=== PATIENT | female | born 1945 | race Caucasian/White ===

== ENCOUNTER 2022-01-21 09:31 | Outpatient (CLI) | payer MEDICARE, SELFPAY ==
--- NOTE | 2022-01-21 10:57 | ECHO_ITS ---
Patient Info Name: Ivet Vergara Age: 76 years : 1945 Gender: Female Ht: 67 in Wt: 167 lbs BSA: 1.91 m2 HR: 72 bpm BP: 120 / 67 mmHg Technical Quality: Good Exam Date: 01/21/2022 11:20 AM Exam Location: [facility] Patient Status: Outpatient Admit Date: 01/21/2022 Staff Ordering Physician: Raudel De La Torre DO Survey Rodman: Jason Sanders RDCS, RT Attending Provider: Raudel De La Torre DO Referring Physician: Wil BENNETT; Exam Type: CA echo doppler color flow Study Info Indications I34.0 - Nonrheumatic mitral (valve) insufficiency Complete two-dimensional, color flow and Doppler transthoracic echocardiogram is performed. Strain analysis performed. Summary 1. Complete two-dimensional, color flow and Doppler transthoracic echocardiogram is performed. 2. Left ventricular chamber dimension is normal. 3. Left ventricular systolic function is normal, estimated at 60-65%. 4. The left ventricular diastolic function is normal. 5. E/e' 9 is minimally elevated. 6. Global longitudinal strain is normal at -19.5%. 7. Left atrial chamber dimension is mildly enlarged. 8. Right atrial chamber dimension is mildly enlarged. 9. There is mild aortic valve sclerosis. 10. There is mild aortic valve regurgitation. 11. There is mild to moderate mitral valve regurgitation. 12. There is moderate tricuspid valve regurgitation. 13. Mild pulmonary hypertension, estimated pulmonary arterial systolic pressure is 42 mmHg. 14. There is mild pulmonic regurgitation. Left Ventricle E/e' 9 is minimally elevated. Global longitudinal strain is normal at -19.5%. Left ventricular chamber dimension is normal. Left ventricular systolic function is normal, estimated at 60-65%. The left ventricular diastolic function is normal. Right Ventricle Right ventricular systolic function is normal and with normal TAPSE 2.9 cm. Right ventricular chamber dimension is normal. Left Atria Left atrial chamber dimension is mildly enlarged. Right Atria Right atrial chamber dimension is mildly enlarged. Aortic Valve The aortic valve is trileaflet. There is mild aortic valve sclerosis. There is no aortic valve stenosis. There is mild aortic valve regurgitation. Pulmonic Valve There is mild pulmonic regurgitation. Mitral Valve There is no mitral valve stenosis. There is mild to moderate mitral valve regurgitation. Tricuspid Valve There is moderate tricuspid valve regurgitation. Mild pulmonary hypertension, estimated pulmonary arterial systolic pressure is 42 mmHg. Pericardium/Pleural There is no pericardial effusion. Inferior Vena Cava Normal inferior vena cava with >50% collapse upon inspiration consistent with normal right atrial pressure, 5 mmHg. Aorta The aortic root size at the sinus of Valsalva is normal. Left Ventricular Outflow Tract Name Value Normal LVOT 2D LVOT Diameter 2.1 cm LVOT Doppler LVOT Peak Gradient 4 mmHg LVOT Mean Gradient 2 mmHg LVOT VTI 23 cm LVOT VTI/AV VTI Ratio 0.6
== END 2022-01-21 09:32 | disposition home or self-care (01) ==
LOC: ANHCARD 09:32
PROVIDERS: PCP Internal Medicine; Visit Provider Internal Medicine Cardiovascular Disease
DX: I34.0 Nonrheumatic mitral (valve) insufficiency (principal); I35.1 Nonrheumatic aortic (valve) insufficiency; I36.1 Nonrheumatic tricuspid (valve) insufficiency; I27.20 Pulmonary hypertension, unspecified; I37.1 Nonrheumatic pulmonary valve insufficiency
CPT/HCPCS: 93306

== ENCOUNTER 2022-11-16 10:23 | Outpatient (CLI) | payer MEDICARE, SELFPAY ==
--- NOTE | ~2022-11-16 | US_ITS ---
EXAMINATION: US carotid duplex BI DATE: 11/16/2022 12:09 INDICATION: Dizziness. Giddiness. TECHNIQUE: Grayscale, color Doppler, and pulsed Doppler images of the cervical carotid arteries were obtained. The degree of vessel stenosis is placed in one of the following categories: normal, <50%, 5 0-69%, >=70% but less than near-occlusion, near-occlusion, or total occlusion. Note that percent sten osis relative to normal distal artery lumen diameter is indirectly measured from velocity measurement s as described by Alessandro, et al. Radiology 2003; 229:340-346. Notes: Normal: Peak systolic velocity <125 centimeters/sec and no plaque <50%. Peak systolic velocity <125 ( EDV <40; ICA/CCA PSV ratio <2.0; used these factors only a tandem lesions or low cardiac output or co ntralateral disease) 50-69 %: PSV 125-230 (EDV 40-100; ratio 2-4) >= 70% but less than near occlusion: PSV greater than 230 (EDV > 100; ratio> 4.0) Near Occlusion: PSV that is variable; markedly narrowed lumen Occlusion: Absent flow on color/spectral Doppler and no lumen on miles scale. COMPARISON: None. FINDINGS: RIGHT: The right common carotid artery (CCA) peak systolic velocity (PSV) is 73 cm/s. The right internal car otid artery (ICA) PSV is 72 cm/s. The right ICA end-diastolic velocity (EDV) is 17 cm/s. The right IC A/CCA PSV ratio is 1.0. The external carotid artery (ECA) PSV is 99 cm/s. There is antegrade flow in the right vertebral artery. LEFT: The left CCA PSV is 81 cm/s. The left ICA PSV is 110 cm/s. The left ICA EDV is 36 cm/s. The left ICA/ CCA PSV ratio is 1.4. The ECA PSV is 79 cm/s. There is antegrade flow in the left vertebral artery. IMPRESSION: 1. Less than 50% stenosis in the right internal carotid artery by sonographic criteria. 2. Less than 50% stenosis in the left internal carotid artery by sonographic criteria. Reviewed, dictated and finalized at location A. E PAINTER IMPRESSION: 1. Less than 50% stenosis in the right internal carotid artery by sonographic chirag bae. 2. Less than 50% stenosis in the left internal carotid artery by sonographic jovan gupta.
== END 2022-11-16 10:24 | disposition home or self-care (01) ==
PROVIDERS: PCP Physician Assistant Medical; Visit Provider Nurse Practitioner Family
DX: R42 Dizziness and giddiness (principal); I65.23 Occlusion and stenosis of bilateral carotid arteries
CPT/HCPCS: 93880

== ENCOUNTER 2022-12-02 08:13 | Outpatient (CLI) | payer MEDICARE, SELFPAY ==
--- NOTE | ~2022-12-02 | NM_ITS ---
EXAMINATION: NM roxi stress w perfusion DATE: 12/02/2022 12:09 INDICATION: Chest pain TECHNIQUE: Rest images were obtained following intravenous administration of 11.8 mCi Tc99m tetrofosm in (Myoview). The patient was infused intravenously with Lexiscan (Regadenoson). Then, 33 mCi Tc99m t etrofosmin (Myoview) was administered intravenously, and stress images were obtained. Data was recons tructed into short axis and horizontal and vertical long axis SPECT images. Gated SPECT images were a lso obtained. COMPARISON: None. FINDINGS: There is no definite reversible or fixed perfusion abnormality to suggest ischemia or infar ction. There is normal left ventricular chamber size, wall motion and ejection fraction. Left ventr icular ejection fraction measures >70%. IMPRESSION: 1. Normal myocardial perfusion at rest and during stress. 2. Left ventricular ejection fraction measuring >70%. Reviewed, dictated and finalized at location A. GATHERING TECHNICIAN
--- NOTE | 2022-12-02 11:07 | ECHO_ITS ---
Patient Info Name: Ivet Walton Age: 77 years : 1945 Gender: Female Ht: 67 in Wt: 165 lbs BSA: 1.89 m2 HR: 71 bpm BP: 132 / 73 mmHg Technical Quality: Good Exam Date: 12/02/2022 8:56 AM Exam Location: [facility] Patient Status: Outpatient Admit Date: 12/02/2022 Staff Ordering Physician: Raudel De La Torre DO Workers Compensation Claims Assistant: Victoria Marin RDCS Attending Provider: Raudel De La Torre DO Exam Type: CA echo doppler color flow Study Info Complete two-dimensional, color flow and Doppler transthoracic echocardiogram is performed. Summary 1. Complete two-dimensional, color flow and Doppler transthoracic echocardiogram is performed. 2. Left ventricular chamber dimension is normal. 3. Left ventricular systolic function is normal, estimated at 60-65%. 4. The left ventricular diastolic function is grade II diastolic dysfunction. 5. E/e' 8 is minimally elevated. 6. Left atrial chamber dimension is moderately enlarged. 7. There is mild aortic valve sclerosis. 8. There is mild aortic valve regurgitation. 9. There is moderate mitral valve regurgitation. 10. There is moderate tricuspid valve regurgitation. 11. No pulmonary hypertension, estimated pulmonary arterial systolic pressure is 39 mmHg. 12. There is mild pulmonic regurgitation. Left Ventricle E/e' 8 is minimally elevated. Left ventricular chamber dimension is normal. Left ventricular systolic function is normal, estimated at 60-65%. The left ventricular diastolic function is grade II diastolic dysfunction. Right Ventricle Right ventricular systolic function is normal and with normal TAPSE 2.6 cm. Right ventricular chamber dimension is normal. Left Atria Left atrial chamber dimension is moderately enlarged. Right Atria Right atrial chamber dimension is normal. Aortic Valve The aortic valve is trileaflet. There is mild aortic valve sclerosis. There is no aortic valve stenosis. There is mild aortic valve regurgitation. Pulmonic Valve There is mild pulmonic regurgitation. Mitral Valve There is no mitral valve stenosis. There is moderate mitral valve regurgitation. Tricuspid Valve There is moderate tricuspid valve regurgitation. No pulmonary hypertension, estimated pulmonary arterial systolic pressure is 39 mmHg. Pericardium/Pleural There is no pericardial effusion. Inferior Vena Cava Normal inferior vena cava with >50% collapse upon inspiration consistent with normal right atrial pressure, 5 mmHg. Aorta The aortic root size at the sinus of Valsalva is normal. Left Ventricular Outflow Tract Name Value Normal LVOT 2D LVOT Diameter 2.0 cm LVOT Doppler LVOT Peak Gradient 5 mmHg LVOT Mean Gradient 3 mmHg LVOT VTI 24 cm LVOT VTI/AV VTI Ratio 0.7 LVOT Stroke Volume 76 ml LVOT CO 14.8 l/min LVOT CI 7.8 l/min/m2 Pulmonic Valve Name
--- NOTE | 2022-12-02 11:15 | EST_ITS ---
Patient Info Name: Ivet Walton Age: 77 years : 1945 Gender: Female Ht: 67 in Wt: 165 lbs BSA: 1.89 m2 HR: 77 bpm BP: 156 / 82 mmHg Heart Rhythm: Sinus Rhythm Exam Date: 12/02/2022 11:14 AM Exam Location: [facility] Stress Patient Status: Outpatient Admit Date: 12/02/2022 Staff Ordering Physician: Raudel De La Torre DO Attending Provider: Raudel De La Torre DO Exercise Technologist: Neva Hargrove CT Exercise Physician: Raudel De La Torre DO Exam Type: CA stress roxi w NM Study Info Indications I35.9 - UNSPECIFIED VALVE DISORDERS A regadenoson stress test was performed. Summary 1. 1. Negative lexiscan stress test for ischemic ST changes by ECG criteria. 2. 2. Baseline hypertension. 3. 3. Nuclear scan to follow and will be reported separately. Please correlate with it. 4. 4. Patient informed of the above results. Protocol: Lexiscan Rest HR: 77 bpm Peak HR: 108 bpm Rest Sys BP: 156 mmHg Peak Sys BP: 177 mmHg Max Pred HR: 144 bpm % Max Pred HR: 75 % Target HR: 122 bpm Max RPP: 19,116 bpm*mmHg Termination Reason: Completed protocol Cardiac Symptoms: Shortness of breath Rest Horn BP: 82 mmHg Peak Horn BP: 85 mmHg Total Dose: 0.4 mg Resting ECG Sinus rhythm, frequent PVC's. Normal sinus rhythm - normal ECG. Stress ECG No ST changes. Arrhythmias None. Report Signatures
== END 2022-12-02 08:14 | disposition home or self-care (01) ==
PROVIDERS: PCP Physician Assistant Medical; Visit Provider Internal Medicine Cardiovascular Disease
DX: I34.0 Nonrheumatic mitral (valve) insufficiency (principal); R07.9 Chest pain, unspecified; I35.1 Nonrheumatic aortic (valve) insufficiency; I36.1 Nonrheumatic tricuspid (valve) insufficiency
CPT/HCPCS: 78452; 93017; 93306; A9502; J2785

== ENCOUNTER → 2023-09-27 09:41 | Outpatient (CLI) | payer MEDICARE, SELFPAY ==
--- NOTE | ~2023-09-27 | MR_ITS ---
EXAMINATION: MR brain/brain stem wo/w con DATE: 09/27/2023 10:26 INDICATION: Headache, unspecified. TECHNIQUE: Magnetic resonance imaging (MRI) of the brain and brainstem was performed without and with 13 mL MultiHance intravenous contrast. COMPARISON: None. FINDINGS: There are scattered areas of nonspecific increased T2-weighted signal intensity in the cere bral white matter and andry. There is no intracranial hemorrhage, acute infarction, or abnormal intrac ranial mass lesion. The ventricles are normal in size. There are likely changes of right ocular lens replacement surgery. There is mild mucosal thickening in the paranasal sinuses. There is a trace righ t mastoid effusion. IMPRESSION: 1. Moderate nonspecific cerebral white matter disease and pontine disease, which likely represents ch ronic small vessel ischemic disease. Reviewed, dictated and finalized at location A. 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 Moderate nonspecific cerebral white matter disease and pontine disease, whic h likely represents chronic small vessel ischemic disease.
== END ==
PROVIDERS: PCP Family Medicine; Visit Provider Family Medicine
DX: G43.909 Migraine, unspecified, not intractable, without status migrainosus (principal); R90.82 White matter disease, unspecified
CPT/HCPCS: 70553; A9577

== ENCOUNTER 2023-11-05 12:30 | Outpatient (RCR) | payer MEDICARE, SELFPAY ==
--- NOTE | 2023-09-02 16:31 | PTOPEVAL1 ---
Assessment and note entered by Milana Fofana, PT Evaluation Information Assessment Status Evaluation Diagnosis Migraine unspec, headaches unspec, cervical Spondylosis w/out radiculopathy or myelopathy Therapy conditions Cervicalgia, abnormal posture Onset weeks ago Subjective Information Pt reports has had headaches and migraines. Reports she went to Dr. Esquivel for her headaches and was referred to therapy. Was also provided new medication. Hasn't noticed a big difference with this The day after she was getting her hair done and just as she was standing up she felt like she was passing out. Caught herself and did not hit the ground. Went to the ER who found inflammation in the gut, slightly decreased magnesium, dehydration , IV fluids. Royal better after the fluids. Blood work and urine came back normal. Headache is all the time, but is positional. Looking up is the worst. History of multilevel anterior cervical fusion. Pt reports doesn't think this is migraines. States ankylosing spondylitis and it flares up in different areas of the body. Uses a type of prednisone when has flare ups. Pt repots prior level was functioning with one-two tylenol, and would lay down at times for her neck . This is what has been her norm for the last few months. Also has history of upper, middle, low back pain. Has been really bad the last 4 years. At the time was lifting her for mobilities and ADLs Reported Pain Level Pain Score 2: Self Report Assessment PT Clinical Summary Pt presents with complaints of headaches, migraines, and neck pain. Reports she doesn't think her headaches are migraines but that something is wrong with her neck. She has a history of multilevel anterior cervical fusion multiple years old. Reports her usual is one tylenol a day but her pain has increased recently in the last month after picking up pecans. Evaluation demos multiple areas of increased muscle tonicity, abnormal postures, decreased
--- NOTE | 2023-09-02 16:32 | OPREHPOC ---
Outpatient Therapy Plan of Care This is a Multidisciplinary Plan of Care that may contain components documented by all disciplines (PT, OT, and ST.) PT Problem 1 PT Problem #1 Knowledge Deficit PT Goal 1 Goal Pt will be independent in HEP Pt will verbalize understanding of diagnosis and prognosis Target Visit 8 PT Problem 2 PT Problem #2 Pain PT Goal 1 Goal Pt will report greatest pain level at 5/10 or less to improve ADLs Target Visit 8 PT Goal 2 Goal Pt will report greatest pain level at 2/10 or less to improve ADLs Target Visit 16 PT Problem 3 PT Problem #3 Impaired Flexibility PT Goal 1 Goal Pt will demo improved pectoralis major and minor flexibility to improve roundd postures Target Visit 16 PT Problem 4 PT Problem #4 Impaired Coordination PT Goal 1 Goal Pt will demo improved postures of forward head and rounded shoulders by 50% Target Visit 16
--- NOTE | 2023-09-22 14:43 | PCPTNOTE ---
Patient called & cancelled scheduled appointment this date due to waking up feeling dizzy not feeling safe to get out of the house today.
--- NOTE | 2023-10-04 14:07 | PTOPPROG ---
Assessment and note entered by Milana Fofana, PT Assessment Status Progress Report Diagnosis Migraine unspec, headaches unspec, cervical Spondylosis w/out radiculopathy Therapy conditions Cervicalgia, abnormal posture Subjective Information Pt reports still is rough at night. Took a Tylenol before therapy today. Reports is bummed about having ischemia all over. States looked at google and looked up information related to her ischemia. Pt reports still has headaches most of the time but the pain is less intense. Sometimes feels burning in forehead and face but sometimes is in the background. Occipital area is always in pain, sometimes in temples. Thinks had RSV and thinks when this is gone will be helpful. Reports had her CT of head, but believes they on purpose did not do her neck ecaue they may have heard she is being sent to a neurologist and that they may want to do it himself. Pt reports thinks some improvement overall. States only 10%, at times thinks is a little bit better. Assessment PT Clinical Summary Pt has attended 6 visits in 4 weeks, reports 10% improvement overall. Does show improvement in passive range of cervical spine, improved postures , improved tonicity, improved flexibility overall. Pt has partially met multiple goals and has fully met short term goal for posture and pectoral flexibility. Pt does appear to be diagnosis focused at times, will continue to benefit from physical therapy to address deficits, pain, and improve function. Plan of Care Interventions Electrical Stimulation,Hot Pack/Cold Pack,Manual Therapy,Neuro Re-education,Patient/Caregiver Educati,Therapeutic Activities,Therapeutic Exercise Other Interventions Taping, dry needling PT Services Indicated Yes Treatment Frequency and Cont POC 1-2 x weekly x 4 weeks Duration These treatments will address the objective and functional deficits as defined above. The patient will be advanced safely and appropriately in order for the patient to progress towards his/her prior level of function. Additional exercises will be introduced and as well as a comprehensive home exercise program upon discharge, if needed, ?to ensure carryover of functional gains achieved in the clinic. This treatment plan has been reviewed and agreement upon by the patient.
--- NOTE | 2023-10-18 16:02 | PCPTNOTE ---
Patient called & cancelled scheduled appointment this date due to having a doctor's appointment at same time of her treatment
--- NOTE | 2023-11-05 13:18 | PTOPDC ---
Assessment and note entered by Milana Fofana, PT Assessment Status Discharge Diagnosis Migraine unspec, headaches unspec, cervical Spondylosis w/out radiculopathy Onset weeks ago Subjective Information -Pt reports feeling close to back to her normal -Headaches are doing better. Pt states started to have a headache last night but used ice on her neck and this helped. -Takes 1 advil and 1 baby aspirin a day. Takes 1 Baclofen before going to bed. Was able to get a thicker pillow also and this has helped. -Pt reports reading a recipe is difficult due to eye sight and night time is the most difficult. Reported Pain Level Pain Score 1: Self Report Assessment PT Clinical Summary Pt has attended therapy consistently for her headaches and neck pain. Reports headaches are greatly improved. Cont to have neck pain that increases to 7/10 usually at night and with reading. Though her posture and alignment have improved, her rotation cervical ROM has improved, she cont to have restrictions WFL for post cervical fusion. Pt does at times repeat herself suggesting poor carry over of information at times thus may not be receiving full benefit of instruction for home and posture activities. However she appears to have met max benefit for therapy at this time.
== END 2023-11-05 13:29 | disposition home or self-care (01) ==
LOC: ANHHIPT 12:30
PROVIDERS: PCP Physician Assistant Medical; Visit Provider Family Medicine
DX: G43.909 Migraine, unspecified, not intractable, without status migrainosus (principal); M47.812 Spondylosis without myelopathy or radiculopathy, cervical region
CPT/HCPCS: 97014; 97110; 97112; 97140; 97162; 97750; G0283

== ENCOUNTER 2024-04-09 10:04 | Emergency (ER) | payer MEDICARE, SELFPAY ==
[2024-04-09] VITALS (7 sets, daily range): BP systolic 111–130; BP diastolic 45–56; PULSE 50–90; RESP 15–20; TEMP 36.6; O2SAT 98–100
--- NOTE | ~2024-04-09 | XR_ITS ---
XR chest 2V 04/09/2024 10:35 Indication: Shortness of breath. Chest pain. Procedure: PA and lateral views of the chest Comparison: 11/27/2022 Findings: There are diffuse bilateral interstitial infiltrates, likely edema. No significant effusion . No pneumothorax. Heart size normal. There are cholecystectomy clips. Impression: 1: Diffuse bilateral interstitial infiltrates, most likely edema. Reviewed, dictated and finalized at location B. Impression: 1: Diffuse bilateral interstitial infiltrates, most likely edema.
--- NOTE | 2024-04-09 10:14 | ECG_ITS ---
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 Measurements Intervals [place] Rate: 82 P: 192 NV: 145 QRS: 1 QRSD: 86 T: 42 QT: 355 QTc: 417 Interpretive Statements SINUS RHYTHM WITH PVCS OCCURRING IN A PATTERN OF BIGEMINY LOW QRS VOLTAGE ABNORMAL ECG No previous ECG available for comparison Electronically Signed On 04-10-2024 07:58:46 CDT by Nahum Lamar M.D.
[2024-04-09 10:30] LABS: Basophils Absolute Auto 0.1 K/mm3 (0.0-0.1); Basophils Percent Auto 1.2 % (0.2-1.2); Eosinophils Absolute Auto 0.2 K/mm3 (0-0.3); Eosinophils Percent Auto 2.8 % (0-4.4); Hematocrit 33.5 % (37.0-47.0); Hemoglobin 11.1 g/dL (12.0-15.0); Immature Granulocyte Absolute 0.01 K/mm3 (0.00-0.031); Immature Granulocyte Percent A 0.1 % (0-0.5); Lymphocytes Absolute Auto 2.35 K/mm3 (0.9-3.2); Lymphocytes Percent Auto 31.7 % (18.3-44.2); Mean Corpuscular HGB Conc 33.1 g/dl (32-36); Mean Corpuscular Hemoglobin 32.2 pg (26-34); Mean Corpuscular Volume 97.1 fl (80-100); Mean Platelet Volume 11.6 fl (7.4-10.4); Monocytes Absolute Auto 0.9 K/mm3 (0.1-0.6); Monocytes Percent Auto 12.3 % (2.6-8.5); Neutrophils Absolute Auto 3.9 K/mm3 (1.3-6.7); Neutrophils Percent Auto 51.9 % (45.5-73.1); Platelet Count Result 259 k/mm3 (150-375); Red Blood Count 3.45 M/mm3 (4.2-5.4); Red Cell Distribution Width 14.3 % (11.5-14.5); White Blood Count 7.4 K/mm3 (4.5-10.0)
[2024-04-09 10:39] LABS: Alanine Aminotransferase 21 U/L (6-35); Albumin Level 3.7 g/dL (3.5-5.1); Alkaline Phosphatase 108 U/L (38-126); Anion Gap 8 mmol/L (4-12); Aspartate Amino Transferase 37 U/L (14-36); Bilirubin,Total 0.5 mg/dL (0.2-1.3); Blood Urea Nitrogen 19 mg/dL (7-17); Calcium 8.4 mg/dL (8.4-10.2); Carbon Dioxide 23 mmol/L (22-30); Chloride 108 mmol/L (98-107); Estimated CRCL calculation 40 ml/min; Estimated Glomerular Filt Rate 54; Glucose 98 mg/dL (65-110); Sodium 139 mmol/L (137-145)
[2024-04-09] MEDS: LEVALBUTEROL NEB 1.25 MG/3 ML 2.5 MG INHALATION (11:04)
[2024-04-09 11:56] LABS: NT Pro B Type Natriuretic Pept 5730 pg/mL (19.9-100)
[2024-04-09] MEDS: FUROSEMIDE INJ 40 MG/4 ML VIAL IV PUSH (12:23)
--- NOTE | 2024-04-09 12:36 | ED.SOB ---
HPI - SOB/Dyspnea General Chief Complaint: Shortness of Breath/Dyspnea Stated Complaint: sob, cough Time Seen by Provider: 04/09/24 10:16 History of Present Illness HPI Narrative: Patient is a 79-year-old female who presents ER with cough mild shortness of breath. Worsening over last few days. Associated with a 7 lb weight gain. No lower extremity edema. Denies chest pain chest pressure. No runny nose or sore throat or productive cough. Does not necessarily endorse orthopnea. She sees Dr. De La Torre and has a monitor due to her bigeminy. Related Data Home Medications Medication Instructions Recorded Confirmed valacyclovir 500 mg tablet 500 mg .Route .COMPLEX 10/07/22 01/05/24 cholecalciferol (vitamin D3) 50 50 mcg PO DAILY 04/06/23 01/05/24 mcg (2,000 unit) capsule famotidine 20 mg tablet 20 mg PO DAILY 04/06/23 01/05/24 multivitamin 1 tablet PO DAILY 04/06/23 01/05/24 Allergies Allergy/AdvReac Type Severity Reaction Status Date / Time Opioids - Morphine Analogues Allergy Intermediate Swelling Verified 04/09/24 10:28 tramadol [From Ultracet] AdvReac Severe Itching Verified 04/09/24 10:28 ubrogepant [From Ubrelvy] AdvReac Severe Headache Verified 04/09/24 10:28 Qulipta AdvReac Severe Headache Uncoded 04/09/24 10:28 Review of Systems Review of Systems: All systems reviewed & are unremarkable except as noted in HPI and below Constitutional: Constitutional: Reports no additional constitutional complaints ENT: Reports system reviewed and no additional complaints, except as documented Cardiovascular: Cardiovascular: Reports no additional cardiovascular complaints Respiratory: Respiratory: Reports cough, Denies dyspnea and Denies wheezing Gastrointestinal: Gastrointestinal: Reports no additional gastrointestinal complaints Musculoskeletal: Musculoskeletal: Reports no additional musculoskeletal complaints [facility] Past Medical History Medical History Ankylosing spondylitis Arthritis CAD (coronary artery disease) Cervical osteoarthritis Congestive heart failure with left ventricular diastolic dysfunction Degenerative arthritis of knee, bilateral Fibromyalgia Headache Headache History of heart attack History of hiatal hernia IBS (irritable bowel syndrome) Left shoulder pain Migraine Preoperative clearance Surgical History Surgical History H/O colonoscopy with polypectomy 01/21/23 Dr. Mark History of axillary surgery History of cataract surgery History of foot surgery History of hand surgery History of neck surgery History of rotator cuff surgery History of tonsillectomy and adenoidectomy Family History Family History Mother Kidney malignancy Social History Social History Smoking status: Never smoker Alcohol intake: never Substance use: never Substance use type: does not use Lack of Transportation: No Lack of Food: Never True Current Housing: I Have Housing Concerned About Future Housing: No Difficulty Paying Gas/Electric Bills: No Difficulty Paying for Meds: No Currently Unemployed: No Education: High School Diploma/GED Difficulty w/ Childcare or Family Care: No Living arrangements: with family Occupation/Education: retired Gender identity (if verbalized by the patient): Female Sexual Orientation (if Verbalized by the Patient): Straight or Heterosexual Exam Narrative: GENERAL: Well-appearing, well-nourished, and in no acute distress. HEAD: Normocephalic, atraumatic. ENT: Mucous membranes moist. CHEST: Faint basilar crackles. No respiratory distress. HEART: Regular rate and rhythm. Normal peripheral pulses. ABDOMEN: Soft, nontender, nondistended. EXTREMITIES: Normal range of motion. No edema. SKIN: Warm, dry, no rash. NEUR
== END 2024-04-09 13:40 | disposition home or self-care (01) ==
PROVIDERS: Emergency Provider Emergency Medicine; PCP Family Medicine
DX: I50.9 Heart failure, unspecified (principal); M19.90 Unspecified osteoarthritis, unspecified site; I25.10 Atherosclerotic heart disease of native coronary artery without angina pectoris; M79.7 Fibromyalgia; I25.2 Old myocardial infarction
CPT/HCPCS: 36415; 71046; 80053; 83880; 85025; 93005; 94640; 96374; 99284; J1940

== ENCOUNTER 2024-05-25 08:14 | Outpatient (CLI) | payer MEDICARE, SELFPAY ==
--- NOTE | ~2024-05-25 | NM_ITS ---
EXAMINATION: NM roxi stress w perfusion DATE: 05/25/2024 11:53 INDICATION: Ventricular tachycardia TECHNIQUE: Rest images were obtained following intravenous administration of 9.9 mCi Tc99m tetrofosmi n (Myoview). The patient was infused intravenously with Lexiscan (Regadenoson). Then, 31.2 mCi Tc99m tetrofosmin (Myoview) was administered intravenously, and stress images were obtained. Data was recon structed into short axis and horizontal and vertical long axis SPECT images. Gated SPECT images were also obtained. COMPARISON: None. FINDINGS: There is no definite reversible or fixed perfusion abnormality to suggest ischemia or infar ction. There is normal left ventricular chamber size, wall motion and ejection fraction. Left ventr icular ejection fraction measures 64%. IMPRESSION: 1. Normal myocardial perfusion at rest and during stress. 2. Left ventricular ejection fraction measuring 64%. Reviewed, dictated and finalized at location A.
--- NOTE | 2024-05-25 08:42 | ECHO_ITS ---
Patient Info Name: Ivet Walton Age: 79 years : 1945 Gender: Female Ht: 67 in Wt: 150 lbs BSA: 1.80 m2 HR: 78 bpm BP: 131 / 78 mmHg Heart Rhythm: Sinus Arrhythmia Technical Quality: Good Exam Date: 05/25/2024 9:12 AM Exam Location: Echo Lab Patient Status: Outpatient Admit Date: 05/25/2024 Staff Ordering Physician: Raudel De La Torre DO Oyster Culturist: Priyanka Rodas RDCS Attending Provider: Raudel De La Torre DO Referring Physician: Wil BENNETT; Exam Type: CA echo doppler color flow Study Info Indications - other ventricular tacchycardia Complete two-dimensional, color flow and Doppler transthoracic echocardiogram is performed. Summary 1. Complete two-dimensional, color flow and Doppler transthoracic echocardiogram is performed. 2. Left ventricular chamber dimension is normal. 3. Left ventricular systolic function is normal, estimated at 65-70%. 4. The left ventricular diastolic function is abnormal. 5. E/e' 10 is mildly elevated. 6. Left atrial chamber dimension is moderately enlarged. 7. Right atrial chamber dimension is moderately enlarged. 8. There is mild aortic valve sclerosis. 9. There is mild aortic valve regurgitation. 10. There is moderate mitral valve regurgitation. 11. There is moderate to severe tricuspid valve regurgitation. 12. Moderate pulmonary hypertension, estimated pulmonary arterial systolic pressure is 51 mmHg. 13. There is trace pulmonic regurgitation. Left Ventricle E/e' 10 is mildly elevated. Left ventricular chamber dimension is normal. Left ventricular systolic function is normal, estimated at 65-70%. The left ventricular diastolic function is abnormal. Right Ventricle Right ventricular systolic function is normal and with normal TAPSE 2.7 cm. Right ventricular chamber dimension is normal. Left Atria Left atrial chamber dimension is moderately enlarged. Right Atria Right atrial chamber dimension is moderately enlarged. Aortic Valve The aortic valve is trileaflet. There is mild aortic valve sclerosis. There is no aortic valve stenosis. There is mild aortic valve regurgitation. Pulmonic Valve There is trace pulmonic regurgitation. Mitral Valve There is no mitral valve stenosis. There is moderate mitral valve regurgitation. Tricuspid Valve There is moderate to severe tricuspid valve regurgitation. Moderate pulmonary hypertension, estimated pulmonary arterial systolic pressure is 51 mmHg. Pericardium/Pleural There is no pericardial effusion. Inferior Vena Cava Normal inferior vena cava with >50% collapse upon inspiration consistent with normal right atrial pressure, 5 mmHg. Aorta The aortic root size at the sinus of Valsalva is normal. Left Ventricular Outflow Tract Name Value Normal LVOT 2D LVOT Diameter 2.0 cm LVOT Doppler LVOT Peak Gradient 2 mmHg LVOT Mean Gradient 1 mmHg LVOT VTI 20 cm LVOT VTI/AV VTI Ratio 0.6 LVOT Stroke Volume 61 ml LVOT CO 3.4 l/min LVOT CI 1.9 l/min/m2 Mitral Valve
--- NOTE | 2024-05-25 10:02 | EST_ITS ---
Patient Info Name: Ivet Walton Age: 79 years : 1945 Gender: Female Ht: 67 in Wt: 150 lbs BSA: 1.80 m2 HR: 59 bpm BP: 141 / 80 mmHg Heart Rhythm: Sinus Rhythm Exam Date: 05/25/2024 10:54 AM Exam Location: Echo Lab Patient Status: Outpatient Admit Date: 05/25/2024 Staff Ordering Physician: Raudel De La Torre DO Attending Provider: Raudel De La Torre DO Exercise Technologist: Neva Hargrove CT Exercise Physician: Raudel De La Torre DO Exam Type: CA stress roxi w NM Study Info Indications I47.2 - Ventricular tachycardia A regadenoson stress test was performed. Summary 1. 1. Negative lexiscan stress test for ischemic ST changes by ECG criteria. 2. 2. Stable hemodynamics throughout the test. 3. 3. Nuclear scan to follow and will be reported separately. Please correlate with it. 4. 4. Patient informed of the above results. Protocol: Lexiscan Rest HR: 59 bpm Peak HR: 76 bpm Rest Sys BP: 141 mmHg Peak Sys BP: 138 mmHg Max Pred HR: 142 bpm % Max Pred HR: 54 % Target HR: 121 bpm Max RPP: 10,488 bpm*mmHg Termination Reason: Completed protocol Cardiac Symptoms: Shortness of breath Total Time: 1 min : 0 sec Rest Horn BP: 80 mmHg Peak Horn BP: 60 mmHg Total Dose: 0.4 mg Resting ECG Sinus rhythm. Stress ECG No ST changes. Arrhythmias None. Report Signatures
== END 2024-05-25 08:15 | disposition home or self-care (01) ==
LOC: ANHCARD 08:15
PROVIDERS: PCP Family Medicine; Visit Provider Internal Medicine Cardiovascular Disease
DX: I47.29 Other ventricular tachycardia (principal)
CPT/HCPCS: 78452; 93017; 93306; A9502; J2785

== ENCOUNTER 2024-06-05 11:39 | Observation (INO) | payer MEDICARE, SELFPAY ==
[2024-06-05] VITALS (43 sets, daily range): BP systolic 100–137; BP diastolic 40–60; PULSE 49–90; RESP 11–29; TEMP 36.6–36.7; O2SAT 96–100; BMI 23.3
--- NOTE | ~2024-06-05 | CT_ITS ---
EXAMINATION: CTA chest PE protocol DATE: 06/05/2024 18:13 INDICATION: chest pain TECHNIQUE: Computed tomography angiography (CTA) of the chest was performed with 100 mL Omnipaque-350 intravenous contrast timed to evaluate the pulmonary arteries. Coronal maximum intensity projection 3D-reconstructions were created by the technologist. The dose-length product (DLP) was 206.66 mGy-cm. Automated exposure control and iterative reconstruction technique were employed. COMPARISON: X-ray chest, same date. FINDINGS: Lung parenchyma and airways: Mild septal thickening and scattered groundglass opacities.. Pleura: Unremarkable. Thoracic inlet, axillae and chest wall: Unremarkable. Thoracic aorta: No significant dilation. No dissection. Mediastinum: Small hiatal hernia. Dilated central pulmonary arteries as can be seen with pulmonary ar terial hypertension. Heart and pericardium: Cardiomegaly. Mitral calcification. Coronary artery calcifications: Mild. Upper abdomen: No significant finding. Status post cholecystomy. Bones: No acute osseous finding. Partially visualized ACDF hardware. Pulmonary arteries: Study quality: Adequate. No pulmonary emboli detected. IMPRESSION: No CT evidence of acute pulmonary embolus. Mild interstitial pulmonary edema. Reviewed, dictated and finalized at location K.
--- NOTE | ~2024-06-05 | XR_ITS ---
EXAMINATION: XR chest 2V DATE: 06/05/2024 12:37 INDICATION: Bradycardia. Dizziness. TECHNIQUE: Frontal and lateral views of the chest were obtained. COMPARISON: Chest 2 views 05/22/2024 FINDINGS: There is a diffuse interstitial pattern in the lungs. No pleural effusion or pneumothorax. The heart size is normal. There are changes of anterior fusion procedure in cervical spine. Surgical clips in the right upper quadrant are likely from cholecystectomy. There is mild chronic anterior wed ging of multiple vertebral bodies. IMPRESSION: 1. Diffuse interstitial pattern in the lungs, consistent with mild pulmonary edema versus chronic akshat g disease. Reviewed, dictated and finalized at location A. IMPRESSION: 1. Diffuse interstitial pattern in the lungs, consistent with mild pulmonary ed nat[place] versus chronic lung disease.
--- NOTE | 2024-06-05 11:40 | ECG_ITS ---
Test Date: 2024-06-05 11:43:03 Measurements Intervals [place] Rate: 64 P: 74 [place]: 205 QRS: -1 QRSD: 93 T: 51 QT: 389 QTc: 404 Interpretive Statements SINUS RHYTHM WITH FREQUENT VENTRICULAR PREMATURE COMPLEXES IN A BIGEMINAL PATTERN CONSIDER PREVIOUSSEPTAL MYOCARDIAL INFARCTION , ABNORMAL ECG Compared to ECG 04/09/2024 10:18:40 NO SIGNIFICANT CHANGE Electronically Signed On 06-05-2024 17:13:40 CDT by Nahum Lamar M.D.
[2024-06-05 13:05] LABS: Basophils Absolute Auto 0.1 K/mm3 (0.0-0.1); Basophils Percent Auto 0.9 % (0.2-1.2); Eosinophils Absolute Auto 0.2 K/mm3 (0-0.3); Eosinophils Percent Auto 2.6 % (0-4.4); Hematocrit 31.3 % (37.0-47.0); Hemoglobin 10.3 g/dL (12.0-15.0); Immature Granulocyte Absolute 0.01 K/mm3 (0.00-0.031); Immature Granulocyte Percent A 0.2 % (0-0.5); Lymphocytes Absolute Auto 1.89 K/mm3 (0.9-3.2); Lymphocytes Percent Auto 32.4 % (18.3-44.2); Mean Corpuscular HGB Conc 32.9 g/dl (32-36); Mean Corpuscular Hemoglobin 31.8 pg (26-34); Mean Corpuscular Volume 96.6 fl (80-100); Mean Platelet Volume 10.9 fl (7.4-10.4); Monocytes Absolute Auto 0.7 K/mm3 (0.1-0.6); Monocytes Percent Auto 11.3 % (2.6-8.5); Neutrophils Absolute Auto 3.1 K/mm3 (1.3-6.7); Neutrophils Percent Auto 52.6 % (45.5-73.1); Platelet Count Result 266 k/mm3 (150-375); Red Blood Count 3.24 M/mm3 (4.2-5.4); Red Cell Distribution Width 14.5 % (11.5-14.5); White Blood Count 5.8 K/mm3 (4.5-10.0)
[2024-06-05 13:15] LABS: Alanine Aminotransferase 26 U/L (6-35); Alkaline Phosphatase 89 U/L (38-126); Anion Gap 7 mmol/L (4-12); Aspartate Amino Transferase 41 U/L (14-36); Bilirubin,Total 0.2 mg/dL (0.2-1.3); Blood Urea Nitrogen 22 mg/dL (7-17); Calcium 8.6 mg/dL (8.4-10.2); Carbon Dioxide 26 mmol/L (22-30); Chloride 103 mmol/L (98-107); Estimated CRCL calculation 45 ml/min; Estimated Glomerular Filt Rate > 60; Glucose 87 mg/dL (65-110); Lipase 58 U/L (23-300); Potassium 4.2 mmol/L (3.4-5.0); Sodium 136 mmol/L (137-145)
[2024-06-05] MEDS: ASPIRIN 81 MG CHEWABLE TABLET 324 MG PO (13:20)
[2024-06-05 13:24] LABS: INR 1.3; Prothrombin Time 16.8 Seconds (11.1-14.7)
[2024-06-05 13:25] LABS: Partial Thromboplastin Time 38.4 Seconds (22.3-36.8)
[2024-06-05 13:29] LABS: Troponin I < 0.012 ng/mL (0.000-0.034)
[2024-06-05] MEDS: SODIUM CHLORIDE 0.9% IV 500 ML 999 ML IV CONT (13:42)
--- NOTE | 2024-06-05 15:02 | ED.DIZZY ---
HPI - Dizziness General Chief Complaint: Dizziness Stated Complaint: chest pain Time Seen by Provider: 06/05/24 12:47 History of Present Illness HPI Narrative: This is a 79-year-old female, with history of coronary artery disease diastolic blood pressure, who presents emergency department complaining of lightheadedness and chest pain beginning at approximately 03:00 o'clock this morning. The patient states he was at rest when she felt palpitations and sharp chest pain. This worsens with standing and was associated with lightheadedness. She denies loss of consciousness, focal weakness or numbness. She has no other complaints at this time. Related Data Home Medications Medication Instructions Recorded Confirmed valacyclovir 500 mg tablet 500 mg .Route .COMPLEX 10/07/22 05/29/24 cholecalciferol (vitamin D3) 50 50 mcg PO DAILY 04/06/23 05/29/24 mcg (2,000 unit) capsule famotidine 20 mg tablet 20 mg PO DAILY 04/06/23 05/29/24 multivitamin 1 tablet PO DAILY 04/06/23 05/29/24 amitriptyline 25 mg tablet 25 mg PO DAILY 04/10/24 05/29/24 baclofen 10 mg tablet 10 mg PO DAILY 04/10/24 05/29/24 Allergies Allergy/AdvReac Type Severity Reaction Status Date / Time Opioids - Morphine Analogues Allergy Intermediate Swelling Verified 06/05/24 13:22 tramadol [From Ultracet] AdvReac Severe Itching Verified 06/05/24 13:22 ubrogepant [From Ubrelvy] AdvReac Severe Headache Verified 06/05/24 13:22 Qulipta AdvReac Severe Headache Uncoded 06/05/24 13:22 Review of Systems Review of Systems: All systems reviewed & are unremarkable except as noted in HPI and below PMFSH Past Medical History Medical History Ankylosing spondylitis Arthritis CAD (coronary artery disease) Cervical osteoarthritis Congestive heart failure with left ventricular diastolic dysfunction Degenerative arthritis of knee, bilateral Fibromyalgia Headache Headache History of heart attack History of hiatal hernia IBS (irritable bowel syndrome) Left shoulder pain Migraine Preoperative clearance Surgical History Surgical History H/O colonoscopy with polypectomy 01/21/23 Dr. Mark History of axillary surgery History of cataract surgery History of foot surgery History of hand surgery History of neck surgery History of rotator cuff surgery History of tonsillectomy and adenoidectomy Family History Family History Mother Kidney malignancy Social History Social History Smoking status: Never smoker Alcohol intake: never Substance use: never Substance use type: does not use Lack of Transportation: No Lack of Food: Never True Current Housing: I Have Housing Concerned About Future Housing: No Difficulty Paying Gas/Electric Bills: No Difficulty Paying for Meds: No Currently Unemployed: No Education: High School Diploma/GED Difficulty w/ Childcare or Family Care: No Living arrangements: with family Occupation/Education: retired Gender identity (if verbalized by the patient): Female Sexual Orientation (if Verbalized by the Patient): Straight or Heterosexual Exam Narrative: GENERAL: Well-developed, well-nourished, and in no acute distress. HEAD: Normocephalic, atraumatic. EYES: PERRLA and EOMI. CHEST: Faint rales in the bilateral upper lung lira with normal breath sounds in the bilateral lower lung lira. No respiratory distress. No rales or rhonchi HEART: Regular rate and rhythm. No murmur heard. Normal peripheral pulses. ABDOMEN: Soft, nontender, nondistended, normal active bowel sounds. EXTREMITIES: Normal range of motion. No edema. SKIN: Warm, dry, no rash. NEURO: Alert and oriented x3. No focal deficit. Moving all 4 limbs spontaneously PSYCH: Normal mood and affect. Course Course Emergency Course:
[2024-06-05 15:38] LABS: Troponin I < 0.012 ng/mL (0.000-0.034)
--- NOTE | 2024-06-05 16:05 | PM.IMHP ---
H&P: HPI History of Present Illness Date/Time: 06/05/24 16:05 Chief Complaint: Chest pain dizziness Narrative: This is a 79-year-old female, with history of coronary artery disease diastolic blood pressure, who presents emergency department complaining of lightheadedness and chest pain beginning at approximately 03:00 o'clock this morning. She states that she went to bed at 930 and finally fell asleep at 12. She was only about couple of hours sleep when she woke up with pain in left leg and some Voltaren gel. While she was doing that palpitations in the middle of the chest. She checked her pulse oxygen with our machine which was showing at 33/34 go to 40s. It lasted for about half an hour and after which she started hurting in her chest which was sharp in quality. This lasted for about half an hour and subsequently subsided. She felt better after that but still thought should come to get checked out. the patient does endorse some cough which has been ongoing since past few weeks now. no fever, chills. cough without expectoration. Review of Systems Review of Systems: - CONSTITUTIONAL: Denies weight loss, fever and chills. - HEENT: Denies changes in vision and hearing - RESPIRATORY: Denies SOB and reports cough. - CV: reports palpitations and CP. - GI: Denies abdominal pain, nausea, vomiting and diarrhea. - : Denies dysuria and urinary frequency. - MSK: Denies myalgia and joint pain. - SKIN: Denies rash and pruritus. - NEUROLOGICAL: Denies headache and syncope. reports dizziness - PSYCHIATRIC: Denies recent changes in mood. Denies anxiety and depression. [facility] Past Medical History Medical History Ankylosing spondylitis Arthritis CAD (coronary artery disease) Cervical osteoarthritis Congestive heart failure with left ventricular diastolic dysfunction Degenerative arthritis of knee, bilateral Fibromyalgia Headache Headache History of heart attack History of hiatal hernia IBS (irritable bowel syndrome) Left shoulder pain Migraine Preoperative clearance Surgical History Surgical History H/O colonoscopy with polypectomy 01/21/23 Dr. Mark History of axillary surgery History of cataract surgery History of foot surgery History of hand surgery History of neck surgery History of rotator cuff surgery History of tonsillectomy and adenoidectomy Family History Family History Mother Kidney malignancy Social History Social History Smoking status: Never smoker Alcohol intake: never Substance use: never Substance use type: does not use Lack of Transportation: No Lack of Food: Never True Current Housing: I Have Housing Concerned About Future Housing: No Difficulty Paying Gas/Electric Bills: No Difficulty Paying for Meds: No Currently Unemployed: No Education: High School Diploma/GED Difficulty w/ Childcare or Family Care: No Living arrangements: with family Occupation/Education: retired Gender identity (if verbalized by the patient): Female Sexual Orientation (if Verbalized by the Patient): Straight or Heterosexual Meds Home Medications and Allergies Home Medications Medication Instructions Recorded Confirmed Type valacyclovir 500 mg tablet 500 mg .Route .COMPLEX 10/07/22 05/29/24 History cholecalciferol (vitamin D3) 50 50 mcg PO DAILY 04/06/23 05/29/24 History mcg (2,000 unit) capsule famotidine 20 mg tablet 20 mg PO DAILY 04/06/23 05/29/24 History multivitamin 1 tablet PO DAILY 04/06/23 05/29/24 History apixaban 5 mg tablet (Eliquis) 5 mg PO BID #60 tabs 03/28/24 05/29/24 Rx furosemide 20 mg tablet (Lasix) 20 mg PO DAILY #7 tabs 04/09/24 05/29/24 Rx amitriptyline 25 mg tablet 25 mg PO DAILY 04/10/24 05/29/24 History baclofen 10 mg t
--- NOTE | 2024-06-05 17:04 | PC.NURSE ---
dinner tray ordered at this time
--- NOTE | 2024-06-05 18:39 | ECG_ITS ---
Test Date: 2024-06-05 18:47:52 Measurements Intervals [place] Rate: 56 P: 77 [place]: 223 QRS: 22 QRSD: 86 T: 40 QT: 425 QTc: 412 Interpretive Statements SINUS BRADYCARDIA WITH FIRST DEGREE AV BLOCK WITH OCCASIONAL SUPRAVENTRICULAR PREMATURE COMPLEXES Compared to ECG 06/05/2024 11:43:03 Ventricular premature complex(es) no longer present Electronically Signed On 06-06-2024 14:36:49 CDT by Emanuel Ortiz M.D.
[2024-06-05] MEDS: FUROSEMIDE INJ 40 MG/4 ML VIAL 20 MG IV PUSH (19:02)
[2024-06-05 19:12] LABS: NT Pro B Type Natriuretic Pept 2270 pg/mL (19.9-100)
[2024-06-05 19:15] LABS: Troponin I < 0.012 ng/mL (0.000-0.034)
--- NOTE | 2024-06-05 21:55 | PC.NURSE ---
This patient, Ivet Walton, was admitted to IMU Room 206-01. Patient/family oriented to hospital policies and general routines including ID bracelet, bed and alarms, visiting hours, pain management, procedures, bathroom and other care routines, personal items, smoking policy, room service/diet, and visiting hours. Information on how to activate the Rapid Response Team has been discussed. Patient/Family are encouraged to report perceived risks to care and to ask questions if they do not understand what they are told or what they should do.
[2024-06-06] VITALS (18 sets, daily range): BP systolic 99–119; BP diastolic 36–88; PULSE 59–100; RESP 12–20; TEMP 36.6–36.9; O2SAT 96–100
--- NOTE | 2024-06-06 03:00 | ECG_ITS ---
Test Date: 2024-06-06 03:08:15 Measurements Intervals [place] Rate: 60 P: 69 [place]: 218 QRS: 26 QRSD: 89 T: 35 QT: 444 QTc: 447 Interpretive Statements SINUS RHYTHM WITH FIRST DEGREE AV BLOCK WITH FREQUENT VENTRICULAR PREMATURE COMPLEXES Compared to ECG 06/05/2024 18:47:52 Ventricular premature complex(es) now present Electronically Signed On 06-06-2024 14:45:02 CDT by Emanuel Ortiz M.D.
--- NOTE | 2024-06-06 03:35 | PC.NURSE ---
0310 Patient c/o chest pain 01/08. Patient stated pain started at 2:40am and was 4-5/10. EKG and VS obtained. Dr. Baker called and made aware. Stated he would enter orders.
[2024-06-06] MEDS: SIMETHICONE 80 MG TAB.CHEW PO ×4 (04:02→20:40)
[2024-06-06 04:52] LABS: Basophils Absolute Auto 0.1 K/mm3 (0.0-0.1); Basophils Percent Auto 0.8 % (0.2-1.2); Eosinophils Absolute Auto 0.3 K/mm3 (0-0.3); Eosinophils Percent Auto 3.8 % (0-4.4); Immature Granulocyte Absolute 0.02 K/mm3 (0.00-0.031); Immature Granulocyte Percent A 0.3 % (0-0.5); Lymphocytes Absolute Auto 3.01 K/mm3 (0.9-3.2); Lymphocytes Percent Auto 38.1 % (18.3-44.2); Mean Corpuscular HGB Conc 32.4 g/dl (32-36); Mean Corpuscular Hemoglobin 31.2 pg (26-34); Mean Corpuscular Volume 96.3 fl (80-100); Mean Platelet Volume 11.5 fl (7.4-10.4); Monocytes Absolute Auto 0.8 K/mm3 (0.1-0.6); Monocytes Percent Auto 10.6 % (2.6-8.5); Neutrophils Absolute Auto 3.7 K/mm3 (1.3-6.7); Neutrophils Percent Auto 46.4 % (45.5-73.1); Platelet Count Result 292 k/mm3 (150-375); Red Blood Count 3.53 M/mm3 (4.2-5.4); Red Cell Distribution Width 14.4 % (11.5-14.5); White Blood Count 7.9 K/mm3 (4.5-10.0)
[2024-06-06 05:06] LABS: Anion Gap 10 mmol/L (4-12); Blood Urea Nitrogen 17 mg/dL (7-17); Calcium 8.5 mg/dL (8.4-10.2); Carbon Dioxide 28 mmol/L (22-30); Chloride 98 mmol/L (98-107); Estimated CRCL calculation 44 ml/min; Estimated Glomerular Filt Rate > 60; Glucose 86 mg/dL (65-110); Potassium 3.9 mmol/L (3.4-5.0); Sodium 136 mmol/L (137-145)
--- NOTE | 2024-06-06 07:44 | PM.CNCAR ---
Assessment and Plan Assessment and plan (1) Paroxysmal atrial flutter: Code(s): I48.92 - Unspecified atrial flutter Status: Acute Assessment and Plan: Stable. On Eliquis and Amiodarone. No bradycardia, only ventricular bigeminy intermittently. (2) PVT (paroxysmal ventricular tachycardia): Code(s): I47.29 - Other ventricular tachycardia Status: Acute Assessment and Plan: Stable. On Amiodarone. (3) Dyslipidemia: Code(s): E78.5 - Hyperlipidemia, unspecified Status: Acute Assessment and Plan: On Pravastatin. (4) Valvular regurgitation: Code(s): I38 - Endocarditis, valve unspecified Status: Acute Assessment and Plan: Stable. (5) Diastolic CHF: Code(s): I50.30 - Unspecified diastolic (congestive) heart failure Status: Acute Assessment and Plan: Acute on chronic. Start Lasix 20 mg IV BID. Monitor fluid status and electrolytes. Limit fluid intake to 1.5 l/day. History of Present Illness History of Present Illness Consult date/time: 06/06/24 07:44 Reason For Visit: Chest Pain Narrative: 79 yr old woman who is my regular cardiology patient presents to ER with sob. She has a history of valvular heart disease with mod AI/MR/TR, diastolic dysfunction, paroxysmal atrial flutter, PVT. Reports she woke up last night with leg pain and noted heart was pounding and had sob. Leg pain and heart pounding resolved. Has cough. Reports she can walk 1-2 blocks and limited more by arthritis in her legs. Admits to waking up and daytime sleepiness. Denies sob, orthopnea, PND, edema. Cardiovascular Procedures Echo/MUGA:: 05/25/24 Echo: EF 65-70%, diastolic dysfunction (E/e' 10), mod biatrial enlargement, mild AI, mod MR, mod-severe TR, trace PI, RVSP 51 mmHg. 12/02/22 Echo: EF 60-65%, grade II diastolic dysfunction (E/e' 8), mod LAE, mild AI/TR/PI, mod MR. 01/21/22 Echo: EF 60-65%, mild biatrial enlargement, mild AI/PI, mild-mod MR, mod TR, RVSP 42 mmHg. 07/21/12 Echo at [place], [place]: EF >55%, grade I diastolic dysfunction, ASA, mod MR/TR, mild-mod AI, RVSP 40-50 mmHg. Electrophysiology:: 05/29/24 EKG: Sinus bradycardia at 55 bpm, first degree AV block, QTc 430 ms. 03/24/24 28 days event monitor: Sinus rhythm, HR range 50-138 bpm; average 78; 17% PAC, 167 episodes of atrial flutter with burden 1% with HR range 54-110 bpm and longest 25 minutes; 15% PVC, 2 VT with fastest 138 bpm and longest 15 beats. 04/27/23 EKG: Sinus rhythm. 01/06/22 EKG: Sinus bradycardia at 59 bpm. Stress Tests:: 05/25/24 Lexiscan myoview: Negative. 12/02/22 Lexiscan myoview: Negative. 07/22/12 Lexiscan myoview in [place], [place]: Negative. 09/27/23 MRI brain: Mod chronic small vessel ischemic changes. Review of Systems Review of Systems: All systems reviewed & are unremarkable except as noted in HPI and below Constitutional: Constitutional: Reports as per HPI, Denies chills, Reports fatigue and Denies fever(s) Cardiovascular: Cardiovascular: Reports as per HPI, Reports chest pain and Reports palpitations Respiratory: Respiratory: Reports as per HPI, Reports cough and Reports dyspnea Gastrointestinal: Gastrointestinal: Reports as per HPI and Denies abdominal pain Genitourinary: Genitourinary: Reports as per HPI and Denies dysuria Musculoskeletal: Musculoskeletal: Reports as per HPI Neurologic: Reports as per HPI, Reports dizziness and Denies syncope [facility] Past Medical History Medical History Ankylosing spondylitis Arthritis CAD (coronary artery disease) Cervical osteoarthritis Congestive heart failure with left ventricular diastolic dysfunction Degenerative arthritis of knee, bilateral Fibromyalgia Headache Headache History of heart attack History of hiatal hernia IBS (irritable bowel syndrome) Left shoulder pain Migraine Preoperative clearance Surgical History Surgical History (Reviewed 06/05/24 @ 15:03 by
[2024-06-06] MEDS: PRAVASTATIN SODIUM 10 MG TABLET PO (08:35)
[2024-06-06] MEDS: FUROSEMIDE INJ 40 MG/4 ML VIAL 20 MG IV PUSH ×2 (08:35→17:12)
[2024-06-06] MEDS: METOPROLOL SUCCINATE EXT REL 12.5 MG TABCR PO (08:35)
[2024-06-06] MEDS: AMIODARONE HCL 200 MG TABLET PO (08:35)
--- NOTE | 2024-06-06 11:36 | PM.IMPN ---
Progress Note: A&P Assessment and Plan (1) Congestive heart failure with left ventricular diastolic dysfunction: Code(s): I50.30 - Unspecified diastolic (congestive) heart failure Status: Acute Assessment and Plan: 06/06/24: Chest x-ray showing diffuse interstitial pattern in the lungs consistent with pulmonary edema Chest CTA was negative for PE, showed mild interstitial pulmonary edema Cardiology consulted Patient started on metoprolol and Lasix by Cardiology ProBNP 2270 Troponin was negative (2) Chest pain: Qualifiers: Chest pain type: unspecified Qualified Code(s): R07.9 - Chest pain, unspecified Code(s): R07.9 - Chest pain, unspecified Status: Acute Assessment and Plan: 06/06/24: See above (3) PVT (paroxysmal ventricular tachycardia): Code(s): I47.29 - Other ventricular tachycardia Status: Acute Assessment and Plan: 06/06/24: Heart rate registering 35 on monitor, however rate is irregular and not counting heart rate correctly. Likely around 70. Cardiology following. Previous echo reviewed from 05/25/2024 LV systolic function normal with an estimated EF of 65-70%, diastolic dysfunction, mild aortic valve sclerosis, mild aortic valve regurgitation, moderate to severe tricuspid valve regurgitation, moderate pulmonary hypertension with an estimated pulmonary artery systolic pressure of 51 mmHg Patient started on Lasix and metoprolol (4) Lightheadedness: Code(s): R42 - Dizziness and giddiness Status: Acute Assessment and Plan: 06/06/24: Continue fall precautions (5) CAD (coronary artery disease): Code(s): I25.10 - Atherosclerotic heart disease of [place] coronary artery without angina pectoris Status: Chronic Assessment and Plan: 06/06/24: Continue aspirin and pravastatin (6) Dyslipidemia: Code(s): E78.5 - Hyperlipidemia, unspecified Status: Chronic Assessment and Plan: See above Time Spent With Patient Time with patient: Greater than 35 minutes Subjective Date/time seen: 06/06/24 11:36 Interval history: Interval history: This is a 79-year-old female who presented to the hospital on 06/05/2024 with complaints of chest pain and dizziness. Patient states that she woke up and had palpitations in the middle of her chest and so she put on her pulse ox and it was reading that her heart rate was 33-40. Considering her symptoms she decided to come in for further evaluation. Workup in the hospital included a chest x-ray which showed diffuse interstitial pattern in the lungs consistent with mild pulmonary edema. Chest CTA was negative for PE and showed mild interstitial pulmonary edema. Initial labs shown a normal white blood cell count of 5.8, hemoglobin 10.3, sodium 136, troponin negative x2, proBNP 2270 1, lipase 58. Echo reviewed and showed a normal LV systolic function with an estimated EF of 65-70%, diastolic dysfunction, moderate biatrial enlargement, mild aortic insufficiency, moderate mitral valve regurgitation, moderate to severe tricuspid regurgitation. 06/06/24: Patient denies any fever, chills, nausea, vomiting, diarrhea, abdominal pain, chest pain, shortness a breath. She states she did have a bout of loose stool yesterday however that it has subsided. Labs and imaging reviewed. Review of Systems Review of Systems: All systems reviewed & are unremarkable except as noted in HPI and below Constitutional: Constitutional: Reports as per HPI and Reports no additional constitutional complaints Eyes: Eyes: Reports as per HPI and Reports no additional eye complaints ENT: Reports system reviewed and no additional complaints, except as documented and Reports as per HPI Cardiovascular: Cardiovascular: Reports as per HPI and Reports no additional cardiovascular complaints Respiratory: Respiratory: Reports as per HPI and Reports no additional respiratory complaints Gastrointestinal: Gastroint
[2024-06-07] VITALS: BP 108/33; PULSE 66; RESP 12; RESP 14; TEMP 36.8; O2SAT 98
[2024-06-07 04:00] VITALS: BP 101/43; PULSE 56; PULSE 74; RESP 14; TEMP 36.6; O2SAT 98
[2024-06-07 05:26] LABS: Magnesium 1.8 mg/dL (1.6-2.3)
[2024-06-07 05:27] LABS: Anion Gap 10 mmol/L (4-12); Blood Urea Nitrogen 22 mg/dL (7-17); Calcium 8.5 mg/dL (8.4-10.2); Carbon Dioxide 27 mmol/L (22-30); Chloride 98 mmol/L (98-107); Estimated CRCL calculation 36 ml/min; Estimated Glomerular Filt Rate 48; Glucose 98 mg/dL (65-110); Potassium 3.5 mmol/L (3.4-5.0); Sodium 135 mmol/L (137-145)
[2024-06-07 06:00] VITALS: PULSE 75
--- NOTE | 2024-06-07 07:23 | PM.PNCARD ---
Progress Note: A&P Assessment and Plan (1) Paroxysmal atrial flutter: Code(s): I48.92 - Unspecified atrial flutter Status: Acute Assessment and Plan: In sinus rhythm. Stable. On Eliquis and Amiodarone. No bradycardia, only ventricular bigeminy intermittently. (2) PVT (paroxysmal ventricular tachycardia): Code(s): I47.29 - Other ventricular tachycardia Status: Acute Assessment and Plan: Stable. On Amiodarone. (3) Dyslipidemia: Code(s): E78.5 - Hyperlipidemia, unspecified Status: Chronic Assessment and Plan: On Pravastatin. (4) Valvular regurgitation: Code(s): I38 - Endocarditis, valve unspecified Status: Acute Assessment and Plan: Stable. (5) Diastolic CHF: Code(s): I50.30 - Unspecified diastolic (congestive) heart failure Status: Acute Assessment and Plan: Acute on chronic. Start Lasix 20 mg IV BID. Monitor fluid status and electrolytes. Limit fluid intake to 1.5 l/day. Stop IV Lasix. Start Lasix 20 mg PO daily and KCl 10 meq daily. Have patient ambulate and if OK without dizziness may d/c home from cardiology standpoint and f/u with me in 1-2 weeks. Subjective Date/time seen: 06/07/24 07:23 Interval history: Has some dizziness but no sob or chest pains. Exam Const: General: cooperative, healthy appearing and comfortable Orientation/consciousness: oriented to person, oriented to place and oriented to time Resp: Auscultation: clear to auscultation bilaterally, no crackles, no rales, no rhonchi and no wheezes Cardio: Rate: regular rate Rhythm: regular rhythm Heart sounds: Murmur heart sound present (II/ diastolic murmur RICS) diastolic Peripheral pulses: dorsalis pedis present Neuro: General: oriented to person, oriented to place and oriented to time Extrem: Right lower extremity: no edema Left lower extremity: no edema Objective Data Vital Signs Vital Signs: Vital Signs - 24 hr 06/06/24 08:00 06/06/24 08:35 06/06/24 08:35 Temperature 98.0 F Pulse Rate 71 71 71 Respiratory Rate 20 Blood Pressure 119/40 L Pulse Oximetry 99 Oxygen Delivery 06/06/24 09:40 06/06/24 08:00 06/06/24 08:00 Temperature Pulse Rate 75 71 Respiratory Rate 20 Blood Pressure Pulse Oximetry 99 99 Oxygen Delivery Room Air Room Air 06/06/24 11:48 06/06/24 12:00 06/06/24 12:00 Temperature 98.3 F Pulse Rate 63 71 63 Respiratory Rate 16 16 Blood Pressure 104/88 Pulse Oximetry 100 100 Oxygen Delivery Room Air 06/06/24 14:00 06/06/24 10:00 06/06/24 15:57 Temperature 98.0 F Pulse Rate 59 L 69 63 Respiratory Rate 16 Blood Pressure 110/41 L Pulse Oximetry 98 Oxygen Delivery 06/06/24 16:00 06/06/24 16:00 06/06/24 18:00 Temperature Pulse Rate 63 63 100 Respiratory Rate 16 Blood Pressure Pulse Oximetry 98 Oxygen Delivery Room Air 06/06/24 20:00 06/06/24 20:00 06/06/24 20:00 Temperature 98.4 F Pulse Rate 63 63 66 Respiratory Rate 16 12 Blood Pressure 108/49 L Pulse Oximetry 98 98 Oxygen Delivery Room Air 06/06/24 22:00 06/07/24 00:00 06/07/24 00:00 Temperature Pulse Rate 66 66 66 Respiratory Rate 12 Blood Pressure Pulse Oximetry 98 Oxygen Delivery Room Air 06/07/24 00:00 06/07/24 04:00 06/07/24 04:00 Temperature 98.2 F 97.8 F Pulse Rate 66 56 L 74 Respiratory Rate 14 14 Blood Pressure 108/33 L 101/43 L Pulse Oximetry 98 98 Oxygen Delivery 06/07/24 04:00 06/07/24 06:00 Temperature Pulse Rate 75 Respiratory Rate Blood Pressure Pulse Oximetry Oxygen Delivery Room Air Intake/Output Intake/Output: Intake & Output 06/04/24 06/05/24 06/06/24 06/07/24 23:59 23:59 23:59 23:59 Intake Total 500 1000 Output Total 200 Balance 500 800 Meds/Results Medications: Active Medications Generic Name Dose Route Start Last Admin Trade Name Freq PRN Reason Stop Dose Admin Ami
[2024-06-07 07:24] VITALS: BP 111/40; PULSE 70; RESP 16; O2SAT 99
[2024-06-07 07:47] LABS: Basophils Absolute Auto 0.1 K/mm3 (0.0-0.1); Eosinophils Absolute Auto 0.3 K/mm3 (0-0.3); Eosinophils Percent Auto 2.9 % (0-4.4); Hematocrit 34.5 % (37.0-47.0); Hemoglobin 11.2 g/dL (12.0-15.0); Immature Granulocyte Absolute 0.02 K/mm3 (0.00-0.031); Immature Granulocyte Percent A 0.2 % (0-0.5); Lymphocytes Absolute Auto 3.78 K/mm3 (0.9-3.2); Lymphocytes Percent Auto 42.3 % (18.3-44.2); Mean Corpuscular HGB Conc 32.5 g/dl (32-36); Mean Corpuscular Hemoglobin 31.2 pg (26-34); Mean Corpuscular Volume 96.1 fl (80-100); Mean Platelet Volume 11.8 fl (7.4-10.4); Monocytes Percent Auto 11.6 % (2.6-8.5); Neutrophils Absolute Auto 3.7 K/mm3 (1.3-6.7); Platelet Count Result 320 k/mm3 (150-375); Red Blood Count 3.59 M/mm3 (4.2-5.4); Red Cell Distribution Width 14.4 % (11.5-14.5); White Blood Count 8.9 K/mm3 (4.5-10.0)
[2024-06-07 09:17] VITALS: PULSE 74
[2024-06-07] MEDS: AMIODARONE HCL 200 MG TABLET PO (09:17)
[2024-06-07] MEDS: SUCRALFATE 1 GM TABLET BY MOUTH (09:17)
[2024-06-07] MEDS: AMITRIPTYLINE HCL 25 MG TABLET PO (09:18)
[2024-06-07] MEDS: BACLOFEN 5 MG TABLET PO (09:19)
[2024-06-07] MEDS: CHOLECALCIFEROL 1,000 UNITS TABLET 2000 UNITS PO (09:19)
[2024-06-07] MEDS: APIXABAN 5 MG TABLET PO (09:19)
[2024-06-07 09:20] VITALS: PULSE 72
[2024-06-07] MEDS: MULTIVITAMINS THERAPEUTIC TAB (*BKC) 1 TABLET PO (09:20)
[2024-06-07] MEDS: PRAVASTATIN SODIUM 10 MG TABLET PO (09:20)
[2024-06-07] MEDS: FUROSEMIDE 20 MG TABLET PO (09:20)
[2024-06-07] MEDS: FAMOTIDINE 20 MG TABLET PO (09:20)
[2024-06-07] MEDS: METOPROLOL SUCCINATE EXT REL 25 MG TABCR PO (09:20)
[2024-06-07] MEDS: estradioL 1 MG TABLET PO (09:21)
[2024-06-07] MEDS: POTASSIUM CHLORIDE 10 MEQ ER TABLET PO (09:21)
[2024-06-07] MEDS: valACYclovir HCL 500 MG TABLET PO (09:21)
[2024-06-07] MEDS: SIMETHICONE 80 MG TAB.CHEW PO (09:21)
--- NOTE | 2024-06-07 11:43 | PM.DS ---
DS: Admitting Diagnosis Discharge Date 06/07/24 Admitting Diagnosis Chest pain Lightheadedness DVT Diastolic dysfunction Paroxysmal atrial flutter Congestive heart failure with left ventricular diastolic dysfunction Coronary artery disease Dyslipidemia DS: Discharge Diagnosis Discharge Diagnosis (1) Congestive heart failure with left ventricular diastolic dysfunction: Code(s): I50.30 - Unspecified diastolic (congestive) heart failure Status: Acute (2) Chest pain: Qualifiers: Chest pain type: unspecified Qualified Code(s): R07.9 - Chest pain, unspecified Code(s): R07.9 - Chest pain, unspecified Status: Acute (3) PVT (paroxysmal ventricular tachycardia): Code(s): I47.29 - Other ventricular tachycardia Status: Acute (4) Lightheadedness: Code(s): R42 - Dizziness and giddiness Status: Acute (5) CAD (coronary artery disease): Code(s): I25.10 - Atherosclerotic heart disease of [place] coronary artery without angina pectoris Status: Chronic (6) Dyslipidemia: Code(s): E78.5 - Hyperlipidemia, unspecified Status: Chronic DS: Summary Hospital Course Reason for hospitalization: Chest pain Lightheadedness DVT Diastolic dysfunction Paroxysmal atrial flutter Congestive heart failure with left ventricular diastolic dysfunction Coronary artery disease Dyslipidemia Hospital Course: This is a 79-year-old female who presented to the hospital on 06/05/2024 with complaints of chest pain and dizziness. Patient states that she woke up and had palpitations in the middle of her chest and so she put on her pulse ox and it was reading that her heart rate was 33-40. Considering her symptoms she decided to come in for further evaluation. Workup in the hospital included a chest x-ray which showed diffuse interstitial pattern in the lungs consistent with mild pulmonary edema. Chest CTA was negative for PE and showed mild interstitial pulmonary edema. Initial labs shown a normal white blood cell count of 5.8, hemoglobin 10.3, sodium 136, troponin negative x2, proBNP 2270 1, lipase 58. Echo reviewed and showed a normal LV systolic function with an estimated EF of 65-70%, diastolic dysfunction, moderate biatrial enlargement, mild aortic insufficiency, moderate mitral valve regurgitation, moderate to severe tricuspid regurgitation. Patient reported some dizziness this morning however she stopped taking her amitriptyline abruptly and her dizziness is likely due to this. Patient is stable for discharge at this time. She will need to follow up with Cardiology in 2-3 weeks. She will continue with Lasix 20 mg daily. Final diagnosis: Congestive heart failure with left ventricular diastolic dysfunction Status at Discharge Cognitive/behavioral status at discharge: Alert and oriented x3 Functional status at discharge: independent ambulation Overall status at discharge: patient is progressing back to baseline Time Spent with Patient Time attestation: Total time spent providing and/or coordinating discharge services: Time spent: Greater than 30 minutes Exam Narrative: General: In no acute distress, well nourished Cardiac: Normal S1 and S2. No murmur, gallops or friction rubs, peripheral pulses intact. Respiratory: Lungs clear to auscultation, no adventitious lung sounds, currently on room air Gastrointestinal: soft, non-distended, non-tender, normoactive bowel sounds. : voiding without difficulty. Neuro: Alert and oriented x4 DS: Data Data Completed and Pending Completed studies during hospitalization: Chest x-ray Chest CTA Pending studies at discharge: None Labs on day of discharge: Labs from last 24 hours 06/07/24 04:49 WBC 8.9 RBC 3.59 L Hgb 11.2 L Hct 34.5 L MCV 96.1 MCH 31.2 MCHC 32.5 RDW 14.4 Plt Count 320 MPV 11.8 H Immature Gran % (Auto) 0.2 Neut % (Auto) 42.0 L Lymph % (Auto) 42.3 [place] % (Auto) 11.6 H Eos % (Auto)
== END 2024-06-07 12:10 | disposition home or self-care (01) ==
LOC: ANHED 15:09 → ANHIMU 21:46
PROVIDERS: Emergency Medicine; Internal Medicine; Internal Medicine Cardiovascular Disease; Admitting Provider Internal Medicine; Emergency Provider Preventive Medicine Aerospace Medicine; PCP Family Medicine; Visit Provider Nurse Practitioner Acute Care
DX: I50.30 Unspecified diastolic (congestive) heart failure (principal); I48.92 Unspecified atrial flutter; I47.29 Other ventricular tachycardia; I38 Endocarditis, valve unspecified; I27.20 Pulmonary hypertension, unspecified; I25.10 Atherosclerotic heart disease of native coronary artery without angina pectoris; E78.5 Hyperlipidemia, unspecified; I25.2 Old myocardial infarction; M79.7 Fibromyalgia; Z79.01 Long term (current) use of anticoagulants
CPT/HCPCS: 36415; 71046; 71275; 80048; 80053; 83690; 83735; 83880; 84484; 85025; 85610; 85730; 93005; 96361; 96374; 96376; 99285; A9270; G0378; J1940; J7040; Q9967

== ENCOUNTER 2024-06-21 12:30 | Outpatient (RCR) | payer MEDICARE, SELFPAY ==
--- NOTE | 2024-03-24 15:16 | PTOPEVAL1 ---
Assessment and note entered by Raymond Meredith SPT Evaluation Information Assessment Status Evaluation Diagnosis Cervicalgia (Neck Pain) Therapy Conditions abnormal posture weakness cervical radiculopathy stiffness of the cervical spine Onset 2009 Subjective Information Pt states she has had a neck pain for several years and was previously in physical therapy for neck pain with headaches. The physical therapy helped and the headaches resolved but now the headaches have started to come back but less intense and less frequent. The neck pain has gotten worse and the pt states MD said she has Ankylosing spondylitis. The neck pain has continued and numbness and tingling has developed down the arm and into the pinky, ring and middle fingers. Pt states neck pain effects her dressing and is limited by what she can do around the house do to neck pain. Reported Pain Level Pain Score 2: Self Report Assessment PT Clinical Summary Pt reports to physical therapy with a history of chronic cervical pain and headaches. The pt was seen in physical therapy previously with success in diminishing headaches and lessening neck pain. The pt reports a primary concern is reoccurrence of headaches but they are at a less intensity as previously, but pt fears they will get worse. Pt notes neck pain and radiating pain / tingling in L UE in ulnar distribution pattern. Upon examination deficits were found in cervical ROM in all planes, with rotation and side bending causing pain NOMAN. Pt displayed hand intrinsic weakness and notes having difficulties performing ADLs involving peer educator strength. Upon palpation pt presents with muscle guarding and trigger points throughout suboccipital, cervical and scapular muscles. Pt has cervical joint mobility deficits with pain provocation with AROM. Pt will benefit from skilled physical therapy to address ROM deficts in cervical spine, manage pain and improve posture and alignment. Supervised by Milana Fofana PT DPT Plan of Care Interventions Electrical Stimulation,Hot Pack/Cold Pack,Manual Therapy,Neuro Re-education,Patient/Caregiver Educati,Therapeutic Activities,Therapeutic Exercise,Self-Care/Home Management,Ultrasound, Other PT Services Indicated Yes Treatment Freq
--- NOTE | 2024-03-24 15:29 | OPREHPOC ---
Outpatient Therapy Plan of Care This is a Multidisciplinary Plan of Care that may contain components documented by all disciplines (PT, OT, and ST.) PT Problem 1 PT Problem #1 Knowledge Deficit PT Goal 1 Goal Pt will display independence with HEP Target Visit 2 PT Problem 2 PT Problem #2 Impaired Flexibility PT Goal 1 Goal pt will display visual changes in sitting and standing posture displaying decreased muscle shortening of anterior chest / shoulders and scapular strengthening Target Visit 5 PT Problem 3 PT Problem #3 Pain PT Goal 1 Goal self reported pain scale will be 5 or less at all times Target Visit 6 PT Goal 2 Goal pt self reported pain level of 2 or less in cervical spine at all times Target Visit 12 PT Problem 4 PT Problem #4 Impaired Range of Motion PT Goal 1 Goal Cervical ROM will improve by 25% in all planes Target Visit 6 PT Goal 2 Goal cervical ROM improved by 50% in all planes Target Visit 12
--- NOTE | 2024-03-28 17:09 | PCPTNOTE ---
Patient called & cancelled scheduled appointment this date due.
--- NOTE | 2024-04-11 08:25 | PCPTNOTE ---
Patient did not show up for scheduled appointment 04/10/2024.
--- NOTE | 2024-05-10 10:07 | PTOPPROG ---
Assessment and note entered by Milana Fofana, PT Evaluation Information Assessment Status Progress Diagnosis Cervicalgia (Neck Pain) ICD-10 Condition Codes (PT) M54.13 Other ICD-10 Condition Codes ( Abnormal posture R29.3 PT) Onset 2009 Subjective Information Pt states has some numbness and tingling in the left arm and a little in the neck depending on what I'm doing . States tingling is mainly in the hands and now than will go from shoulder to hands but rarely. In the hands it is mostly in the pinky , but ring and middle also has tingling. Feels like the tingling is a little less often than it used to be but if aggravates it and does a lot this increases. 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 Had a nerve study performed. Reports MD states is a lot from the neck, questionable from carpal tunnel at this time but definitely some from the neck. Pt states knowing what to do when has flare ups helps. Works on keeping her back straight. Her current recliner seems like it pushes her head forward. Pt states her head aches were completely gone for a while, now gets them every now and then and only in one place at a time, like a normal person . Self-percieived improvement: 15% Assessment PT Clinical Summary Pt has attended therapy consistently for her neck pain and headaches. She reports she does not perform her exercises as she should however notes she is more conscious of her postures and tries to maintain upright postures. She does show improved ROM of the cervical spine, and worst pain rating has dropped from a 9/10 to 6/10. She cont to have N/T into LUE but as her prior medical history regarding her neck surgery is unknown, she is not a candidate for mechanical traction until imaging can show presence of lack there of cervical fusion . Will cont therapy with mild mobilizations, manual cervical distraction, along with postural bolivar and exercises to continue improvement and meet max benefit of therapy to improve function with less d
--- NOTE | 2024-06-05 13:10 | PCPTNOTE ---
Pt called 30 minutes before appointment to state she was in the hospital and couldn't make it to therapy. Will cont POC as able pending hospitalization
--- NOTE | 2024-06-15 15:07 | PTOPPROG ---
Assessment and note entered by Milana Fofana, PT Evaluation Information Assessment Status Progress Diagnosis Cervicalgia (Neck Pain) ICD-10 Condition Codes (PT) M54.13 Other ICD-10 Condition Codes ( Abnormal posture R29.3 PT) Onset 2009 Subjective Information Pt states she went to the hospital last week due to waking up with dizziness and chest pain. Went to hospital, notes there were no heart issues . Went through a lot of tests and found out one of her medications had been out for multiple days. When she restarted this medication dizziness really improved. Reports was in ER for 11 hours in the horrible beds . Pt states this was bothersome to her neck and back. Neurology referral shows history of Anterior discectomy and fusion c4-c7 Has baclofen and something derived from elevil Assessment PT Clinical Summary Pt has attended therapy consistently for her neck pain and headaches. Reassessment performed today due to change in status after hospitalization last week. Cont to demo abnormal postures, decreased thoracic and cervical ROM, abnormal resting muscle tone. Demo's overall improvement and notes from neurology clarified prior surgical history of cervical spine as anterior cervical discectomy and fusion. Pt will benefit from continued therapy to improve deficits and continue improving neck pain and headaches as she has been progressing well with these. Plan of Care Interventions Electrical Stimulation,Hot Pack/Cold Pack,Manual Therapy,Neuro Re-education,Patient/Caregiver Educati,Therapeutic Activities,Therapeutic Exercise,Self-Care/Home Management,Ultrasound, Other PT Services Indicated Yes Treatment Frequency and 2x weekly x 10 visits Duration These treatments will address the objective and functional deficits as defined above. The patient will be advanced safely and appropriately in order for the patient to progress towards his/her prior level of function. Additional exercises will be introduced and as well as a comprehensive home exercise program upon discharge, if needed, ?to ensure carryover of functional gains achieved in the c
--- NOTE | 2024-06-26 16:09 | PCPTNOTE ---
This treatment is being continued on visit number [id number] Please see documentation on both accounts to view progress. Completed interventions, outcomes, and problems have been marked as Inactive to facilitate the copying of the Care plan routine for recurring accounts.
== END 2024-06-22 23:59 | disposition home or self-care (01) ==
LOC: ANHHIPT 12:30
PROVIDERS: PCP Family Medicine
DX: M54.2 Cervicalgia (principal)
CPT/HCPCS: 97014; 97110; 97112; 97140; 97162; 97530; 97750; G0283

== ENCOUNTER 2024-08-17 15:00 | Outpatient (RCR) | payer MEDICARE, SELFPAY ==
--- NOTE | 2024-06-26 16:11 | PCPTNOTE ---
The treatment documented on this account is a continuation of the treatment documented on visit number [id number]. Please see documentation on both accounts to view progress. The Plan of Care has been transitioned and updated within the new V#. I have addressed and agree with the discipline specific Problems, Interventions, and Goals for the current certification period. Completed interventions, outcomes, and problems have been marked as Inactive to facilitate the copying of the Care plan routine for recurring accounts.
--- NOTE | 2024-07-24 12:40 | PCPTNOTE ---
Patient called & cancelled scheduled appointment this date due to illness
--- NOTE | 2024-08-17 16:32 | PTOPDC ---
Assessment and note entered by Milana Fofana, PT Evaluation Information Assessment Status Discharge Diagnosis Cervicalgia (Neck Pain) ICD-10 Condition Codes (PT) M54.13 Other ICD-10 Condition Codes ( Abnormal posture R29.3 PT) Onset 2009 Subjective Information Pt reports cont to have tingling in the pinky, ring, and middle finger. Reports has been some increase in headaches and a little neck pain at night but is able to work it out with her shoulder squeezes and chin tucks. Reports has been working on keeping her posture correct. Reports back will hurt and gets tight with mopping , ad with too much bending one way or another. Pt reports is able to do things at home then lay down and rest and this allows her to continue her work. States she gets about 20 minutes doing her work and 15 of rest Self-perceived improvement: 65-70% improved. Reported Pain Level Pain Score 3: Self Report Assessment PT Clinical Summary Pt has been without therapy for multiple weeks due to family functions and being out of town. Upon returning she reports what appears to be only mild increases in discomfort which she reports she is able to manage wiht ice and her exercises. Her ROM cervical spine remains unchanged, her thoracic ROM is greatly increased, and she demo's improved postures upon sitting. She appears to have met max benefit of therapy at this time. Thus patient is being discharged from therapy for completion of program. Plan of Care PT Services Indicated No
== END 2024-08-23 11:13 | disposition home or self-care (01) ==
LOC: ANHHIPT 15:00
PROVIDERS: PCP Family Medicine
DX: M54.2 Cervicalgia (principal); M54.12 Radiculopathy, cervical region
CPT/HCPCS: 97014; 97110; 97112; 97140; 97530; 97750; G0283

== ENCOUNTER 2024-10-10 14:19 | Outpatient (CLI) | payer MEDICARE, SELFPAY ==
--- NOTE | ~2024-10-10 | CT_ITS ---
CT Scan of the Neck and Chest without Contrast: Clinical Indication: Cough Technique: Contiguous sections were acquired throughout the neck and chest without intravenous contra st. Dose reduction technique was used on this scan by utilizing automated exposure control and iterat jose e reconstruction technique. The dose-length product (DLP) was 505.88 mGy-cm. COMPARISON: 06/05/2024 Findings: No lymphadenopathy identified in the neck. No other mass lesion or fluid collection evident in the neck. Parapharyngeal fat preserved. Parotid and submandibular glands are unremarkable. Visualized aerodigestive tract unremarkable. Thyroid gland unremarkable. Paranasal sinuses are clear. Visualized orbits grossly unremarkable. There is no evidence of any significant mediastinal, hilar or axillary lymphadenopathy. Probable card iomegaly. No aortic aneurysm. There is no evidence of pleural or pericardial effusion. There is extensive subpleural reticulation with mild, predominantly peripheral, interstitial thickeni ng in the lungs. There are minimal groundglass opacities. Images through the upper abdomen reveal small hiatal hernia. Impression: Pulmonary findings compatible with mild chronic interstitial disease and/or possibly mild interstitia l edema. Correlate clinically. Reviewed, dictated and finalized at location . [facility] Impression: Pulmonary findings compatible with mild chronic interstitial disease and/or pos sibly mild interstitial edema. Correlate clinically.
== END 2024-10-10 14:20 | disposition home or self-care (01) ==
LOC: ANHIMG 14:22
PROVIDERS: PCP Nurse Practitioner Family; Visit Provider Physician Assistant
DX: R05.9 Cough, unspecified (principal); R13.10 Dysphagia, unspecified; R49.0 Dysphonia; J84.9 Interstitial pulmonary disease, unspecified
CPT/HCPCS: 70490; 71250

== ENCOUNTER 2024-10-18 01:41 | Day surgery (SDC) | payer MEDICARE, SELFPAY ==
[2024-10-12 14:58] VITALS: BMI 24.7
--- NOTE | 2024-10-12 15:33 | PC.NURSE ---
Spoke with _PATIENT_ regarding medication ELIQUIS. PATIENT verbalizes understanding that the last dose is to be taken on 10/14/2024 and the Endoscopist will instruct them when to restart after the procedure.
[2024-10-18 06:47] VITALS: BP 132/60; PULSE 66; RESP 16; TEMP 36.4; O2SAT 100
[2024-10-18 06:48] VITALS: BMI 25.2
--- NOTE | 2024-10-18 07:02 | P.PNAN_ITS ---
Anes - Initial Pre Proc Eval Procedure: Operation Date: 10/18/24 08:00 Proposed Procedures p Esophagogastroduodenoscopy & Colonoscopy - Rolf You MD Date/Time: 10/18/24 07:02 Surgeon: Rolf You MD Pre Op Diagnosis: Anemia/ Dysphagia Patient Data Age: 79 Gender: F Height: 1.7 m Weight: 73 kg Last Vital Signs Temp 36.4 C 10/18/24 06:47 Pulse 66 10/18/24 06:47 Resp 16 10/18/24 06:47 BP 132/60 10/18/24 06:47 Pulse Ox 100 10/18/24 06:47 O2 Del Method Room Air 10/18/24 06:47 Allergies Allergy/AdvReac Type Severity Reaction Status Date / Time Opioids - Morphine Analogues Allergy Severe Swelling Verified 10/18/24 06:44 tramadol (From Ultracet) AdvReac Severe Itching Verified 10/18/24 06:44 ubrogepant (From Ubrelvy) AdvReac Severe Headache Verified 10/18/24 06:44 atogepant (From Qulipta) AdvReac Intermediate Headache Verified 10/18/24 06:44 Home Medications ?Medication ?Instructions ?Recorded ?Confirmed ?Type valacyclovir 500 mg tablet 500 mg PO BID 10/07/22 10/18/24 History cholecalciferol (vitamin D3) 50 50 mcg PO DAILY 04/06/23 10/12/24 History mcg (2,000 unit) capsule multivitamin 1 tablet PO DAILY 04/06/23 10/18/24 History baclofen 10 mg tablet 5 mg PO DAILY PRN LEG CRAMPS 04/10/24 10/12/24 History pantoprazole 40 mg tablet,delayed See Rx Instructions .Route 05/22/24 10/18/24 Rx release .COMPLEX #180 tabs amiodarone 200 mg tablet 200 mg PO DAILY #90 tabs 07/10/24 10/18/24 Rx amitriptyline 10 mg tablet 10 mg PO QHS #90 tabs 07/10/24 10/18/24 Rx apixaban 5 mg tablet (Eliquis) 5 mg PO BID #180 tabs 07/10/24 10/18/24 Rx furosemide 20 mg tablet 20 mg PO DAILY #90 tabs 07/10/24 10/18/24 Rx metoprolol succinate 25 mg 25 mg PO DAILY #180 tabs 07/10/24 10/18/24 Rx tablet,extended release 24 hr estradiol 1 mg tablet 1 mg PO DAILY #30 tabs 08/03/24 10/18/24 Rx benzonatate 100 mg capsule 100 mg PO TID PRN cough #30 caps 09/14/24 10/12/24 Rx budesonide-formoterol HFA 160 2 puff inhalation Q12H #10.2 grams 09/26/24 Rx mcg-4.5 mcg/actuation aerosol inhaler (Symbicort) albuterol sulfate 90 mcg/actuation 2 inh inhalation Q4H PRN shortness 10/02/24 10/12/24 Rx aerosol inhaler of breath or wheezing #8.5 grams pravastatin 10 mg tablet 10 mg PO DAILY #90 tabs 10/02/24 10/18/24 Rx Patient hx anesthesia problems: none Family hx anesthesia problems: none Results Review: All pre-operative results and documents have been reviewed as part of the pre- operative evaluation. [facility] Past Medical History Medical History Preoperative clearance CAD (coronary artery disease) Fibromyalgia Ankylosing spondylitis Cervical osteoarthritis Headache Migraine Congestive heart failure with left ventricular diastolic dysfunction Left shoulder pain Degenerative arthritis of knee, bilateral History of hiatal hernia IBS (irritable bowel syndrome) History of heart attack Headache Arthritis Surgical History Surgical History H/O colonoscopy with polypectomy 01/21/23 Dr. Mark History of rotator cuff surgery History of cataract surgery History of neck surgery History of foot surgery History of hand surgery History of axillary surgery History of tonsillectomy and adenoidectomy Family History Family History Mother Kidney malignancy Father Prostate carcinoma Social History Social History Social History: 08/16/24 very confident with medical forms Years smoked: 20 Smoking status: Former smoker Alcohol intake: current Substance use: never Substance use type: does not use Do You Feel Safe in your Home?: Yes Lack of Transportation: No Lack of Food: Never True Current Housing: I Have Housing Concerned About Future Housing: No Difficulty Paying Gas/Electric Bills: No Difficulty Paying for Meds: No Currently Unemployed: No Education: High School Diploma/GED Difficulty w/ Childcare or Family Care: No Living arrangements: with family Occupation/Education: retired Gender identity (if verbalized by the patient): Female Sexual Orientation (if Verbalized by the Patient): Straight or Heterosexual Spiritual care concerns: No Anes - Eval Final PreProcedure Day of Procedure 10/18/24 07:02 Patient weight: overweight Heart: irregular rhythm (history of a-fib) Lungs: clear to auscultation Airway: Mallampati scale class II Neurological: alert and oriented Last oral intake: >/= 8 hours ASA classification: III Emergent: no Anesthetic plan: proceed Anesthesia type and monitoring: general GIVS and standard monitoring Results Review: All pre-operative results and documents have been reviewed as part of the pre- operative evaluation. Patient states she has been off of Eliquis for 4 days. Informed Consent: The patient's anesthetic plan and its attendant risks and benefits were discussed with the patient/family/POA. Questions were solicited and answers provided to the satisfaction of the patient/family/POA.
[2024-10-18] MEDS: LACTATED RINGERS 1,000 ML 150 ML IV CONT (07:03)
--- NOTE | 2024-10-18 07:52 | PM.IMHP ---
H&P: HPI History of Present Illness Date/Time: 10/18/24 07:52 Chief Complaint: Heartburn- history of colon polyps Narrative: the patient has a history of Zhao fundoplication in 2005. Shortly after she started experiencing heartburn episodes again, to the point that she currently requires daily Nexium and occasional sucralfate. She complained of cough and a discomfort in the back of her throat. She does complain of mild occasional dysphagia to solids and liquids. In addition, a colonoscopy was attempted last year by another provider and the colon was found to be tortuous and could not reach the cecum. She has a history of colon polyps. she denies rectal bleeding, change in bowel habits, or abdominal pain. Review of Systems Review of Systems: All systems reviewed & are unremarkable except as noted in HPI and below PMFSH Past Medical History Medical History Preoperative clearance CAD (coronary artery disease) Fibromyalgia Ankylosing spondylitis Cervical osteoarthritis Headache Migraine Congestive heart failure with left ventricular diastolic dysfunction Left shoulder pain Degenerative arthritis of knee, bilateral History of hiatal hernia IBS (irritable bowel syndrome) History of heart attack Headache Arthritis Surgical History Surgical History H/O colonoscopy with polypectomy 01/21/23 Dr. Mark History of rotator cuff surgery History of cataract surgery History of neck surgery History of foot surgery History of hand surgery History of axillary surgery History of tonsillectomy and adenoidectomy Family History Family History Mother Kidney malignancy Father Prostate carcinoma Social History Social History Social History: 08/16/24 very confident with medical forms Years smoked: 20 Smoking status: Former smoker Alcohol intake: current Substance use: never Substance use type: does not use Do You Feel Safe in your Home?: Yes Lack of Transportation: No Lack of Food: Never True Current Housing: I Have Housing Concerned About Future Housing: No Difficulty Paying Gas/Electric Bills: No Difficulty Paying for Meds: No Currently Unemployed: No Education: High School Diploma/GED Difficulty w/ Childcare or Family Care: No Living arrangements: with family Occupation/Education: retired Gender identity (if verbalized by the patient): Female Sexual Orientation (if Verbalized by the Patient): Straight or Heterosexual Spiritual care concerns: No Meds Home Medications and Allergies Home Medications ?Medication ?Instructions ?Recorded ?Confirmed ?Type valacyclovir 500 mg tablet 500 mg PO BID 10/07/22 10/18/24 History cholecalciferol (vitamin D3) 50 50 mcg PO DAILY 04/06/23 10/12/24 History mcg (2,000 unit) capsule multivitamin 1 tablet PO DAILY 04/06/23 10/18/24 History baclofen 10 mg tablet 5 mg PO DAILY PRN LEG CRAMPS 04/10/24 10/12/24 History pantoprazole 40 mg tablet,delayed See Rx Instructions .Route 05/22/24 10/18/24 Rx release .COMPLEX #180 tabs amiodarone 200 mg tablet 200 mg PO DAILY #90 tabs 07/10/24 10/18/24 Rx amitriptyline 10 mg tablet 10 mg PO QHS #90 tabs 07/10/24 10/18/24 Rx apixaban 5 mg tablet (Eliquis) 5 mg PO BID #180 tabs 07/10/24 10/18/24 Rx furosemide 20 mg tablet 20 mg PO DAILY #90 tabs 07/10/24 10/18/24 Rx metoprolol succinate 25 mg 25 mg PO DAILY #180 tabs 07/10/24 10/18/24 Rx tablet,extended release 24 hr estradiol 1 mg tablet 1 mg PO DAILY #30 tabs 08/03/24 10/18/24 Rx benzonatate 100 mg capsule 100 mg PO TID PRN cough #30 caps 09/14/24 10/12/24 Rx budesonide-formoterol HFA 160 2 puff inhalation Q12H #10.2 grams 09/26/24 10/18/24 Rx mcg-4.5 mcg/actuation aerosol inhaler (Symbicort) albuterol sulfate 90 mcg/actuation 2 inh inhalation Q4H PRN shortness 10/02/24 10/12/24 Rx aerosol inhaler of breath or wheezing #8.5 grams pravastatin 10 mg tablet 10 mg PO DAILY #90 tabs 10/02/24 10/18/24 Rx Allergies Allergy/AdvReac Type Severity Reaction Status Date / Time Opioids - Morphine Analogues Allergy Severe Swelling Verified 10/18/24 06:44 tramadol (From Ultracet) AdvReac Severe Itching Verified 10/18/24 06:44 ubrogepant (From Ubrelvy) AdvReac Severe Headache Verified 10/18/24 06:44 atogepant (From Qulipta) AdvReac Intermediate Headache Verified 10/18/24 06:44 Vital Signs Vital Signs - 24 hr 10/18/24 06:47 Temperature 97.6 F Pulse Rate 66 Respiratory Rate 16 Blood Pressure 132/60 Pulse Oximetry 100 Oxygen Delivery Room Air Exam Const: General: cooperative and healthy appearing Resp: Effort & Inspection: normal respiratory effort and able to speak in complete sentences Auscultation: clear to auscultation bilaterally Cardio: Rate: regular rate Rhythm: regular rhythm GI: Inspection: normal to inspection GI Palp: No No hepatosplenomegaly present Auscultation: normal bowel sounds Rectal Exam: deferred Skin: General skin exam: normal color Psych: Appearance: grossly normal Mental Status: mental status grossly normal Assessment and Plan Assessment and plan (1) GERD (gastroesophageal reflux disease): Qualifiers: Esophagitis presence: without esophagitis Qualified Code(s): K21.9 - Gastro-esophageal reflux disease without esophagitis Code(s): K21.9 - Gastro-esophageal reflux disease without esophagitis Status: Acute Assessment and Plan: Differential diagnosis of recurrence of heartburn in a patient with a history of Zhao fundoplication includes surgery failure versus motility disturbances secondary to vagotomy during fundoplication. Achalasia type motility patterns can occur after fundoplication. If endoscopy does not reveal clearly obstructive lesions or esophagitis, and esophageal manometry might be indicated. The patient is deemed a good candidate for the procedures. Consent signed. Will proceed. (2) Constipation: Qualifiers: Constipation type: other constipation type Qualified Code(s): K59.09 - Other constipation Code(s): K59.00 - Constipation, unspecified Status: Acute
--- NOTE | 2024-10-18 08:20 | SUR.OPER ---
EGD [id number]. Colonoscopy start time 08.
[2024-10-18 09:03] VITALS: BP 109/53; PULSE 61; RESP 18; O2SAT 100
[2024-10-18 09:13] VITALS: BP 116/45; PULSE 62; RESP 22; O2SAT 100
[2024-10-18 09:23] VITALS: BP 108/62; PULSE 60; RESP 23; O2SAT 100
== END 2024-10-18 09:42 | disposition home or self-care (01) ==
PROVIDERS: PCP Nurse Practitioner Family; Referring Provider Nurse Practitioner Family; Visit Provider Internal Medicine Gastroenterology
PROC: 0DJ08ZZ Inspection of Upper Intestinal Tract, Via Natural or Artificial Opening Endoscopic (ICD-10-PCS; CPT 43235; principal; 2024-10-18 08:00)
DX: K59.00 Constipation, unspecified (principal); D12.3 Benign neoplasm of transverse colon; K64.8 Other hemorrhoids; K21.00 Gastro-esophageal reflux disease with esophagitis, without bleeding; K29.30 Chronic superficial gastritis without bleeding; K44.9 Diaphragmatic hernia without obstruction or gangrene; Z87.891 Personal history of nicotine dependence
CPT/HCPCS: 45381; 45380; 43239; 88305; A9270; J2371; J2704; J7120

== ENCOUNTER 2024-11-28 09:53 | Outpatient (CLI) | payer MEDICARE, SELFPAY ==
--- OUTSIDE RECORDS SUMMARY | 2024-11-28 10:48 | XMS_ITS | Clinical Summary ---
Author Organization [facility] Address [address] [place] [address] Care Team Providers Care School Age Program Teacher Name Role Phone Fei Esquivel MD Primary Care Provider [phone] Allergies Active Allergy Reactions Criticality Noted Date Comments Morphine Swelling,Hives,Itchi ng,Other (See comments) High 04/19/2021 Medications sucralfate (CARAFATE) 1 gram tablet Take 1 tablet (1 g total) by mouth 3 (three) times a day [address] (PROTONIX) 40 mg EC tablet Take 1 tablet (40 mg total) by mouth 2 (two) times a day 2 Active estradioL (ESTRACE) 1 mg tablet TAKE 1 & 1/2 TABLETS BY MOUTH EVERY DAY 2 Active ergocalciferol (VITAMIN D) 50,000 unit capsule 1 Active amoxicillin (AMOXIL) 875 mg tablet Take 1 tablet (875 mg total) by mouth every 12 (twelve) hours 3 Active amoxicillin-cla vulanate (AUGMENTIN) 875-125 mg per tablet Take 1 tablet by mouth 2 (two) times a day 3 Active guaiFENesin-cod eine (GUAITUSS AC) liquid 100-10 mg/5 mL TAKE 1-2 TEASPOONFUL BY MOUTH EVERY 6 HOURS NEEDED FOR COUGH 3 Active famotidine (PEPCID) 20 mg tablet Take 1 tablet (20 mg total) by mouth 2 (two) times a day 3 Active pravastatin (PRAVACHOL) 10 mg tablet Take 1 tablet (10 mg total) by mouth daily 3 Active predniSONE (DELTASONE) 20 mg tablet 3 Active valACYclovir (VALTREX) 1 gram tablet Take 1 tablet (1,000 mg total) by mouth 2 (two) times a day 180 tablet 1 4 Active aspirin 81 mg enteric coated tablet Take 1 tablet (81 mg total) by mouth as needed Active ciprofloxacin (CILOXAN) 0.3 % ophthalmic solution INSTILL 1 DROP 3 TIMES PER DAY STARTING 2 DAYS PRIOR TO SURGERY, CONTINUE FOR 1 WEEK AFTER SURGERY 4 Active doxycycline 100 mg tablet Take 1 tablet/capsule (100 mg total) by mouth 2 (two) times a day 4 Active traMADoL (ULTRAM) 50 mg tablet TAKE 1 OR 2 TABS BY MOUTH EVERY 6 HOURS NEEDED FOR PAIN 4 Active ketorolac (ACULAR) 0.5 % ophthalmic solution INSTILL 1 DROP 3 TIMES A DAY STARTING 2 DAYS BEFORE SURGERY, CONTINUING FOR 2 WEEKS AFTER SURGERY 4 Active ibuprofen 200 mg tab/cap Take 1 tablet/capsule (200 mg total) by mouth every 6 (six) hours as needed Active meloxicam (MOBIC) 15 mg tablet Active polyethylene glycol (MIRALAX) 17 gram/dose bulk powder Active prednisoLONE acetate (PRED FORTE) 1 % ophthalmic suspensionIndic ations: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 ADMINISTER 1 DROP INTO THE RIGHT EYE 4 (FOUR) TIMES A DAY 5 mL 11 4 Active amiodarone (PACERONE) 200 mg tablet Take 1 tablet (200 mg total) by mouth 2 (two) times a day 4 Active Eliquis 5 mg tablet Take 1 tablet (5 mg total) by mouth 2 (two) times a day 4 Active benzonatate (TESSALON) 100 mg capsule TAKE 1 CAPSULE BY MOUTH THREE TIMES A DAY NEEDED FOR COUGH 4 Active furosemide (LASIX) 20 mg tablet Take 1 tablet (20 mg total) by mouth daily 4 Active metoprolol XL (TOPROL-XL) 25 mg extended release tablet Take 1 tablet (25 mg total) by mouth daily 4 Active amitriptyline (ELAVIL) 10 mg tablet Take 1 tablet (10 mg total) by mouth nightly 30 tablet 4 06/13/20 25 Active baclofen (LIORESAL) 10 mg tablet Take 1 tablet (10 mg total) by mouth 3 (three) times a day as needed for muscle spasms 60 tablet 06/13/20 25 Active Active Problems Problem Noted Date Diagnosed Date Paresthesia 03/22/2024 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 Overview (10/12/2023): Added automatically from request for surgery [id number] Surgical History Surgery Date Site/Laterality Comments EYE SURGERY CATARACT EXTRACTION Medical History Medical History Date Comments Ankylosing spondylitis (HCC) Neuritis Neuropathy (CMS/HCC) Herpes zoster Social History Tobacco Use Types Packs/Day Years Used Date Smoking Tobacco: Never Smokeless Tobacco: Never Comments Unknown Sex and Gender Information Value Date Recorded Sex Assigned at Not on file Legal Sex 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 Gender Identity Not on file Sexual Orientation Not on file Obstetrics History Last Filed Vital Signs Vital Sign Reading Time Taken Comments Blood Pressure 122/64 06/13/2024 1:18 PM CDT Pulse 56 06/13/2024 1:18 PM CDT Temperature - - Respiratory Rate - - Oxygen Saturation 99% 10/12/2023 1:02 PM GLASS TECHNOLOGIST Inhaled Oxygen Concentration - - Weight 68 kg (150 lb) 06/13/2024 1:18 PM CDT Height 170.2 cm (5' 7 ) 06/13/2024 1:18 PM CDT Body Mass Index 23.49 06/13/2024 1:18 PM CDT Plan of Treatment Health Maintenance Due Date Last Done Comments Depression Screening 1945 Fall Risk Assessment 1945 Hepatitis C Screening 1945 Osteoporosis Screening-Bone Density Scan 1946 DTaP/Tdap/Td Vaccine (1 - Tdap) 1957 Hepatitis B Screening 1964 Pneumococcal vaccine 65+ (1 of 1 - PCV) 2011 Well Visit 65+ 2011 Influenza Vaccine (#1) 2024 06/25/2022 Zoster Vaccine Completed 08/24/2022, 06/25/2022 Insurance MEDICARE SOLUTIONS MEDICARE ASOCS MEDICARE SOLUTIONS MEDICARE ASOCS MEDICARE ASOCS Care Teams School Age Program Teacher Relationship Specialty Start Date End Date Fei Esquivel MD [address] [place] [id number] PCP - General Family Medicine 09/28/22
--- OUTSIDE RECORDS SUMMARY | 2024-11-28 10:48 | XMS_ITS | Continuity of Care Document ---
Author Organization [facility] Address [address] [address] Phone Care Team Providers Care Vacuum Metalizer Operator Name Role Phone Chantal Marie MD Unavailable [...] Encounter OFFICE/OUTPAT IENT VISIT, [facility], [address] [place] [address], [id number], [place] tel:[phone] [place] [facility] No Information 0 Jorge Cornejo. [address] [place] [address], [id number], [place]. tel:[phone] OFFICE/OUTPAT IENT VISIT, [facility], [address] [place] [address], [id number], [place] tel:[phone] [place] No Information 0 [employer] Chantal. [address] [place] [address], [address], [place], [place], [id number], [place]. tel:[phone] Referring Provider: Quan Prabhakar, [address] [facility] [address], [place], [address]. tel:[phone] [facility], [address] [place] [address], [place], [place], [id number], [place] tel:[phone] [place] No Information 0-201 0 [address] [employer] Chantal. [address] [place] [address], [address], [place], [place], [id number], [place]. tel:[phone] Referring Provider: Quan Prabhakar, [address] [facility] [address], [place], [address]. tel:[phone] [facility], [address] [place] [address] 100, [place], [id number], [place] tel:[phone] [facility] No Information 0 Nathantei [employer] Chantal. [address] [place] [address], [address], [place], [place], [id number], [place]. tel:[phone] Referring Provider: Quan Prabhakar, [address] [facility] [address], [place], [address]. tel:[phone] [facility], [address] [place] [address] 100, [place], [id number], [place] tel:[phone] [facility] No Information 0 [facility]. [address] [place] [address], [address], [place], [place], [id number]. tel:[phone] Referring Provider: Chantal Syed, [address] [place] [address] [address], [place], [address]. tel:[phone] [facility], [address] [place] [address] 100, [place], [id number], [place] tel:[phone] [facility] No Information 0 [employer] [employer] Chantal. [address] [place] [address], [facility] [place] [address], [place], [place], [id number], [place]. tel:[phone] Referring Provider: Quan Prabhakar, [facility] [facility] [address], [place], [address]. tel:[phone] [facility], [address] [place] [address] 100, [place], [place], [id number], [place] tel:[phone] [facility] No Information 0 [facility]. [address] [place] [address], [address], [place], [place], [id number]. tel:[phone] Referring Provider: Chantal Syed, [address] [place] [address] 100, [place], [address]. tel:[phone] OFFICE CONSULTATION [facility], [address] [place] [address] 100, [place], [place], [id number], [place] tel:[phone] [facility] No Information 0 [employer] Chantal. [address] [place] [address], [facility] [place] [address], [place], [id number], [place]. tel:[phone] Referring Provider: Quan Prabhakar, [facility] [facility] [address] [facility], [place], [address]. tel:[phone] [facility], [address] [place] [address] [address], [id number], [place] tel:[phone] [facility] No Information 0 [place] Chantal. [address] [place] [address], [facility] [place], [id number], [place]. tel:[phone] Referring Provider: Quan Prabhakar, [address] [facility] [address], [place], [address]. tel:[phone] Family History Family Member Type Diagnosis Age At Onset No Information Payers Payer name Insurance type Covered democrat ID Authoryoandy morelos(s) [facility] [id number] Social History Type Description Quantity Date Captured [...]
--- OUTSIDE RECORDS SUMMARY | 2024-11-28 10:48 | XMS_ITS | Referral Summary ---
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 Gender Identity Not on file Sexual Orientation Not on file Last Filed Vital Signs Vital Sign Reading Time Taken Comments Blood Pressure 122/64 06/13/2024 1:18 PM CDT Pulse 56 06/13/2024 1:18 PM CDT Temperature - - Respiratory Rate - - Oxygen Saturation 99% 10/12/2023 1:02 PM BAND SAW OPERATOR CAKE CUTTING Inhaled Oxygen Concentration - - Weight 68 kg (150 lb) 06/13/2024 1:18 PM CDT Height 170.2 cm (5' 7 ) 06/13/2024 1:18 PM CDT Body Mass Index 23.49 06/13/2024 1:18 PM CDT Plan of Treatment Not on file Insurance MEDICARE SOLUTIONS MEDICARE SOLUTIONS MEDICARE SOLUTIONS Member Subscriber Plan / Payer (Ef fective 2023-Present) Name:Ivet Walton Relation to Subscriber:Self Name:Ivet Walton Payer ID:[id number] (NAIC) Type:[facility] MEDICARE Address: [place] [phone] MEDICARE SOLUTIONS MEDICARE SOLUTIONS Care Teams Forest Products Gatherer Relationship Specialty Start Date End Date Fei Esquivel MD [address] [place] [id number] PCP - General Family Medicine 09/28/22
--- OUTSIDE RECORDS SUMMARY | 2024-11-28 10:48 | XMS_ITS | Clinical Summary ---
Author Organization [facility] Address [facility] [facility] [place] [address] [place] [address] Care Team Providers Care Compressed Gas Tester Name Role Phone Maria Allen Primary Care Provider Allergies Active Allergy Reactions Criticality Noted Date Comments Morphine Swelling High 04/19/2021 Medications pantoprazole EC 40 MG tablet Take 1 tablet (40 mg total) by mouth daily. 05/25/2021 Active sucralfate 1 G tablet Take 1 tablet (1 g total) by mouth 3 (three) times daily before meals. 02/08/2021 Active PREMARIN 0.625 MG/GM vaginal cream 05/13/2021 Active prednisoLONE acetate 1 % ophthalmic suspension Place 1 drop into the left eye 3 (three) times daily. 07/25/2021 Active valACYclovir (VALTREX) 500 MG tablet TAKE 2 TABLETS (1,000 MG TOTAL) BY MOUTH 3 TIMES A DAY 01/04/2023 Active baclofen (LIORESAL) 10 MG tablet Take 1 tablet (10 mg total) by mouth. 11/08/2023 Active Ibuprofen (ADVIL) 200 MG capsule Take 200 mg by mouth every 6 (six) hours as needed. Active aspirin EC (ECOTRIN) 81 MG tablet Take 1 tablet (81 mg total) by mouth as needed for Pain. Active famotidine (PEPCID) 20 MG tabletIndication s:Gastric dysplasia,Gastro esophageal reflux disease with esophagitis without hemorrhage,Oroph aryngeal dysphagia TAKE 1 TABLET BY MOUTH 2 TIMES DAILY FOR 30 DAYS. 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 Overview (01/13/2023): Added automatically from request for surgery [id number] Family hx of colon cancer 01/13/2023 Overview (01/13/2023): Added automatically from request for surgery [id number] Screening for colon cancer 01/13/2023 Overview (01/13/2023): Added automatically from request for surgery [id number] Hx of adenomatous colonic polyps 01/13/2023 Overview (01/13/2023): Added automatically from request for surgery [id number] Family History Medical History Relation Comments Colon Cancer Cousin None Father Alzheimers Mother Kidney Disease Mother Colon Cancer Paternal Uncle Breast Cancer Neg Hx Relation Status Comments Cousin Alive Father Mother Paternal Uncle Social History Tobacco Use Types Packs/Day Years Used Date Smoking Tobacco: Former Cigarettes 1986 Smokeless Tobacco: Never Tobacco Cessation:Counseling Given: Not Answered Comments:not a smoker Alcohol Use Standard Drinks/Week Comments Never 0 (1 standard drink = 0.6 oz pur e alcohol) AUDIT-C Answer Date Recorded Q1: How often do you have a drink containing alc ohol? Never 04/19/2021 Average Number of Drinks Not on file 021 Frequency of Binge Drinking Not on file 04/01 PHQ-2 Answer Date Recorded Patient Health Questionnaire-2 Score 0 02/04/2023 Comments No Sex and Gender Information Value Date Recorded Sex Assigned at Not on file Legal Sex Female 11:37 AM CDT Gender Identity Not on file Sexual Orientation Straight 04/09/2023 12 :47 PM CDT Last Filed Vital Signs Vital Sign Reading Time Taken Comments Blood Pressure 123/69 12/20/2023 9:20 AM SPRAY CREW Pulse 89 12/20/2023 9:20 AM SPRAY CREW Temperature 36.7 ??C (98 ??F) 12/20/2023 7:50 AM SPRAY CREW Respiratory Rate 18 12/20/2023 9:20 AM SPRAY CREW Oxygen Saturation 97% 12/20/2023 9:20 AM SPRAY CREW Inhaled Oxygen Concentration - - Weight 68.5 kg (151 lb) 12/20/2023 7:51 AM SPRAY CREW Height 170.2 cm (5' 7 ) 12/20/2023 7:51 AM SPRAY CREW Body Mass Index 23.65 12/20/2023 7:51 AM SPRAY CREW Plan of Treatment Health Maintenance Due Date Last Done Comments Hepatitis C 1964 DTaP, Tdap and Td Vaccines ( 1 - Tdap) 1965 Annual Medicare Wellness Visit 2011 Dexa Scan (General) 2011 Pneumococcal Vaccine: 65+ Years (1 of 1 - PCV) 2011 RSV Immunization or 60+ Years (1 - 1-dose 75+ series) 2021 PHQ-2 (Physician [employer]) 02/05/2024 02/04/2023 COVID-19 Vaccine ( - 2023-2 5 season) 2024 Influenza Adult (#1) 2024 PHQ-2 (Physician [employer]) 11/01/2024 02/04/2023 Zoster Vaccines Completed 08/24/2022, 06/25/2022 Colorectal Cancer Screening Colonoscopy (10 Years) Discontinued 01/21/2023, 01/21/2023 Meningococcal B Vaccine Aged Out No l onger eligible based on patient's age to complete this topic Meningococcal Vaccine Aged Out No ana jo eligible based on patient's age to complete this topic RSV Immunizations Under 20 Months Aged Out No longer eligible based on patient's age to complete this topic Medical Devices Implanted Type Area Meat Sales And Storage Manager Device Identifier Shelf Expiration Date Model / Serial / Lot Ocular Lens Implanted:Qty: 1 on 12/20/2023 by Dharmesh Johns MD at [facility] KIRST[facility] Left: Eye [id number] 11/10/2025 [id number] / [id number] / Procedures Procedure Name Priority Date/Time Associated Diagnosis Comments COLONOSCOPY Routine 01/21/2023 6:58 AM CDT from Last 3 Months or Most Recently Relevant to Health Maintenance Insurance [facility] Care Teams Compressed Gas Tester Relationship Specialty Start Date End Date Maria Allen FNP [address] [place] [id number] PCP - General Nurse Practitioner Family 08/08/24
[2024-11-28 11:18] LABS: Hemoglobin 6.8 g/dL (12.0-15.0)
== END 2024-11-28 09:54 | disposition home or self-care (01) ==
LOC: ANHSURGERY 10:01
PROVIDERS: Anesthesiology; PCP Nurse Practitioner Family; Visit Provider Surgery
DX: D12.3 Benign neoplasm of transverse colon (principal)
CPT/HCPCS: 36415; 85014; 85018; 86850; 86900; 86901

== ENCOUNTER 2024-11-29 13:34 | Observation (INO) | payer MEDICARE, SELFPAY ==
--- NOTE | ~2024-11-29 | XR_ITS ---
EXAMINATION: XR chest 2V DATE: 11/29/2024 14:05 INDICATION: Chest pain and persistent cough TECHNIQUE: PA and lateral views of the chest were obtained. COMPARISON: Chest radiograph dated 06/05/[address] dated 10/10/2024 FINDINGS: Chronic findings reticular opacities at the periphery of the right mid to lower lung and in the left lower lung zone consistent with chronic interstitial lung disease. No new airspace opacities, or pleu ral effusion or pneumothorax. Mild cardiomegaly. Cholecystectomy clips in right upper quadrant. Thora cic kyphosis with mild anterior wedging of a few lower thoracic vertebral bodies. C4-C7 anterior spin al fusion with plate and screw fixation. Suture anchor at the right humeral head from prior rotator c uff repair. IMPRESSION: 1. Typical appearance of bilateral mild chronic interstitial lung disease with no acute cardiopulmona ry disease. 2. Cardiomegaly. Reviewed, dictated and finalized at location B. FEEDER IMPRESSION: 1. Typical appearance of bilateral mild chronic interstitial lung disease with no acute cardiopulmonary disease. 2. Cardiomegaly.
[2024-11-29 13:39] VITALS: BP 111/37; PULSE 72; RESP 16; TEMP 36.1; O2SAT 100
--- NOTE | 2024-11-29 13:43 | ED_ITS ---
HPI - Recheck/Abnormal Lab/Rx General Chief Complaint: Recheck/Abnormal Lab/Rx <Adri Brown PA-C - Last Filed: 11/29/24 13:48> Stated Complaint: low Hemoglobin <Adri Brown PA-C - Last Filed: 11/29/24 13:48> Time Seen by Provider: 11/29/24 20:49 <Adri Brown PA-C - Last Filed: 11/29/24 13:48> Focused HPI: 79 y/o F presents to the ED for low hgb. Pt states she had her labs drawn by Candelaria Randall, pulmonology [facility], yesterday and was contacted this morning and told her hemoglobin was 6.8 and she did go to the emergency department. She reports a history of anemia but states she has never had required a blood transfusion. She is reporting some shortness of breath and intermittent chest pain, lightheadedness and dizziness. No syncope. Denies melena or hematochezia. She is taking Eliquis which she is states is for her ?stiff heart and leaky valves . [employer] Administrator is Dr. De La Torre. GENERAL: Well-appearing, well-nourished, and in no acute distress. HEAD: Normocephalic, atraumatic. CHEST: Clear to auscultation. ?No respiratory distress. HEART: Regular rate and rhythm.? NEURO: ?Alert and oriented x3. Patient screened in triage and initial orders placed.? ?Additional care and disposition to be based upon?diagnostic testing and treatment. <Adri Brown PA-C - Last Filed: 11/29/24 13:48> Source: patient <MILO Suazo Last Filed: 11/30/24 02:28> Mode of arrival: ambulatory <Milan Oconnell PA-C - Last Filed: 11/30/24 02:28> Limitations: no limitations <MILO Suazo Last Filed: 11/30/24 02:28> History of Present Illness HPI narrative: agree with MSE no above. On my arrival patient confirms that she is not having any current pain. Denies any bleeding symptoms that she knows of. States that she is feeling very winded whenever she has to get up to walk, feeling very weak. <Milan Oconnell PA-C - Last Filed: 11/30/24 02:28> Related Data Home Medications: Home Medications ?Medication ?Instructions ?Recorded ?Confirmed ?Last Taken ?Type valacyclovir 500 mg tablet 500 mg PO BID 10/07/22 11/29/24 11/29/24 History multivitamin 1 tablet PO DAILY 04/06/23 11/29/24 11/29/24 History acetaminophen 325 mg capsule 325 mg PO ONCE PRN pain 11/28/24 11/29/24 Unknown History (Tylenol) baclofen 10 mg tablet 10 mg PO TID PRN muscle spasm 11/29/24 11/29/24 Unknown History benzonatate 100 mg capsule 100 mg PO TID PRN cough 11/29/24 11/29/24 Unknown History <Adri Brown PA-C - Last Filed: 11/29/24 13:48> Allergies/Adverse Reactions: Allergies Allergy/AdvReac Type Severity Reaction Status Date / Time Opioids - Morphine Analogues Allergy Severe Swelling Verified 11/29/24 23:40 tramadol (From Ultracet) AdvReac Severe Itching Verified 11/29/24 23:40 ubrogepant (From Ubrelvy) AdvReac Severe Headache Verified 11/29/24 23:40 atogepant (From Qulipta) AdvReac Intermediate Headache Verified 11/29/24 23:40 <Adri Brown PA-C - Last Filed: 11/29/24 13:48> Review of Systems 2 Review of Systems: All systems as dictated in HPI <Milan Oconnell PA-C - Last Filed: 11/30/24 02:28> [facility] Past Medical History Medical History: Medical History Pulmonary hypertension Preoperative clearance CAD (coronary artery disease) Fibromyalgia Ankylosing spondylitis Cervical osteoarthritis Headache Migraine Congestive heart failure with left ventricular diastolic dysfunction Left shoulder pain Degenerative arthritis of knee, bilateral History of hiatal hernia IBS (irritable bowel syndrome) History of heart attack Headache Arthritis <Adri Brown PA-C - Last Filed: 11/29/24 13:48> Surgical History Surgical History: Surgical History H/O colonoscopy with polypectomy 01/21/23 Dr. Mark History of rotator cuff surgery History of cataract surgery History of neck surgery History of foot surgery History of hand surgery History of axillary surgery History of tonsillectomy and adenoidectomy <Adri Brown PA-C - Last Filed: 11/29/24 13:48> Family History Family History: Family History Mother Kidney malignancy Father Prostate carcinoma <Adri Brown PA-C - Last Filed: 11/29/24 13:48> Social History Social History: Social History Social History: 08/16/24 very confident with medical forms Smoking packs per day: 0.25 Smoking cigarettes per day: 5.0 Years smoked: 25 Smoking pack-years: 6.25 Smoking status: Former smoker Tobacco type: cigarettes Smoking end date: 11/01/86 Alcohol intake: never Substance use: never Substance use type: does not use Do You Feel Safe in your Home?: Yes Lack of Transportation: No Lack of Food: Never True Current Housing: I Have Housing Concerned About Future Housing: No Difficulty Paying Gas/Electric Bills: No Difficulty Paying for Meds: No Currently Unemployed: No Education: Decline to Answer Difficulty w/ Childcare or Family Care: No Living arrangements: with family Additional living arrangements comments: Occupation/Education: retired Gender identity (if verbalized by the patient): Female Sexual Orientation (if Verbalized by the Patient): Straight or Heterosexual Spiritual care concerns: Yes (Yazdanism) <Adri Brown PA-C - Last Filed: 11/29/24 13:48> Exam 2 Narrative: GENERAL: Well-appearing, well-nourished, and in no acute distress. HEAD: Normocephalic, atraumatic. EYES: PERRLA and EOMI. ENT: Nares clear, no rhinorrhea or epistaxis. Mucous membranes moist. Oropharynx without tonsillar hypertrophy exudate or other lesions. NECK: Supple. No adenopathy or masses. CHEST: No respiratory distress. Clear to auscultation. No wheezes rales or rhonchi HEART: Regular rate and rhythm. No murmur heard. Normal peripheral pulses. ABDOMEN: Soft, nontender, nondistended, normal active bowel sounds. MSK: Normal range of motion. No edema. SKIN: Warm, dry, no rash. NEURO: Alert and oriented x4. No focal deficits. PSYCH: Normal mood and affect. Rectal exam done with female RN moid middle school teacher present; No hemorrhoids noted. No obdulio blood. Guaiac test is negative <Milan Oconnell PA-C - Last Filed: 11/30/24 02:28> Course CLIENT ACCOUNT ASSISTANT/PA Physician Supervision Patient's HPI, Exam, and MDM were reviewed and I agreed with the workup and disposition done in the emergency department by the MLP. I was available for consultation, but was not directly involved with patient's care nor did I evaluate the patient. <Lobito Berrios MD - Last Filed: 11/30/24 04:09> Vital Signs Vital signs: Vital Signs Temperature 36.1 C L 11/29/24 13:39 Pulse Rate 72 11/29/24 13:39 Respiratory Rate 16 11/29/24 13:39 Blood Pressure 111/37 L 11/29/24 13:39 Pulse Oximetry 100 11/29/24 13:39 Oxygen Delivery Room Air 11/29/24 13:39 Temperature 36.7 C 11/30/24 04:03 Pulse Rate 60 11/30/24 04:03 Respiratory Rate 16 11/30/24 04:03 Blood Pressure 120/66 11/30/24 04:03 Pulse Oximetry 97 11/30/24 04:03 Oxygen Delivery Room Air 11/30/24 00:00 <Adri Brown PA-C - Last Filed: 11/29/24 13:48> Vital Signs Temperature 36.1 C L 11/29/24 13:39 Pulse Rate 72 11/29/24 13:39 Respiratory Rate 16 11/29/24 13:39 Blood Pressure 111/37 L 11/29/24 13:39 Pulse Oximetry 100 11/29/24 13:39 Oxygen Delivery Room Air 11/29/24 13:39 Temperature 36.7 C 11/30/24 04:03 Pulse Rate 60 11/30/24 04:03 Respiratory Rate 16 11/30/24 04:03 Blood Pressure 120/66 11/30/24 04:03 Pulse Oximetry 97 11/30/24 04:03 Oxygen Delivery Room Air 11/30/24 00:00 <Milan Oconnell PA-C - Last Filed: 11/30/24 02:28> Vital Signs Temperature 36.1 C L 11/29/24 13:39 Pulse Rate 72 11/29/24 13:39 Respiratory Rate 16 11/29/24 13:39 Blood Pressure 111/37 L 11/29/24 13:39 Pulse Oximetry 100 11/29/24 13:39 Oxygen Delivery Room Air 11/29/24 13:39 Temperature 36.7 C 11/30/24 04:03 Pulse Rate 60 11/30/24 04:03 Respiratory Rate 16 11/30/24 04:03 Blood Pressure 120/66 11/30/24 04:03 Pulse Oximetry 97 11/30/24 04:03 Oxygen Delivery Room Air 11/30/24 00:00 <Lobito Berrios MD - Last Filed: 11/30/24 04:09> MDM - Recheck/Abnormal Lab/Rx MDM Narrative Medical decision making narrative: This is a 79-year-old female who presents to the ED for abnormal outpatient lab draw with a hemoglobin of 6.8 yesterday. She is feeling very generally weak, but having no specific bleeding symptoms. Vitals show mildly low blood pressure but otherwise normal. Exam remarkable for the above. Lab work today shows hemoglobin back up to 7.3. Chest x-ray: IMPRESSION: 1. Typical appearance of bilateral mild chronic interstitial lung disease with no acute cardiopulmonary disease. 2. Cardiomegaly. Bedside guaiac test today negative. Still suspect that this low hemoglobin is likely result of a GI source given that she has recent diagnosis of internal hemorrhoids and sessile polyp to the transverse colon, for which she is still being worked up and treated. Will plan to hold on blood transfusion at this time and continue with serial H&Hs and close monitoring. Discussed the case with GI, Dr. Islas who will consult on the patient. Discussed the case with hospitalist, Dr. Nicolas, who agrees to admit the patient to IMU. <Milan Oconnell PA-C - Last Filed: 11/30/24 02:28> Lab Data Result diagrams: 11/29/24 22:46 11/29/24 13:45 <Adri Brown PA-C - Last Filed: 11/29/24 13:48> Labs: Lab Results 11/29/24 11/29/24 11/29/24 Range/Units 13:45 20:54 21:27 WBC 6.0 (4.5-10.0) K/mm3 RBC 2.99 L (4.2-5.4) M/mm3 Hgb 7.3 L (12.0-15.0) g/dL Hct 24.9 L (37.0-47.0) % MCV 83.3 (80-100) fl MCH 24.4 L (26-34) pg MCHC 29.3 L (32-36) g/dl RDW 16.5 H (11.5-14.5) % Plt Count 312 (150-375) k/mm3 MPV 10.5 H (7.4-10.4) fl Immature Gran % (Auto) 0.2 (0-0.5) % Neut % (Auto) 43.5 L (45.5-73.1) % Lymph % (Auto) 39.6 (18.3-44.2) % Whitley % (Auto) 12.2 H (2.6-8.5) % Eos % (Auto) 3.0 (0-4.4) % Baso % (Auto) 1.5 H (0.2-1.2) % Lymph # (Auto) 2.37 (0.9-3.2) K/mm3 Whitley # (Auto) 0.7 H (0.1-0.6) K/mm3 Eos # (Auto) 0.2 (0-0.3) K/mm3 Baso # (Auto) 0.1 (0.0-0.1) K/mm3 Abs Immat Gran (auto) 0.01 (0.00-0.031) K/mm3 Absolute Neuts (auto) 2.6 (1.3-6.7) K/mm3 Absolute Nucleated RBC 0.000 (0.0-0.012) K/mm3 Nucleated RBC % 0.0 (0.0-0.2) % Platelet Estimate Adequate (Adequate) Polychromasia 1+ Hypochromasia 2+ Anisocytosis 1+ Ovalocytes 1+ Schistocytes None seen PT 17.8 H (11.1-14.7) Seconds INR 1.4 APTT 37.3 H (22.3-36.8) Seconds Sodium 137 (137-145) mmol/L Potassium 4.5 (3.4-5.0) mmol/L Chloride 103 (98-107) mmol/L Carbon Dioxide 24 (22-30) mmol/L Anion Gap 10 (4-12) mmol/L BUN 22 H (7-17) mg/dL Creatinine 0.99 (0.7-1.0) mg/dL Estim Creat Clear Calc 40 ml/min Estimated GFR 54 L (59 - ) Glucose 85 (65-110) mg/dL Calcium 8.5 (8.4-10.2) mg/dL Iron 31 L (37-170) ug/dL TIBC 502 H (261-462) ug/dL % Saturation 6 L (20-50) % Transferrin 370 (206-381) mg/dL Ferritin 7.67 L (11.1-264) ng/mL Total Bilirubin 0.4 (0.2-1.3) mg/dL AST 42 H (14-36) U/L ALT 29 (6-35) U/L Alkaline Phosphatase 117 (38-126) U/L Lactate Dehydrogenase 228 (120-246) U/L Troponin I < 0.012 < 0.012 (0.000-0.034) ng/mL NT-Pro-B Natriuret Pep 2670 H (19.9-100) pg/mL Total Protein 7.0 (6.3-8.2) g/dL Albumin 4.0 (3.5-5.1) g/dL Lipase 61 (23-300) U/L Vitamin B12 478.0 (239-931) pg/mL Folate > 20.0 H (2.76->20) ng/mL TSH (Reflex) 4.940 H (0.465-4.68) uIU/mL Free T4 Pending Urine Color Yellow (Yellow) Urine Appearance Clear (Clear) Urine pH 6.5 (5.0-9.0) Ur Specific [place] 1.014 (1.001-1.035) Urine Protein Negative (Negative) mg/dL Urine Glucose (UA) Negative (Negative) mg/dL Urine Ketones Negative (Negative) mg/dL Ur Blood (Man) Negative (Negative) Urine Nitrate Negative (Negative) Urine Bilirubin Negative (Negative) Urine Urobilinogen 0.2 (<2.0) mg/dL Leukocyte Esterase Rfl 2+ H (Negative) BRIAN/UL Urine RBC 0-2 (0-2) /hpf Urine WBC 11-20 H (0-3) /hpf Ur Squamous Epith Cells None seen (Few) /hpf Urine Bacteria None seen /hpf Urine Casts 0-2 Blood Type A Positive Antibody Screen Negative Crossmatch See Detail <Adri Brown PA-C - Last Filed: 11/29/24 13:48> Lab Results 11/29/24 11/29/24 11/29/24 Range/Units 13:45 20:54 21:27 WBC 6.0 (4.5-10.0) K/mm3 RBC 2.99 L (4.2-5.4) M/mm3 Hgb 7.3 L (12.0-15.0) g/dL Hct 24.9 L (37.0-47.0) % MCV 83.3 (80-100) fl MCH 24.4 L (26-34) pg MCHC 29.3 L (32-36) g/dl RDW 16.5 H (11.5-14.5) % Plt Count 312 (150-375) k/mm3 MPV 10.5 H (7.4-10.4) fl Immature Gran % (Auto) 0.2 (0-0.5) % Neut % (Auto) 43.5 L (45.5-73.1) % Lymph % (Auto) 39.6 (18.3-44.2) % Whitley % (Auto) 12.2 H (2.6-8.5) % Eos % (Auto) 3.0 (0-4.4) % Baso % (Auto) 1.5 H (0.2-1.2) % Lymph # (Auto) 2.37 (0.9-3.2) K/mm3 Whitley # (Auto) 0.7 H (0.1-0.6) K/mm3 Eos # (Auto) 0.2 (0-0.3) K/mm3 Baso # (Auto) 0.1 (0.0-0.1) K/mm3 Abs Immat Gran (auto) 0.01 (0.00-0.031) K/mm3 Absolute Neuts (auto) 2.6 (1.3-6.7) K/mm3 Absolute Nucleated RBC 0.000 (0.0-0.012) K/mm3 Nucleated RBC % 0.0 (0.0-0.2) % Platelet Estimate Adequate (Adequate) Polychromasia 1+ Hypochromasia 2+ Anisocytosis 1+ Ovalocytes 1+ Schistocytes None seen PT 17.8 H (11.1-14.7) Seconds INR 1.4 APTT 37.3 H (22.3-36.8) Seconds Sodium 137 (137-145) mmol/L Potassium 4.5 (3.4-5.0) mmol/L Chloride 103 (98-107) mmol/L Carbon Dioxide 24 (22-30) mmol/L Anion Gap 10 (4-12) mmol/L BUN 22 H (7-17) mg/dL Creatinine 0.99 (0.7-1.0) mg/dL Estim Creat Clear Calc 40 ml/min Estimated GFR 54 L (59 - ) Glucose 85 (65-110) mg/dL Calcium 8.5 (8.4-10.2) mg/dL Iron 31 L (37-170) ug/dL TIBC 502 H (261-462) ug/dL % Saturation 6 L (20-50) % Transferrin 370 (206-381) mg/dL Ferritin 7.67 L (11.1-264) ng/mL Total Bilirubin 0.4 (0.2-1.3) mg/dL AST 42 H (14-36) U/L ALT 29 (6-35) U/L Alkaline Phosphatase 117 (38-126) U/L Lactate Dehydrogenase 228 (120-246) U/L Troponin I < 0.012 < 0.012 (0.000-0.034) ng/mL NT-Pro-B Natriuret Pep 2670 H (19.9-100) pg/mL Total Protein 7.0 (6.3-8.2) g/dL Albumin 4.0 (3.5-5.1) g/dL Lipase 61 (23-300) U/L Vitamin B12 478.0 (239-931) pg/mL Folate > 20.0 H (2.76->20) ng/mL TSH (Reflex) 4.940 H (0.465-4.68) uIU/mL Free T4 Pending Urine Color Yellow (Yellow) Urine Appearance Clear (Clear) Urine pH 6.5 (5.0-9.0) Ur Specific [place] 1.014 (1.001-1.035) Urine Protein Negative (Negative) mg/dL Urine Glucose (UA) Negative (Negative) mg/dL Urine Ketones Negative (Negative) mg/dL Ur Blood (Man) Negative (Negative) Urine Nitrate Negative (Negative) Urine Bilirubin Negative (Negative) Urine Urobilinogen 0.2 (<2.0) mg/dL Leukocyte Esterase Rfl 2+ H (Negative) BRIAN/UL Urine RBC 0-2 (0-2) /hpf Urine WBC 11-20 H (0-3) /hpf Ur Squamous Epith Cells None seen (Few) /hpf Urine Bacteria None seen /hpf Urine Casts 0-2 Blood Type A Positive Antibody Screen Negative Crossmatch See Detail <Milan Oconnell PA-C - Last Filed: 11/30/24 02:28> Lab Results 11/29/24 11/29/24 11/29/24 Range/Units 13:45 20:54 21:27 WBC 6.0 (4.5-10.0) K/mm3 RBC 2.99 L (4.2-5.4) M/mm3 Hgb 7.3 L (12.0-15.0) g/dL Hct 24.9 L (37.0-47.0) % MCV 83.3 (80-100) fl MCH 24.4 L (26-34) pg MCHC 29.3 L (32-36) g/dl RDW 16.5 H (11.5-14.5) % Plt Count 312 (150-375) k/mm3 MPV 10.5 H (7.4-10.4) fl Immature Gran % (Auto) 0.2 (0-0.5) % Neut % (Auto) 43.5 L (45.5-73.1) % Lymph % (Auto) 39.6 (18.3-44.2) % Whitley % (Auto) 12.2 H (2.6-8.5) % Eos % (Auto) 3.0 (0-4.4) % Baso % (Auto) 1.5 H (0.2-1.2) % Lymph # (Auto) 2.37 (0.9-3.2) K/mm3 Whitley # (Auto) 0.7 H (0.1-0.6) K/mm3 Eos # (Auto) 0.2 (0-0.3) K/mm3 Baso # (Auto) 0.1 (0.0-0.1) K/mm3 Abs Immat Gran (auto) 0.01 (0.00-0.031) K/mm3 Absolute Neuts (auto) 2.6 (1.3-6.7) K/mm3 Absolute Nucleated RBC 0.000 (0.0-0.012) K/mm3 Nucleated RBC % 0.0 (0.0-0.2) % Platelet Estimate Adequate (Adequate) Polychromasia 1+ Hypochromasia 2+ Anisocytosis 1+ Ovalocytes 1+ Schistocytes None seen PT 17.8 H (11.1-14.7) Seconds INR 1.4 APTT 37.3 H (22.3-36.8) Seconds Sodium 137 (137-145) mmol/L Potassium 4.5 (3.4-5.0) mmol/L Chloride 103 (98-107) mmol/L Carbon Dioxide 24 (22-30) mmol/L Anion Gap 10 (4-12) mmol/L BUN 22 H (7-17) mg/dL Creatinine 0.99 (0.7-1.0) mg/dL Estim Creat Clear Calc 40 ml/min Estimated GFR 54 L (59 - ) Glucose 85 (65-110) mg/dL Calcium 8.5 (8.4-10.2) mg/dL Iron 31 L (37-170) ug/dL TIBC 502 H (261-462) ug/dL % Saturation 6 L (20-50) % Transferrin 370 (206-381) mg/dL Ferritin 7.67 L (11.1-264) ng/mL Total Bilirubin 0.4 (0.2-1.3) mg/dL AST 42 H (14-36) U/L ALT 29 (6-35) U/L Alkaline Phosphatase 117 (38-126) U/L Lactate Dehydrogenase 228 (120-246) U/L Troponin I < 0.012 < 0.012 (0.000-0.034) ng/mL NT-Pro-B Natriuret Pep 2670 H (19.9-100) pg/mL Total Protein 7.0 (6.3-8.2) g/dL Albumin 4.0 (3.5-5.1) g/dL Lipase 61 (23-300) U/L Vitamin B12 478.0 (239-931) pg/mL Folate > 20.0 H (2.76->20) ng/mL TSH (Reflex) 4.940 H (0.465-4.68) uIU/mL Free T4 Pending Urine Color Yellow (Yellow) Urine Appearance Clear (Clear) Urine pH 6.5 (5.0-9.0) Ur Specific [place] 1.014 (1.001-1.035) Urine Protein Negative (Negative) mg/dL Urine Glucose (UA) Negative (Negative) mg/dL Urine Ketones Negative (Negative) mg/dL Ur Blood (Man) Negative (Negative) Urine Nitrate Negative (Negative) Urine Bilirubin Negative (Negative) Urine Urobilinogen 0.2 (<2.0) mg/dL Leukocyte Esterase Rfl 2+ H (Negative) BRIAN/UL Urine RBC 0-2 (0-2) /hpf Urine WBC 11-20 H (0-3) /hpf Ur Squamous Epith Cells None seen (Few) /hpf Urine Bacteria None seen /hpf Urine Casts 0-2 Blood Type A Positive Antibody Screen Negative Crossmatch See Detail <Lobito Berrios MD - Last Filed: 11/30/24 04:09> Discharge Plan Discharge Clinical Impression: Anemia <Adri Brown PA-C - Last Filed: 11/29/24 13:48> Patient Disposition: Still a Patient <Adri Brown PA-C - Last Filed: 11/29/24 13:48> Condition: Stable <Adri Brown PA-C - Last Filed: 11/29/24 13:48>
--- NOTE | 2024-11-29 13:45 | ECG_ITS ---
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
[2024-11-29 13:57] LABS: Basophils Absolute Auto 0.1 K/mm3 (0.0-0.1); Basophils Percent Auto 1.5 % (0.2-1.2); Eosinophils Absolute Auto 0.2 K/mm3 (0-0.3); Hematocrit 24.9 % (37.0-47.0); Hemoglobin 7.3 g/dL (12.0-15.0); Immature Granulocyte Absolute 0.01 K/mm3 (0.00-0.031); Immature Granulocyte Percent A 0.2 % (0-0.5); Lymphocytes Absolute Auto 2.37 K/mm3 (0.9-3.2); Lymphocytes Percent Auto 39.6 % (18.3-44.2); Mean Corpuscular HGB Conc 29.3 g/dl (32-36); Mean Corpuscular Hemoglobin 24.4 pg (26-34); Mean Corpuscular Volume 83.3 fl (80-100); Mean Platelet Volume 10.5 fl (7.4-10.4); Monocytes Absolute Auto 0.7 K/mm3 (0.1-0.6); Monocytes Percent Auto 12.2 % (2.6-8.5); Neutrophils Absolute Auto 2.6 K/mm3 (1.3-6.7); Neutrophils Percent Auto 43.5 % (45.5-73.1); Platelet Count Result 312 k/mm3 (150-375); Red Blood Count 2.99 M/mm3 (4.2-5.4); Red Cell Distribution Width 16.5 % (11.5-14.5)
[2024-11-29 14:03] LABS: Alanine Aminotransferase 29 U/L (6-35); Alkaline Phosphatase 117 U/L (38-126); Anion Gap 10 mmol/L (4-12); Aspartate Amino Transferase 42 U/L (14-36); Bilirubin,Total 0.4 mg/dL (0.2-1.3); Blood Urea Nitrogen 22 mg/dL (7-17); Calcium 8.5 mg/dL (8.4-10.2); Carbon Dioxide 24 mmol/L (22-30); Chloride 103 mmol/L (98-107); Estimated CRCL calculation 40 ml/min; Estimated Glomerular Filt Rate 54; Glucose 85 mg/dL (65-110); Potassium 4.5 mmol/L (3.4-5.0); Sodium 137 mmol/L (137-145)
[2024-11-29 14:05] LABS: INR 1.4; Prothrombin Time 17.8 Seconds (11.1-14.7)
[2024-11-29 14:06] LABS: Partial Thromboplastin Time 37.3 Seconds (22.3-36.8)
[2024-11-29 14:16] LABS: Lipase 61 U/L (23-300)
[2024-11-29 14:20] LABS: Anisocytosis 1+; Hypochromasia 2+; Platelet Estimate Adequate (Adequate); Polychromasia 1+
[2024-11-29 14:21] LABS: Ovalocytes 1+; Schistocytes None Seen
--- OUTSIDE RECORDS SUMMARY | 2024-11-29 14:27 | XMS_ITS | Continuity of Care Document ---
Author Organization [facility] Address [address] [address] Phone Care Team Providers Care Outsole Cementer Name Role Phone Chantal Marie MD Unavailable [...] OFFICE/OUTPAT IENT VISIT, EST [facility], [address] [place] [address], [id number], [place] tel:[phone] [facility] No Information 0 Jorge Cornejo. [address] [place] [address], [id number], [place]. tel:[phone] OFFICE/OUTPAT IENT VISIT, EST [facility], [address] [place] [address], [id number], [place] tel:[phone] [facility] No Information 0 [employer] Chantal. [address] [place] [address], [address], [place], [place], [id number], [place]. tel:[phone] Referring Provider: Quan Prabhakar, [address] [facility] [address], [place], [address]. tel:[phone] [facility], [address] [place], [place] [address], [place], [place], [id number], [place] tel:[phone] [facility] No Information 0-201 0 [address] Chantal. [address] [place] [address], [address], [place], [place], [id number], [place]. tel:[phone] Referring Provider: Quan Prabhakar, [address] [facility] [address], [place], [address]. tel:[phone] [facility], [address] [place] [address] 100, [place], [place], [id number], [place] tel:[phone] [facility] No Information 0 [place] [employer] Chantal. [address] [place] [address], [address], [place], [place], [id number], [place]. tel:[phone] Referring Provider: Quan Prabhakar, [address] [facility] [address], [place], [address]. tel:[phone] [facility], [address] [place] [address] 100, [place], [place], [id number], [place] tel:[phone] [facility] No Information 0 [facility]. [address] [place] [address], [address], [place], [place], [id number]. tel:[phone] Referring Provider: Chantal Syed, [address] [place] [address] [address], [place], [address]. tel:[phone] [facility], [address] [place] [address] 100, [place], [place], [id number], [place] tel:[phone] [facility] No Information 0 [employer] [employer] [place]antal. [address] [place] [address], [facility] 100, [place], [place], [id number], [place]. tel:[phone] Referring Provider: Quan Prabhakar, [facility] [address], [place], [address]. tel:[phone] [facility], [address] [place] [address] 100, [place], [place], [id number], [place] tel:[phone] [facility] No Information 0 [facility]. [address] [place] [address], [address], [place], [place], [id number]. tel:[phone] Referring Provider: Chantal Syed, [address] [place] [address] 100, [place], [address]. tel:[phone] OFFICE CONSULTATION [facility], [address] [place] [address] 100, [place], [place], [id number], [place] tel:[phone] [facility] No Information 0 [employer] Chantal. [address] [place] [address], [facility] 100, [place], [id number], [place]. tel:[phone] Referring Provider: Quan Prabhakar, [facility] Suite [facility] [place], [place], [address]. tel:[phone] [facility], [address] [place] [address], [place], [id number], [place] tel:[phone] [facility] No Information 0 [employer] [employer] Chantal. [address] [place] [address], [facility] [address], [id number], [place]. tel:[phone] Referring Provider: Quan Prabhakar, [address] [facility] [address], [place], [address]. tel:[phone] Family History Family Member Type Diagnosis Age At Onset No Information Payers Payer name Insurance type Covered libertarian ID Authoryoandy morelos(s) [facility] [id number] Social History Type Description Quantity Date Captured [...]
--- OUTSIDE RECORDS SUMMARY | 2024-11-29 14:27 | XMS_ITS | Referral Summary ---
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 Gender Identity Not on file Sexual Orientation Not on file Last Filed Vital Signs Vital Sign Reading Time Taken Comments Blood Pressure 122/64 06/13/2024 1:18 PM CDT Pulse 56 06/13/2024 1:18 PM CDT Temperature - - Respiratory Rate - - Oxygen Saturation 99% 10/12/2023 1:02 PM 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 Inhaled Oxygen Concentration - - Weight 68 kg (150 lb) 06/13/2024 1:18 PM CDT Height 170.2 cm (5' 7 ) 06/13/2024 1:18 PM CDT Body Mass Index 23.49 06/13/2024 1:18 PM CDT Plan of Treatment Not on file Insurance MEDICARE SOLUTIONS MEDICARE SOLUTIONS MEDICARE SOLUTIONS Member Subscriber Plan / Payer (Ef fective 2023-Present) Name:Ivet Walton Relation to Subscriber:Self Name:Ivet Walton Payer ID:[id number] (NAIC) Type:[facility] MEDICARE Address: [place] [id number] MEDICARE SOLUTIONS MEDICARE SOLUTIONS Care Teams Ethologist Relationship Specialty Start Date End Date Fei Esquivel MD [address] [place] [id number] PCP - General Family Medicine 09/28/22
--- OUTSIDE RECORDS SUMMARY | 2024-11-29 14:27 | XMS_ITS | Clinical Summary ---
Author Organization [facility] Address [facility] [place] [address] [place] [address] Care Team Providers Care Controller Coal Or Ore Name Role Phone Maria Allen Primary Care [...] (01/13/2023): Added automatically from request for surgery [id number] Family hx of colon cancer 01/13/2023 Overview (01/13/2023): Added automatically from request for surgery [id number] Screening for colon cancer 01/13/2023 Overview (01/13/2023): Added automatically from request for surgery [id number] Hx of adenomatous colonic polyps 01/13/2023 Overview (01/13/2023): Added automatically from request for surgery [id number] Family History Medical History Relation Comments Colon [...] Comments Blood Pressure 123/69 12/20/2023 9:20 AM CODE NUMBER STAMPER Pulse 89 12/20/2023 9:20 AM CODE NUMBER STAMPER Temperature 36.7 ??C (98 ??F) 12/20/2023 7:50 AM CODE NUMBER STAMPER Respiratory Rate 18 12/20/2023 9:20 AM CODE NUMBER STAMPER Oxygen Saturation 97% 12/20/2023 9:20 AM CODE NUMBER STAMPER Inhaled Oxygen Concentration - - Weight 68.5 kg (151 lb) 12/20/2023 7:51 AM CODE NUMBER STAMPER Height 170.2 cm (5' 7 ) 12/20/2023 7:51 AM CODE NUMBER STAMPER Body Mass Index 23.65 12/20/2023 7:51 AM CODE NUMBER STAMPER Plan of Treatment Health Maintenance Due Date Last Done Comments Hepatitis C 1963 DTaP, Tdap and Td Vaccines ( 1 - Tdap) 1965 Annual Medicare Wellness Visit 2011 Dexa Scan (General) 2011 Pneumococcal Vaccine: 65+ Years (1 of 1 - PCV) 2011 RSV Immunization or 60+ Years (1 - 1-dose 75+ series) 2021 PHQ-2 (Physician [facility]) 02/05/2024 02/04/2023 COVID-19 Vaccine ( - 2023-2 5 season) 2024 Influenza Adult (#1) 2024 PHQ-2 (Physician [facility]) 11/01/2024 02/04/2023 Zoster Vaccines Completed 08/24/2022, 06/25/2022 [...] this topic Medical Devices Implanted Type Area Funeral Arrangement Director Device Identifier Shelf Expiration Date Model / Serial / Lot Ocular Lens Implanted:Qty: 1 on 12/20/2023 by Dharmesh Johns MD at [facility] KIRSTY Left: Eye [id number] 11/10/2025 [id number] / [id number] / Procedures Procedure Name Priority Date/Time Associated Diagnosis Comments COLONOSCOPY Routine 01/21/2023 6:58 AM CDT from Last 3 Months or Most Recently Relevant to Health Maintenance Insurance [facility] Care Teams Controller [place] Relationship Specialty Start Date End Date Maria Allen FNP [address] [place] [id number] PCP - General Nurse Practitioner Family 08/08/24
--- OUTSIDE RECORDS SUMMARY | 2024-11-29 14:27 | XMS_ITS | Clinical Summary ---
Author Organization [facility] Address [address] [place] [address] Care Team Providers Care Photo Lab Manager Name Role Phone Fei Esquivel MD Primary Care Provider [phone] Allergies Active Allergy Reactions Criticality Noted Date [...] (10/12/2023): Added automatically from request for surgery [id number] Surgical History Surgery Date Site/Laterality Comments EYE SURGERY CATARACT EXTRACTION Medical History Medical History Date Comments Ankylosing spondylitis (HCC) Neuritis Neuropathy (CMS/HCC) Herpes zoster Social History Tobacco Use Types Packs/Day Years Used Date Smoking Tobacco: Never Smokeless Tobacco: Never Comments Unknown Sex and Gender Information Value Date Recorded Sex Assigned at Not on file Legal Sex Female 10:36 AM CAPACITY MANAGER Gender Identity Not on file Sexual Orientation Not on file Obstetrics History Last Filed Vital Signs Vital Sign Reading Time Taken Comments Blood Pressure 122/64 06/13/2024 1:18 PM CDT Pulse 56 06/13/2024 1:18 PM CDT Temperature - - Respiratory Rate - - Oxygen Saturation 99% 10/12/2023 1:02 PM CAPACITY MANAGER Inhaled Oxygen Concentration - - Weight 68 [...] Completed 08/24/2022, 06/25/2022 Insurance MEDICARE [employer] MEDICARE [facility] MEDICARE [employer]UTIONS MEDICARE [facility] MEDICARE [facility] Care Teams Photo Lab Manager Relationship Specialty Start Date End Date Fei Esquivel MD [address] [place] [id number] PCP - General Family Medicine 09/28/22
[2024-11-29 14:28] LABS: NT Pro B Type Natriuretic Pept 2670 pg/mL (19.9-100); Troponin I < 0.012 ng/mL (0.000-0.034)
--- OUTSIDE RECORDS SUMMARY | 2024-11-29 16:05 | XMS_ITS | Clinical Summary ---
Author Organization [facility] Address [facility] [place] [address] [place] [address] Care Team Providers Care Rag Washer Name Role Phone Maria Allen Primary Care [...] (01/13/2023): Added automatically from request for surgery [id number] Family hx of colon cancer 01/13/2023 Overview (01/13/2023): Added automatically from request for surgery [id number] Screening for colon cancer 01/13/2023 Overview (01/13/2023): Added automatically from request for surgery [id number] Hx of adenomatous colonic polyps 01/13/2023 Overview (01/13/2023): Added automatically from request for surgery [id number] Family History Medical History Relation Comments Colon [...] Comments Blood Pressure 123/69 12/20/2023 9:20 AM CORE MAKER HELPER Pulse 89 12/20/2023 9:20 AM CORE MAKER HELPER Temperature 36.7 ??C (98 ??F) 12/20/2023 7:50 AM CORE MAKER HELPER Respiratory Rate 18 12/20/2023 9:20 AM CORE MAKER HELPER Oxygen Saturation 97% 12/20/2023 9:20 AM CORE MAKER HELPER Inhaled Oxygen Concentration - - Weight 68.5 kg (151 lb) 12/20/2023 7:51 AM CORE MAKER HELPER Height 170.2 cm (5' 7 ) 12/20/2023 7:51 AM CORE MAKER HELPER Body Mass Index 23.65 12/20/2023 7:51 AM CORE MAKER HELPER Plan of Treatment Health Maintenance Due Date Last Done Comments Hepatitis C 1963 DTaP, Tdap and Td Vaccines ( 1 - Tdap) 1965 Annual Medicare Wellness Visit 2011 Dexa Scan (General) 2011 Pneumococcal Vaccine: 65+ Years (1 of 1 - PCV) 2011 RSV Immunization or 60+ Years (1 - 1-dose 75+ series) 2021 PHQ-2 (Physician [facility]) 02/05/2024 02/04/2023 COVID-19 Vaccine ( - 2023-2 5 season) 2024 Influenza Adult (#1) 2024 PHQ-2 (Physician [facility]) 11/01/2024 02/04/2023 Zoster Vaccines Completed 08/24/2022, 06/25/2022 [...] this topic Medical Devices Implanted Type Area Regional Forester Device Identifier Shelf Expiration Date Model / Serial / Lot Ocular Lens Implanted:Qty: 1 on 12/20/2023 by Dharmesh Johns MD at [facility] KIRSTY Left: Eye [id number] 11/10/2025 [id number] / [id number] / Procedures Procedure Name Priority Date/Time Associated Diagnosis Comments COLONOSCOPY Routine 01/21/2023 6:58 AM CDT from Last 3 Months or Most Recently Relevant to Health Maintenance Insurance [facility] Care Teams Rag Washer Relationship Specialty Start Date End Date Maria Allen FNP [address] [place] [id number] PCP - General Nurse Practitioner Family 08/08/24
--- OUTSIDE RECORDS SUMMARY | 2024-11-29 16:05 | XMS_ITS | Clinical Summary ---
Author Organization [facility] Address [address] [place] [address] Care Team Providers Care Swing Ride Operator Name Role Phone Fei Esquivel MD Primary Care Provider [phone] Allergies Active Allergy Reactions Criticality Noted Date [...] (10/12/2023): Added automatically from request for surgery [id number] Surgical History Surgery Date Site/Laterality Comments EYE SURGERY CATARACT EXTRACTION Medical History Medical History Date Comments Ankylosing spondylitis (HCC) Neuritis Neuropathy (CMS/HCC) Herpes zoster Social History Tobacco Use Types Packs/Day Years Used Date Smoking Tobacco: Never Smokeless Tobacco: Never Comments Unknown Sex and Gender Information Value Date Recorded Sex Assigned at Not on file Legal Sex Female 10:36 AM GASTROENTEROLOGY PROFESSOR Gender Identity Not on file Sexual Orientation Not on file Obstetrics History Last Filed Vital Signs Vital Sign Reading Time Taken Comments Blood Pressure 122/64 06/13/2024 1:18 PM CDT Pulse 56 06/13/2024 1:18 PM CDT Temperature - - Respiratory Rate - - Oxygen Saturation 99% 10/12/2023 1:02 PM GASTROENTEROLOGY PROFESSOR Inhaled Oxygen Concentration - - Weight 68 [...] Vaccine Completed 08/24/2022, 06/25/2022 Insurance [facility] Address: [place] [address] MEDICARE [facility] Address: [place] [address] MEDICARE [employer] MEDICARE [employer] MEDICARE [facility] Care Teams Swing Ride Operator Relationship Specialty Start Date End Date Fei Esquivel MD [address] [place] [id number] PCP - General Family Medicine 09/28/22
--- OUTSIDE RECORDS SUMMARY | 2024-11-29 16:05 | XMS_ITS | Referral Summary ---
Author Organization [facility] Address [address] [place] [address] Care Team Providers Care Metal Alloy Scientist Name Role Phone Fei Esquivel MD Primary Care Provider [phone] Allergies Active Allergy Reactions Criticality Noted Date [...] (10/12/2023): Added automatically from request for surgery [id number] Social History Tobacco Use Types Packs/Day Years Used Date Smoking Tobacco: Never Smokeless Tobacco: Never Comments Unknown Sex and Gender Information Value Date Recorded Sex Assigned at Not on file Legal Sex Female 10:36 AM QUALITY CONTROL CHECKER Gender Identity Not on file Sexual Orientation Not on file Last Filed Vital Signs Vital Sign Reading Time Taken Comments Blood Pressure 122/64 06/13/2024 1:18 PM CDT Pulse 56 06/13/2024 1:18 PM CDT Temperature - - Respiratory Rate - - Oxygen Saturation 99% 10/12/2023 1:02 PM QUALITY CONTROL CHECKER Inhaled Oxygen Concentration - - Weight 68 kg (150 lb) 06/13/2024 1:18 PM CDT Height 170.2 cm (5' 7 ) 06/13/2024 1:18 PM CDT Body Mass Index 23.49 06/13/2024 1:18 PM CDT Plan of Treatment Not on file Insurance [employer] MEDICARE SOL[employer]IONS MEDICARE SOLUTIONS Member Subscriber Plan / Payer (Ef fective 2023-Present) Name:Ivet Walton Relation to Subscriber:Self Name:Ivet Walton Payer ID:[id number] (NAIC) Type:[facility] MED[facility] Address: [place] [phone] MEDICARE SOLUTIONS MEDICARE SOLUTIONS Care Teams Metal Alloy Scientist Relationship Specialty Start Date End Date Fei Esquivel MD [address] [place] [id number] PCP - General Family Medicine 09/28/22
--- OUTSIDE RECORDS SUMMARY | 2024-11-29 16:05 | XMS_ITS | Continuity of Care Document ---
Author Organization [facility] Address [address] [address] Phone Care Team Providers Care Guest Room Inspector Name Role Phone Chantal Marie MD Unavailable [...] Encounter OFFICE/OUTPAT IENT VISIT, [facility], [address] [place] [address], [id number], [place] tel:[phone] [place] [facility] No Information 0 Jorge Cornejo. [address] [place] [address], [id number], [place]. tel:[phone] OFFICE/OUTPAT IENT VISIT, [facility], [address] [place] [address], [id number], [place] tel:[phone] [place] [facility] No Information 0 Klippenstei n Chantal. [address] [place] [address], [address], [place], [place], [id number], [place]. tel:[phone] Referring Provider: Quan Prabhakar, [address] [facility] [address], [place], [address]. tel:[phone] [facility], [address] [place], [place] [address], [place], [place], [id number], [place] tel:[phone] [place] [facility] No Information 0-201 0 Klippenstei [employer] Chantal. [address] [place] [address], [address], [place], [place], [id number], [place]. tel:[phone] Referring Provider: Quan Prabhakar, [address] [facility] [address], [place], [address]. tel:[phone] [facility], [address] [place] [address] 100, [place], [place], [id number], [place] tel:[phone] [facility] No Information 0 Nathantei n Chantal. [address] [place] [address], [address], [place], [place], [id number], [place]. tel:[phone] Referring Provider: Quan Prabhakar, [address] [facility] [address], [place], [address]. tel:[phone] [facility], [address] [place] [address] 100, [place], [id number], [place] tel:[phone] [facility] No Information 0 [facility]. [address] [place] [address], [address], [place], [place], [id number]. tel:[phone] Referring Provider: Chantal Syed, [address] [place] [address] [address], [place], [address]. tel:[phone] [facility], [address] [place] [address] 100, [place], [id number], [place] tel:[phone] [facility] No Information 0 Klippenstei [employer] Chantal. [address] [place] [address], [facility] 100, [place], [place], [id number], [place]. tel:[phone] Referring Provider: Quan Prabhakar, [facility] [address], [place], [address]. tel:[phone] [facility], [address] [place] [address] 100, [place], [id number], [place] tel:[phone] [facility] No Information 0 [facility]. [address] [place] [address], [address], [place], [place], [id number]. tel:[phone] Referring Provider: Chantal Syed, [address] [place] [address] 100, [place], [address]. tel:[phone] OFFICE CONSULTATION [facility], [address] [place] [address] 100, [place], [place], [id number], [place] tel:[phone] [facility] No Information 0 Klippenstei n Chantal. [address] [place] [address], [facility] 100, [place], [place], [id number], [place]. tel:[phone] Referring Provider: Quan Prabhakar, [facility] [address] [facility], [place], [address]. tel:[phone] [facility], [address] [place] [address], [place], [id number], [place] tel:[phone] [facility] No Information 0 Louisippenstei n Chantal. [address] [place] [address], [facility] [address], [place], [id number], [place]. tel:[phone] Referring Provider: Quan Prabhakar, [address] [facility] [address], [place], [address]. tel:[phone] Family History Family Member Type Diagnosis Age At Onset No Information Payers Payer name Insurance type Covered constitution party ID Authoryoandy morelos(s) [facility] [id number] Social History Type Description Quantity Date Captured [...]
[2024-11-29 20:51] VITALS: BP 140/57; PULSE 60; RESP 17; O2SAT 100
[2024-11-29 21:21] LABS: Troponin I < 0.012 ng/mL (0.000-0.034)
[2024-11-29 21:31] VITALS: RESP 18; O2SAT 100
[2024-11-29 21:44] LABS: Add Urine Microscopic? YES; Appearance Urine Clear (Clear); Bacteria Urine None Seen /hpf; Bilirubin Urine Negative (Negative); Blood Urine Negative (Negative); Color Urine Yellow (Yellow); Glucose Urine UA Negative (Negative); Ketones Urine Negative (Negative); Leukocyte Esterase Ur 2+ LEU/UL (Negative); Nitrate Urine Negative (Negative); Non Pathogenic Casts 0-2; Protein Urine Negative (Negative); RBC Urine 0-2 /hpf (0-2); Specific Grav Ur 1.014 (1.001-1.035); Squamous Epithelial Cell Urine None Seen /hpf (Few); Urobilinogen Urine 0.2 mg/dL (<2.0); pH Urine 6.5 (5.0-9.0)
[2024-11-29 21:57] VITALS: BP 136/63; PULSE 60; RESP 21; O2SAT 99
[2024-11-29 22:24] LABS: Iron 31 ug/dL (37-170)
[2024-11-29 22:25] LABS: Lactate Dehydrogenase 228 U/L (120-246)
[2024-11-29 22:33] LABS: Transferrin 370 mg/dL (206-381)
[2024-11-29 22:35] LABS: Percent Iron Saturation 6 % (20-50)
[2024-11-29 23:01] LABS: Ferritin 7.67 ng/mL (11.1-264)
[2024-11-29 23:01] LABS: Immature Reticulocyte Fraction 28.2 % (3.0-15.9); Reticulocyte Hemoglobin Conten 24.3 pg (28.2-36.6); Reticulocyte Percent 2.01 % (0.7-4.3); Reticulocytes Absolute 0.05 10^6/uL (0.02-0.10)
--- NOTE | 2024-11-29 23:18 | P.HP_ITS ---
H&P: HPI History of Present Illness Date/Time: 11/29/24 23:18 Chief Complaint: lightheadedness Narrative: This is a 79-year-old female with past medical history significant for atrial fibrillation, rate controlled, anticoagulated, COPD/emphysema, coronary artery disease, congestive heart failure. Patient recently diagnosed with colon polyp unable to be removed by snare patient is planning for surgical removal however was found to have a low hemoglobin. Patient presents to the emergency room for this reason has had lightheadedness, palpitations, fatigue, denies chest pain. Preliminary workup was significant for hemoglobin 6.8. Patient denies any coffee-ground emesis or melena or bright red blood per rectum. EXAMINATION: XR chest 2V DATE: 11/29/2024 14:05 INDICATION: Chest pain and persistent cough TECHNIQUE: PA and lateral views of the chest were obtained. COMPARISON: Chest radiograph dated 06/05/[address] dated 10/10/2024 FINDINGS: Chronic findings reticular opacities at the periphery of the right mid to lower lung and in the left lower lung zone consistent with chronic interstitial lung disease. No new airspace opacities, or pleural effusion or pneumothorax. Mild cardiomegaly. Cholecystectomy clips in right upper quadrant. Thoracic kyphosis with mild anterior wedging of a few lower thoracic vertebral bodies. C4-C7 anterior spinal fusion with plate and screw fixation. Suture anchor at the right humeral head from prior rotator cuff repair. IMPRESSION: 1. Typical appearance of bilateral mild chronic interstitial lung disease with no acute cardiopulmonary disease. 2. Cardiomegaly. Review of Systems Review of Systems: Low hemoglobin, lightheadedness, palpitations, shortness of breath PMFSH Past Medical History Medical History Pulmonary hypertension Preoperative clearance CAD (coronary artery disease) Fibromyalgia Ankylosing spondylitis Cervical osteoarthritis Headache Migraine Congestive heart failure with left ventricular diastolic dysfunction Left shoulder pain Degenerative arthritis of knee, bilateral History of hiatal hernia IBS (irritable bowel syndrome) History of heart attack Headache Arthritis Surgical History Surgical History H/O colonoscopy with polypectomy 01/21/23 Dr. Mark History of rotator cuff surgery History of cataract surgery History of neck surgery History of foot surgery History of hand surgery History of axillary surgery History of tonsillectomy and adenoidectomy Family History Family History Mother Kidney malignancy Father Prostate carcinoma Social History Social History Social History: 08/16/24 very confident with medical forms Smoking packs per day: 0.25 Smoking cigarettes per day: 5.0 Years smoked: 25 Smoking pack-years: 6.25 Smoking status: Former smoker Tobacco type: cigarettes Smoking end date: 11/01/86 Alcohol intake: never Substance use: never Substance use type: does not use Do You Feel Safe in your Home?: Yes Lack of Transportation: No Lack of Food: Never True Current Housing: I Have Housing Concerned About Future Housing: No Difficulty Paying Gas/Electric Bills: No Difficulty Paying for Meds: No Currently Unemployed: No Education: Decline to Answer Difficulty w/ Childcare or Family Care: No Living arrangements: with family Additional living arrangements comments: Occupation/Education: retired Gender identity (if verbalized by the patient): Female Sexual Orientation (if Verbalized by the Patient): Straight or Heterosexual Spiritual care concerns: Yes (Shinto) Meds Home Medications and Allergies Home Medications ?Medication ?Instructions ?Recorded ?Confirmed ?Type valacyclovir 500 mg tablet 500 mg PO BID 10/07/22 11/29/24 History multivitamin 1 tablet PO DAILY 04/06/23 11/29/24 History amiodarone 200 mg tablet 200 mg PO DAILY #90 tabs 07/10/24 11/29/24 Rx amitriptyline 10 mg tablet 10 mg PO QHS #90 tabs 07/10/24 11/29/24 Rx apixaban 5 mg tablet (Eliquis) 5 mg PO BID #180 tabs 07/10/24 11/29/24 Rx furosemide 20 mg tablet 20 mg PO DAILY #90 tabs 07/10/24 11/29/24 Rx metoprolol succinate 25 mg 25 mg PO DAILY #180 tabs 07/10/24 11/29/24 Rx tablet,extended release 24 hr budesonide-formoterol HFA 160 2 puff inhalation Q12H #10.2 grams 09/26/24 11/29/24 Rx mcg-4.5 mcg/actuation aerosol inhaler (Symbicort) albuterol sulfate 90 mcg/actuation 2 inh inhalation Q4H PRN shortness 10/02/24 11/29/24 Rx aerosol inhaler of breath or wheezing #8.5 grams pravastatin 10 mg tablet 10 mg PO DAILY #90 tabs 10/02/24 11/29/24 Rx estradiol 1 mg tablet 1 mg PO DAILY #30 tabs 11/14/24 11/29/24 Rx pantoprazole 40 mg tablet,delayed See Rx Instructions .Route 11/23/24 11/29/24 Rx release .COMPLEX #180 tabs acetaminophen 325 mg capsule 325 mg PO ONCE PRN pain 11/28/24 11/29/24 History (Tylenol) baclofen 10 mg tablet 10 mg PO TID PRN muscle spasm 11/29/24 11/29/24 History benzonatate 100 mg capsule 100 mg PO TID PRN cough 11/29/24 11/29/24 History Allergies Allergy/AdvReac Type Severity Reaction Status Date / Time Opioids - Morphine Analogues Allergy Severe Swelling Verified 11/29/24 23:40 tramadol (From Ultracet) AdvReac Severe Itching Verified 11/29/24 23:40 ubrogepant (From Ubrelvy) AdvReac Severe Headache Verified 11/29/24 23:40 atogepant (From Qulipta) AdvReac Intermediate Headache Verified 11/29/24 23:40 Vital Signs Vital Signs - 24 hr 11/29/24 13:39 11/29/24 20:51 11/29/24 21:31 Temperature 96.9 F L Pulse Rate 72 60 Respiratory Rate 16 17 18 Blood Pressure 111/37 L 140/57 L Pulse Oximetry 100 100 100 Oxygen Delivery Room Air 11/29/24 21:57 Temperature Pulse Rate 60 Respiratory Rate 21 H Blood Pressure 136/63 Pulse Oximetry 99 Oxygen Delivery Exam Narrative: Patient is laying in a stretcher Const: General: comfortable, no acute distress, well developed, alert, awake and average body habitus Nutritional Appearance: average body habitus Orientation/consciousness: patient oriented x3 Other: Generalized pallor HENMT: Head: normal to inspection, normocephalic and atraumatic Ears: hearing grossly normal bilaterally Face/Nose/Sinus: normal facial exam Face and sinus: normal facial exam Eyes: General: appearance normal, both eyes and all related structures Pupils: Equal, round and reactive pupils present EOM: EOMs intact bilaterally Neck: Neck: full ROM, no lymphadenopathy and no JVD Thyroid: thyroid normal Lymphatic: no lymphadenopathy noted Resp: Effort & Inspection: normal respiratory effort and able to speak in complete sentences Auscultation: clear to auscultation bilaterally Cardio: Jugular venous distension: no JVD Rate: regular rate Rhythm: regular rhythm Heart sounds: S1 normal heart sound present, S2 normal heart sound present and Murmur heart sound present GI: GI Palp: Yes Soft to palpation and Yes No hepatosplenomegaly present : General: Yes deferred Skin: Rashes: no rashes Wounds: no wounds Neuro: General: patient oriented x3 and CN's II-XI intact bilaterally Cranial nerves: Yes CN's II-XII intact bilaterally and Yes Equal, round and reactive pupils present Cognition (Neuro): normal cognition Speech: normal speech Gait exam (Neuro): Normal gait present Motor exam (neuro): 5/5 motor strength present throughout Extrem: General: normal to inspection, full ROM, no joint enlargement and no pedal edema H&P: Results Labs Labs: Short CBC 11/29/24 Range/Units 13:45 WBC 6.0 (4.5-10.0) K/mm3 Hgb 7.3 L (12.0-15.0) g/dL Hct 24.9 L (37.0-47.0) % Plt Count 312 (150-375) k/mm3 BMP 11/29/24 13:45 Sodium 137 Potassium 4.5 Chloride 103 Carbon Dioxide 24 BUN 22 H Creatinine 0.99 Glucose 85 Calcium 8.5 Cardiac Enzymes 11/29/24 11/29/24 Range/Units 13:45 20:54 Troponin I < 0.012 < 0.012 (0.000-0.034) ng/mL Liver Function 11/29/24 Range/Units 13:45 Total Bilirubin 0.4 (0.2-1.3) mg/dL AST 42 H (14-36) U/L ALT 29 (6-35) U/L Alkaline Phosphatase 117 (38-126) U/L Albumin 4.0 (3.5-5.1) g/dL Urine 11/29/24 Range/Units 21:27 Urine Color Yellow (Yellow) Urine Appearance Clear (Clear) Urine pH 6.5 (5.0-9.0) Ur Specific [place] 1.014 (1.001-1.035) Urine Protein Negative (Negative) mg/dL Urine Glucose (UA) Negative (Negative) mg/dL Assessment and Plan Assessment and plan (1) Anemia: Code(s): D64.9 - Anemia, unspecified Status: Acute Assessment and Plan: Admit to IMU Transfuse as needed H&H serially Hold apixaban (2) Congestive heart failure with left ventricular diastolic dysfunction: Code(s): I50.30 - Unspecified diastolic (congestive) heart failure Status: Acute Assessment and Plan: Patient appears euvolemic (3) Pulmonary hypertension: Code(s): I27.20 - Pulmonary hypertension, unspecified Status: Acute Assessment and Plan: On room air (4) Aortic regurgitation: Code(s): I35.1 - Nonrheumatic aortic (valve) insufficiency Status: Acute Assessment and Plan: Continue to monitor (5) CAD (coronary artery disease): Code(s): I25.10 - Atherosclerotic heart disease of [place] coronary artery without angina pectoris Status: Chronic Assessment and Plan: Chest pain-free (6) PAF (paroxysmal atrial fibrillation): Code(s): I48.0 - Paroxysmal atrial fibrillation Status: Acute Assessment and Plan: Continue amiodarone (7) GERD (gastroesophageal reflux disease): Qualifiers: Esophagitis presence: without esophagitis Qualified Code(s): K21.9 - Gastro-esophageal reflux disease without esophagitis Code(s): K21.9 - Gastro-esophageal reflux disease without esophagitis Status: Acute Assessment and Plan: PPI (8) Colon polyp: Code(s): K63.5 - Polyp of colon Status: Acute Assessment and Plan: Will be surgically removed (9) Ankylosing spondylitis: Code(s): M45.9 - Ankylosing spondylitis of unspecified sites in spine Status: Acute Assessment and Plan: Unchanged Hospitalist MIPS Advance Care Plan I have confirmed that the patient's Advanced Care Plan is present, code status is documented, or surrogate decision maker is listed in patient medical record.: Yes Medication Reconciliation I have utilized all available resources to obtain, update and review the pa tients current medications (includes all prescriptions, OTC, herbals, cannabis, and nutritional supplements).: Yes
[2024-11-29 23:19] VITALS: BP 131/53; PULSE 56; RESP 18; O2SAT 96
[2024-11-29 23:30] VITALS: BP 109/55; PULSE 62; RESP 18; TEMP 36.8; O2SAT 100; BMI 25.1
[2024-11-29 23:36] LABS: Folic Acid > 20.0 ng/mL (2.76->20)
[2024-11-29 23:38] VITALS: BMI 25.1
[2024-11-29 23:41] LABS: Hematocrit 22.6 % (37.0-47.0)
[2024-11-29 23:44] LABS: Hemoglobin 6.8 g/dL (12.0-15.0)
[2024-11-30] VITALS (23 sets, daily range): BP systolic 109–146; BP diastolic 32–69; PULSE 58–74; RESP 16–20; TEMP 36–37.3; O2SAT 96–100
[2024-11-30 00:53] LABS: Troponin I < 0.012 ng/mL (0.000-0.034)
[2024-11-30] MEDS: TUBING, BLOOD PLUM PUMP TUBING 1 EACH XX (02:39)
[2024-11-30] MEDS: SODIUM CHLORIDE 0.9% IV 250 ML 30 ML IV CONT (02:39)
[2024-11-30 07:52] LABS: Hematocrit 25.9 % (37.0-47.0)
[2024-11-30] MEDS: AMIODARONE HCL 200 MG TABLET PO (08:03)
[2024-11-30] MEDS: PANTOPRAZOLE 40 MG TABLET BY MOUTH ×2 (08:03→21:31)
[2024-11-30] MEDS: valACYclovir HCL 500 MG TABLET PO ×2 (08:04→21:30)
[2024-11-30] MEDS: PRAVASTATIN SODIUM 10 MG TABLET PO (08:04)
[2024-11-30] MEDS: estradioL 1 MG TABLET PO (08:04)
--- NOTE | 2024-11-30 08:05 | P.CONGI_ITS ---
Assessment and Plan Assessment and plan (1) Adenomatous polyp of transverse colon: Code(s): D12.3 - Benign neoplasm of transverse colon Status: Acute (2) HARRIETT (iron deficiency anemia): Qualifiers: Iron deficiency anemia type: chronic blood loss Qualified Code(s): D 50.0 - Iron deficiency anemia secondary to blood loss (chronic) Code(s): D50.9 - Iron deficiency anemia, unspecified Status: Acute Plan 1. HARRIETT/tubular adenomatous colon polyp in the transverse colon: EGD and colonoscopy 10/15/2024 with no signs of active GI bleeding. EGD did show a hiatal hernia and mild diffuse chronic superficial gastritis. Colonoscopy revealed a 30 mm tubular adenomatous colon polyp in the transverse colon. Given the difficult location and Elavil it in a to remove polyp the patient was tattooed and referred to surgery for elective colon resection. Patient is scheduled for laparoscopic colectomy with Dr. Miranda next week. Prior to admission labs show HGB 6.8. Patient received 1 unit PRBCs and labs today show HGB 8, HCT 26, MCV 83, platelets 312, INR 1.4. Haptoglobin pending, B12 and folate normal. Total iron 31, TIBC 502, iron saturation 6, ferritin 7.67. Patient denies any signs of active GI bleeding to include hematemesis, hematochezia, or melena. with the use of MiraLax as needed the patient is having regular formed bowel movements. * No indication for endoscopic evaluation at this time * Patient will need to proceed with planned elective colectomy * If anemia still present after surgery may consider small bowel capsule endoscopy, but this cannot be completed prior to surgery as there is a high risk for capsule retention * primary care team to continue monitoring H&H and transfuse as needed to keep HGB > 7 * Consider IV iron * Consider surgical consult for recommendations on what may be required for stabilization prior to surgery Thank you very much for allowing me to share in the care of this very nice patient. This report may have been done utilizing a voice recognition system. Attempts have been made to correct errors. However, there may be uncorrected grammatical, spelling, and recognition errors present. GI Consult Note Consult date/time: 11/30/24 08:05 Reason for consult: Anemia HPI: This is a pleasant 79 year old female with a past medical surgical history of HLD, CAD, CHF, GERD, ankylosing spondylitis, IBS, migraines, and colon polyps. Patient presented to the ER after having labs performed following a pulmonary appointment yesterday which showed Hgb 6.8 along with complaints for SOB and chest pain. GI has been consulted for anemia. Patient was recently seen in the office by myself for GERD, cough, dysphagia, constipation and anemia. Patient had an EGD and colonoscopy 10/18/2024 at which time she was noted to have a 30 mm polyp in the transverse colon that was unable to be resected due to it being in a difficult area and she was referred for elective surgical resection. She is scheduled for a laparoscopic colectomy with Dr. Miranda next week who attempted to get the patient transfused prior to surgery but there was no openings available prior to her surgery. Patient was seen in the office with KASSANDRA Randall and was complaining of SOB and chest pain, labs were obtained and showed her Hgb @ 6.8 at which time she was advised to proceed to the ER. Patient states that the only GI changes she has had since her last visit was a change in bowel habits after her colonoscopy. She states that she was having BM's that were varying from loose to constipation. Since she started using Miralax every 2-3 as needed she is having regular formed BM's, last BM this morning. Denies abdominal pain, nausea, vomiting, bloating, odynophagia, dysphagia, reflux, regurgitation, appetite loss, weight loss, hematochezia, melena, fecal incontinence, or rectal pain. ENDOSCOPY HISTORY: EGD: 10/18/[address] You for GERD Findings: A medium hiatal hernia without obstruction was found at the GE junction. The hiatal hernia appeared at a depth of 34 cm from the incisors. The hiatal narrowing was 38 cm from the incisors. The GE junction was 34 cm from the incisors. Mild diffuse chronic superficial gastritis was seen in the body of the stomach and in the antrum. The gastritis had erythematous and nonerosive changes. The bulb and second portion of duodenum was normal with no ulcers or masses. Multiple cold forceps biopsies were taken from the distal esophagus, body and antrum for pathology Bx Results: A. Esophagus, biopsies: - Chronic reflux esophagitis - No eosinophilic infiltrate identified. B. Gastric antrum, biopsies: - Chronic reactive gastritis without intestinal metaplasia - No histologic evidence of Helicobacter organisms noted. C. Gastric body, biopsies: - Mild chronic reactive gastritis without intestinal metaplasia - Mild reactive atypia noted in the gastric pits - Focal fundic gland dilatation noted. - No evidence of Helicobacter organisms noted EGD: 01/21/[address] Mark Findings: Upper middle and distal esophagus was torturous but looked normal. GE junction was identified at about 33 cm and there was mild reflux, biopsies taken. Upon entering stomach there was a 4 cm hiatal hernia. Stomach distended well. Retroflexion views of the cardia fundus and angularis revealed no abnormalities. Antrum contained a 1.5 cm nodule which looked benign and was biopsied. First and 2nd portion of the duodenum looked normal. COLONOSCOPY: 10/18/[address] You for Hx of colon polyps Findings: There was a single 30 mm sessile polyp observed in the transverse colon. The appearance seemed pre malignant in nature with some depressed areas. Polyp is located in the very twisted area of the transverse colon and adequate stability of the scope could not be achieved to safely snare the polyp entirely. Biopsies taken from polyp for pathology and 1 ml of anthony ink injected 2 cm distal to the polyp in 2 sites for future identification during surgery. A few medium size uncomplicated internal hemorrhoids were seen in the rectum Bx Results: Transverse colon polyp, polypectomy: - Tubular adenoma COLONOSCOPY: 01/21/[address] Mark for personal history of colon polyps Findings: sigmoid colon polyp removed torturous colon unable to reach cecum LABS AND STOOL STUDIES: Labs 11/29/2024: Sodium 137, potassium 4.5, BUN 22, creatinine 0.99, GFR 54 WBCs 6, HGB 7, HCT 23, MCV 83, platelets 312, INR 1.4 Total bilirubin 0.4, AST 41, ALT 29, alkaline phosphatase 117, albumin 4.0 Calcium 8.5, lactate dehydrogenase 228, lipase 61, TSH 4.940, troponin negative x3 and BNP 2670 Total iron 31, TIBC 502, iron saturation 6%, ferritin 7.67, B12 478, folate > 20, retic % 2.01, haptoglobin pending IMAGING: CT chest/neck 10/11/2024 Impression: Pulmonary findings compatible with mild chronic interstitial disease and/or possibly mild interstitial edema. Correlate clinically. Review of Systems 2 Constitutional: Constitutional: Reports as per HPI ENT: Reports as per HPI Cardiovascular: Cardiovascular: Reports as per HPI, Denies chest pain and Denies dyspnea Respiratory: Respiratory: Denies cough and Denies dyspnea Gastrointestinal: Gastrointestinal: Reports as per HPI Musculoskeletal: Musculoskeletal: Reports as per HPI Integumentary/Breasts: Skin/Breast: Reports as per HPI Psychiatric: Psychiatric: Reports as per HPI Endocrine: Endocrine: Reports no additional endocrine complaints Hematologic/Lymphatic: Hematologic/Lymphatic: Reports no additional hematologic/lymphatic complaints [facility] Past Medical History Medical History Pulmonary hypertension Preoperative clearance CAD (coronary artery disease) Fibromyalgia Ankylosing spondylitis Cervical osteoarthritis Headache Migraine Congestive heart failure with left ventricular diastolic dysfunction Left shoulder pain Degenerative arthritis of knee, bilateral History of hiatal hernia IBS (irritable bowel syndrome) History of heart attack Headache Arthritis Surgical History Surgical History H/O colonoscopy with polypectomy 01/21/23 Dr. Mark History of rotator cuff surgery History of cataract surgery History of neck surgery History of foot surgery History of hand surgery History of axillary surgery History of tonsillectomy and adenoidectomy Family History Family History Mother Kidney malignancy Father Prostate carcinoma Social History Social History Social History: 08/16/24 very confident with medical forms Smoking packs per day: 0.25 Smoking cigarettes per day: 5.0 Years smoked: 25 Smoking pack-years: 6.25 Smoking status: Former smoker Tobacco type: cigarettes Smoking end date: 11/01/86 Alcohol intake: never Substance use: never Substance use type: does not use Do You Feel Safe in your Home?: Yes Lack of Transportation: No Lack of Food: Never True Current Housing: I Have Housing Concerned About Future Housing: No Difficulty Paying Gas/Electric Bills: No Difficulty Paying for Meds: No Currently Unemployed: No Education: Decline to Answer Difficulty w/ Childcare or Family Care: No Living arrangements: with family Additional living arrangements comments: Occupation/Education: retired Gender identity (if verbalized by the patient): Female Sexual Orientation (if Verbalized by the Patient): Straight or Heterosexual Spiritual care concerns: Yes (Caodaism) Meds Home Medications and Allergies Home Medications ?Medication ?Instructions ?Recorded ?Confirmed ?Type valacyclovir 500 mg tablet 500 mg PO BID 10/07/22 11/29/24 History multivitamin 1 tablet PO DAILY 04/06/23 11/29/24 History amiodarone 200 mg tablet 200 mg PO DAILY #90 tabs 07/10/24 11/29/24 Rx amitriptyline 10 mg tablet 10 mg PO QHS #90 tabs 07/10/24 11/29/24 Rx apixaban 5 mg tablet (Eliquis) 5 mg PO BID #180 tabs 07/10/24 11/29/24 Rx furosemide 20 mg tablet 20 mg PO DAILY #90 tabs 07/10/24 11/29/24 Rx metoprolol succinate 25 mg 25 mg PO DAILY #180 tabs 07/10/24 11/29/24 Rx tablet,extended release 24 hr budesonide-formoterol HFA 160 2 puff inhalation Q12H #10.2 grams 09/26/24 11/29/24 Rx mcg-4.5 mcg/actuation aerosol inhaler (Symbicort) albuterol sulfate 90 mcg/actuation 2 inh inhalation Q4H PRN shortness 10/02/24 11/29/24 Rx aerosol inhaler of breath or wheezing #8.5 grams pravastatin 10 mg tablet 10 mg PO DAILY #90 tabs 10/02/24 11/29/24 Rx estradiol 1 mg tablet 1 mg PO DAILY #30 tabs 11/14/24 11/29/24 Rx pantoprazole 40 mg tablet,delayed See Rx Instructions .Route 11/23/24 11/29/24 Rx release .COMPLEX #180 tabs acetaminophen 325 mg capsule 325 mg PO ONCE PRN pain 11/28/24 11/29/24 History (Tylenol) baclofen 10 mg tablet 10 mg PO TID PRN muscle spasm 11/29/24 11/29/24 History benzonatate 100 mg capsule 100 mg PO TID PRN cough 11/29/24 11/29/24 History Allergies Allergy/AdvReac Type Severity Reaction Status Date / Time Opioids - Morphine Analogues Allergy Severe Swelling Verified 11/29/24 23:40 tramadol (From Ultracet) AdvReac Severe Itching Verified 11/29/24 23:40 ubrogepant (From Ubrelvy) AdvReac Severe Headache Verified 11/29/24 23:40 atogepant (From Qulipta) AdvReac Intermediate Headache Verified 11/29/24 23:40 Vital Signs Vital Signs - 24 hr 11/29/24 13:39 11/29/24 20:51 11/29/24 21:31 Temperature 96.9 F L Pulse Rate 72 60 Respiratory Rate 16 17 18 Blood Pressure 111/37 L 140/57 L Pulse Oximetry 100 100 100 Oxygen Delivery Room Air 11/29/24 21:57 11/29/24 23:19 11/29/24 23:30 Temperature 98.2 F Pulse Rate 60 56 L 62 Respiratory Rate 21 H 18 18 Blood Pressure 136/63 131/53 L 109/55 L Pulse Oximetry 99 96 100 Oxygen Delivery 11/30/24 00:00 11/30/24 00:00 11/30/24 00:00 Temperature 98.2 F Pulse Rate 59 L 62 Respiratory Rate 18 Blood Pressure 109/55 L Pulse Oximetry 100 Oxygen Delivery Room Air 11/30/24 02:00 11/30/24 02:45 11/30/24 03:03 Temperature 97.9 F 97.9 F Pulse Rate 60 60 59 L Respiratory Rate 16 16 Blood Pressure 109/40 L 111/32 L Pulse Oximetry 98 98 Oxygen Delivery 11/30/24 04:00 11/30/24 04:00 11/30/24 04:00 Temperature 98.0 F Pulse Rate 60 61 Respiratory Rate 16 Blood Pressure 120/66 Pulse Oximetry 97 Oxygen Delivery Room Air 11/30/24 04:03 11/30/24 05:03 11/30/24 05:40 Temperature 98.0 F 98.0 F 97.9 F Pulse Rate 60 58 L 65 Respiratory Rate 16 16 16 Blood Pressure 120/66 123/44 L 129/43 L Pulse Oximetry 97 98 98 Oxygen Delivery 11/30/24 06:00 11/30/24 08:03 Temperature 98.8 F Pulse Rate 65 63 Respiratory Rate 16 Blood Pressure 132/45 L Pulse Oximetry 98 Oxygen Delivery Exam 2 Const: General: cooperative, healthy appearing, comfortable, no acute distress and well developed Orientation/consciousness: oriented to person, oriented to place, oriented to time and patient oriented x3 HENMT: Head: normal to inspection, normocephalic and atraumatic Mouth: Yes Normal oral and palatal mucosa present and Yes moist mucous membranes Eyes: General: appearance normal, both eyes and all related structures C onjunctivae: conjunctivae normal Sclera: sclerae normal Pupils: Equal, round and reactive pupils present Neck: Neck: normal visual inspection Chest: Chest palpation & inspection: normal inspection of the chest Resp: Effort & Inspection: normal respiratory effort and able to speak in complete sentences Auscultation: clear to auscultation bilaterally Cardio: Jugular venous distension: no JVD Rate: regular rate Rhythm: r egular rhythm Heart sounds: S1 normal heart sound present and S2 normal heart sound present GI: Inspection: normal to inspection GI Palp: Yes Soft to palpation and Yes No hepatosplenomegaly present Auscultation: normal bowel sounds Rectal Exam: deferred Skin: General skin exam: normal color and no rashes or lesions noted Neuro: General: oriented to person, oriented to place, oriented to time and patient oriented x3 Cranial nerves: Yes Equal, round and reactive pupils present Speech: normal speech Extrem: General: normal to inspection and no clubbing, cyanosis or edema Psych: Appearance: grossly normal and well kempt Affect: normal affect Results Labs 11/30/24 07:47 11/29/24 13:45 Labs: Short CBC 11/29/24 11/29/24 11/30/24 Range/Units 13:45 22:46 07:47 WBC 6.0 (4.5-10.0) K/mm3 Hgb 7.3 L 6.8 L* 8.0 L (12.0-15.0) g/dL Hct 24.9 L 22.6 L 25.9 L (37.0-47.0) % Plt Count 312 (150-375) k/mm3 BMP 11/29/24 13:45 Sodium 137 Potassium 4.5 Chloride 103 Carbon Dioxide 24 BUN 22 H Creatinine 0.99 Glucose 85 Calcium 8.5 Cardiac Enzymes 11/29/24 11/29/24 11/30/24 Range/Units 13:45 20:54 00:27 Troponin I < 0.012 < 0.012 < 0.012 (0.000-0.034) ng/mL Liver Function 11/29/24 Range/Units 13:45 Total Bilirubin 0.4 (0.2-1.3) mg/dL AST 42 H (14-36) U/L ALT 29 (6-35) U/L Alkaline Phosphatase 117 (38-126) U/L Albumin 4.0 (3.5-5.1) g/dL Urine 11/29/24 Range/Units 21:27 Urine Color Yellow (Yellow) Urine Appearance Clear (Clear) Urine pH 6.5 (5.0-9.0) Ur Specific [place] 1.014 (1.001-1.035) Urine Protein Negative (Negative) mg/dL Urine Glucose (UA) Negative (Negative) mg/dL
[2024-11-30] MEDS: FLUTICASONE/SALMETEROL 115-21 MCG INHALER 1 PUFF 2 PUFF INHALATION ×2 (08:54→19:53)
[2024-11-30 11:16] LABS: Free T4 Free Thyroxine Reflex 1.37 ng/dL (0.78-2.19)
[2024-11-30 12:01] LABS: Total Triiodothyronine (T3) 1.28 NG/ML (0.97-1.69)
[2024-11-30 13:34] LABS: Hematocrit 27.8 % (37.0-47.0); Hemoglobin 8.5 g/dL (12.0-15.0)
--- NOTE | 2024-11-30 13:46 | PM.IMPN ---
Progress Note: A&P Assessment and Plan (1) Anemia: Code(s): D64.9 - Anemia, unspecified Status: Acute Assessment and Plan: Patient presents with lightheadedness and known anemia. She states Hgb has been low earlier this month to 6.2. Here, Hgb was 7.3. She was guaiac negative. She was iron deficient with TIBC 502, iron 31 with iron sat at 6% and ferritin at 7.7. B12/foalte normal. Repeat Hgb dropped to 6.8 and she received 1U PRBC. She tolerated this well. Apixiban on hold. Check serial HH. Spoke with GenSurg but they did not feel necessary for patient to have partial colon resection done at this time. Source of iron deficiency either is unclear. Consider dietary, chronic blood loss (could be GI blood loss if intermittent), celiac and/or PPI treatment Start IV iron. Check stool for occult blood. Continue H&H serially and transfuse to stable Hgb. Check celiac panel. (2) Congestive heart failure with left ventricular diastolic dysfunction: Code(s): I50.30 - Unspecified diastolic (congestive) heart failure Status: Acute Assessment and Plan: Patient has a hx of CHF. Echo 11/24/24 showing EF 60-65% with grade IV diastolic dysfunction and mild-mod MR. Clinically euvolemic Follow (3) Pulmonary hypertension: Code(s): I27.20 - Pulmonary hypertension, unspecified Status: Acute Assessment and Plan: Echo also showed severe pHTN with PASP 61mmHg, mod-severe TR and trace pulmonic regurg. Normal appearing RV. CXR showing ILD. Remains on room air. Follow (4) PAF (paroxysmal atrial fibrillation): Code(s): I48.0 - Paroxysmal atrial fibrillation Status: Acute Assessment and Plan: Stable. EKG showing sinus bradycardia (56) with 1st degree AVB. On Amio for rate and rhythm control. Continue amiodarone. Eliquis on hold. (5) GERD (gastroesophageal reflux disease): Qualifiers: Esophagitis presence: without esophagitis Qualified Code(s): K21.9 - Gastro-esophageal reflux disease without esophagitis Code(s): K21.9 - Gastro-esophageal reflux disease without esophagitis Status: Acute Assessment and Plan: PPI (6) Colon polyp: Code(s): K63.5 - Polyp of colon Status: Acute Assessment and Plan: As above. Discussed with surgery. Plans for surgical resection as outpatient (7) Ankylosing spondylitis: Code(s): M45.9 - Ankylosing spondylitis of unspecified sites in spine Status: Acute Assessment and Plan: Stable Plan UA noted. UCx collected. Follow up on UCx results. Abx on hold. DVT Prophylaxis - SCDs Code status - Full Subjective Date/time seen: 11/30/24 13:46 Interval history: 79yo female with pHTN, CAD, CHF and known large colonic polyp here for lightheadedness. She tolerated the transfusion earlier this morning. Slept poorly overnight. She does feel better. Last dose of Eliquis was 11/29 in the morning. Exam Narrative: AF 99.1 111/51 73 18 98% ra Gen - NARD Chest - CTA bilaterally, nml RR CV - RRR S1/S2. Tele showing PVCs Abd - Soft, NT/ND, Positive BS Ext - No pedal edema Psych - Nml mood and affect Skin - Warm and dry Objective Data Vital Signs Vital Signs: Vital Signs - 24 hr 11/29/24 20:51 11/29/24 21:31 11/29/24 21:57 Temperature Pulse Rate 60 60 Respiratory Rate 17 18 21 H Blood Pressure 140/57 L 136/63 Pulse Oximetry 100 100 99 Oxygen Delivery 11/29/24 23:19 11/29/24 23:30 11/30/24 00:00 Temperature 98.2 F Pulse Rate 56 L 62 Respiratory Rate 18 18 Blood Pressure 131/53 L 109/55 L Pulse Oximetry 96 100 Oxygen Delivery Room Air 11/30/24 00:00 11/30/24 00:00 11/30/24 02:00 Temperature 98.2 F Pulse Rate 59 L 62 60 Respiratory Rate 18 Blood Pressure 109/55 L Pulse Oximetry 100 Oxygen Delivery 11/30/24 02:45 11/30/24 03:03 11/30/24 04:00 Temperature 97.9 F 97.9 F 98.0 F Pulse Rate 60 59 L 60 Respiratory Rate 16 16 16 Blood Pressure 109/40 L 111/32 L 120/66 Pulse Oximetry 98 98 97 Oxygen Delivery 11/30/24 04:00 11/30/24 04:00 11/30/24 04:03 Temperature 98.0 F Pulse Rate 61 60 Respiratory Rate 16 Blood Pressure 120/66 Pulse Oximetry 97 Oxygen Delivery Room Air 11/30/24 05:03 11/30/24 05:40 11/30/24 06:00 Temperature 98.0 F 97.9 F Pulse Rate 58 L 65 65 Respiratory Rate 16 16 Blood Pressure 123/44 L 129/43 L Pulse Oximetry 98 98 Oxygen Delivery 11/30/24 08:00 11/30/24 08:00 11/30/24 08:03 Temperature 98.8 F Pulse Rate 71 71 63 Respiratory Rate 16 Blood Pressure 132/45 L Pulse Oximetry 98 98 Oxygen Delivery Room Air 11/30/24 08:03 11/30/24 08:54 11/30/24 10:00 Temperature Pulse Rate 71 69 63 Respiratory Rate 20 Blood Pressure Pulse Oximetry Oxygen Delivery 11/30/24 11:17 11/30/24 12:00 11/30/24 12:00 Temperature 99.1 F Pulse Rate 66 71 73 Respiratory Rate 18 Blood Pressure 111/51 L Pulse Oximetry 99 98 Oxygen Delivery Room Air Intake/Output Intake/Output: Intake & Output 11/27/24 11/28/24 11/29/24 11/30/24 23:59 23:59 23:59 23:59 Intake Total 590 Balance 590 Meds/Results Medications: Active Medications Generic Name Dose Route Start Last Admin Trade Name Freq PRN Reason Stop Dose Admin Acetaminophen 325 mg 11/30/24 01:45 Acetaminophen 325 Mg Tablet PO ONCE PRN pain 1-3 Albuterol 2 puff 11/30/24 01:45 Albuterol Sulfate (*Sp) Aerosol 1 Puff INHALATION Q4HRT PRN shortness of breath or wheezing Amiodarone HCl 200 mg 11/30/24 09:00 11/30/24 08:03 Amiodarone Hcl 200 Mg Tablet PO 200 mg DAILY YUSEF Administration Amitriptyline HCl 10 mg 11/30/24 21:00 Amitriptyline Hcl 10 Mg Tablet PO QHS YUSEF Baclofen 10 mg 11/30/24 01:45 Baclofen 10 Mg Tablet PO TID PRN muscle spasm Benzonatate 100 mg 11/30/24 01:45 Benzonatate 100 Mg Capsule PO TID PRN cough Estradiol 1 mg 11/30/24 09:00 11/30/24 08:04 Estradiol 1 Mg Tablet PO 1 mg DAILY YUSEF Administration Pantoprazole Sodium 40 mg 11/30/24 09:00 11/30/24 08:03 Pantoprazole 40 Mg Tablet BY MOUTH 40 mg Q12HR YUSEF Administration Pravastatin Sodium 10 mg 11/30/24 09:00 11/30/24 08:04 Pravastatin Sodium 10 Mg Tablet PO 10 mg DAILY YUSEF Administration Fluticasone/Salmeterol 2 puff 11/30/24 08:00 11/30/24 08:54 Fluticasone/Salmeterol 115-21 Mcg Inhaler 1 Puff INHALATION 2 puff Q12HRT YUSEF Administration Valacyclovir HCl 500 mg 11/30/24 09:00 11/30/24 08:04 Valacyclovir Hcl 500 Mg Tablet PO 500 mg Q12HR YUSEF Administration Radiology Results: ITS Impressions Chest X-Ray 11/29/24 14:12 IMPRESSION: 1. Typical appearance of bilateral mild chronic interstitial lung disease with no acute cardiopulmonary disease. 2. Cardiomegaly. Labs Labs: Laboratory Results - last 24 hr 11/29/24 11/29/24 11/29/24 13:45 20:54 21:27 WBC 6.0 RBC 2.99 L Hgb 7.3 L Hct 24.9 L MCV 83.3 MCH 24.4 L MCHC 29.3 L RDW 16.5 H Plt Count 312 MPV 10.5 H Immature Gran % (Auto) 0.2 Neut % (Auto) 43.5 L Lymph % (Auto) 39.6 [place] % (Auto) 12.2 H Eos % (Auto) 3.0 Baso % (Auto) 1.5 H Lymph # (Auto) 2.37 [place] # (Auto) 0.7 H Eos # (Auto) 0.2 Baso # (Auto) 0.1 Abs Immat Gran (auto) 0.01 Absolute Neuts (auto) 2.6 Absolute Nucleated RBC 0.000 Nucleated RBC % 0.0 Platelet Estimate Adequate Polychromasia 1+ Hypochromasia 2+ Anisocytosis 1+ Ovalocytes 1+ Schistocytes None seen Absolute Retic Percent Retic Immature Retic Fraction Retic Hgb Content PT 17.8 H INR 1.4 APTT 37.3 H Sodium 137 Potassium 4.5 Chloride 103 Carbon Dioxide 24 Anion Gap 10 BUN 22 H Creatinine 0.99 Estim Creat Clear Calc 40 Estimated GFR 54 L Glucose 85 Calcium 8.5 Iron 31 L TIBC 502 H % Saturation 6 L Transferrin 370 Ferritin 7.67 L Total Bilirubin 0.4 AST 42 H ALT 29 Alkaline Phosphatase 117 Lactate Dehydrogenase 228 Troponin I < 0.012 < 0.012 NT-Pro-B Natriuret Pep 2670 H Total Protein 7.0 Albumin 4.0 Lipase 61 Vitamin B12 478.0 Folate > 20.0 H TSH (Reflex) 4.940 H Free T4 1.37 Total T3 1.28 Urine Color Yellow Urine Appearance Clear Urine pH 6.5 Ur Specific [place] 1.014 Urine Protein Negative Urine Glucose (UA) Negative Urine Ketones Negative Ur Blood (Man) Negative Urine Nitrate Negative Urine Bilirubin Negative Urine Urobilinogen 0.2 Leukocyte Esterase Rfl 2+ H Urine RBC 0-2 Urine WBC 11-20 H Ur Squamous Epith Cells None seen Urine Bacteria None seen Urine Casts 0-2 Blood Type A Positive Antibody Screen Negative Crossmatch See Detail 11/29/24 11/30/24 11/30/24 22:46 00:27 07:47 WBC RBC Hgb 6.8 L* 8.0 L Hct 22.6 L 25.9 L MCV MCH MCHC RDW Plt Count MPV Immature Gran % (Auto) Neut % (Auto) Lymph % (Auto) [place] % (Auto) Eos % (Auto) Baso % (Auto) Lymph # (Auto) [place] # (Auto) Eos # (Auto) Baso # (Auto) Abs Immat Gran (auto) Absolute Neuts (auto) Absolute Nucleated RBC Nucleated RBC % Platelet Estimate Polychromasia Hypochromasia Anisocytosis Ovalocytes Schistocytes Absolute Retic 0.05 Percent Retic 2.01 Immature Retic Fraction 28.2 H Retic Hgb Content 24.3 L PT INR APTT Sodium Potassium Chloride Carbon Dioxide Anion Gap BUN Creatinine Estim Creat Clear Calc Estimated GFR Glucose Calcium Iron TIBC % Saturation Transferrin Ferritin Total Bilirubin AST ALT Alkaline Phosphatase Lactate Dehydrogenase Troponin I < 0.012 NT-Pro-B Natriuret Pep Total Protein Albumin Lipase Vitamin B12 Folate TSH (Reflex) Free T4 Total T3 Urine Color Urine Appearance Urine pH Ur Specific [place] Urine Protein Urine Glucose (UA) Urine Ketones Ur Blood (Man) Urine Nitrate Urine Bilirubin Urine Urobilinogen Leukocyte Esterase Rfl Urine RBC Urine WBC Ur Squamous Epith Cells Urine Bacteria Urine Casts Blood Type Antibody Screen Crossmatch 11/30/24 13:29 WBC RBC Hgb 8.5 L Hct 27.8 L MCV MCH MCHC RDW Plt Count MPV Immature Gran % (Auto) Neut % (Auto) Lymph % (Auto) [place] % (Auto) Eos % (Auto) Baso % (Auto) Lymph # (Auto) [place] # (Auto) Eos # (Auto) Baso # (Auto) Abs Immat Gran (auto) Absolute Neuts (auto) Absolute Nucleated RBC Nucleated RBC % Platelet Estimate Polychromasia Hypochromasia Anisocytosis Ovalocytes Schistocytes Absolute Retic Percent Retic Immature Retic Fraction Retic Hgb Content PT INR APTT Sodium Potassium Chloride Carbon Dioxide Anion Gap BUN Creatinine Estim Creat Clear Calc Estimated GFR Glucose Calcium Iron TIBC % Saturation Transferrin Ferritin Total Bilirubin AST ALT Alkaline Phosphatase Lactate Dehydrogenase Troponin I NT-Pro-B Natriuret Pep Total Protein Albumin Lipase Vitamin B12 Folate TSH (Reflex) Free T4 Total T3 Urine Color Urine Appearance Urine pH Ur Specific [place] Urine Protein Urine Glucose (UA) Urine Ketones Ur Blood (Man) Urine Nitrate Urine Bilirubin Urine Urobilinogen Leukocyte Esterase Rfl Urine RBC Urine WBC Ur Squamous Epith Cells Urine Bacteria Urine Casts Blood Type Antibody Screen Crossmatch
[2024-11-30] MEDS: IRON SUCROSE COMPLEX 100 MG in SODIUM CHLORIDE 0.9% IV 50 ML 220 MG IVPB (14:29)
--- NOTE | 2024-11-30 15:53 | PM.CNGS ---
Assessment and Plan Assessment and plan (1) Adenomatous polyp of transverse colon: Code(s): D12.3 - Benign neoplasm of transverse colon Status: Acute Assessment and Plan: Patient does not appear to be acutely bleeding, but her hemoglobin was significantly lower than it was several months ago. She has no other sources of bleeding, therefore the transverse colon polyp seems like the most likely source. She is stable for discharge from surgery standpoint. Patient was originally scheduled for surgery next week but this was put on hold until her blood counts improved and she had further workup. At that she has had this workup inpatient and has received a unit of blood, it should be safe to proceed with surgery next week. Will plan for laparoscopic transverse colectomy, da Elif assisted on 12/06/2024. Will need to stop Eliquis 3 days prior. Bowel prep and antibiotics already given to patient. (2) HARRIETT (iron deficiency anemia): Qualifiers: Iron deficiency anemia type: chronic blood loss Qualified Code(s): D50.0 - Iron deficiency anemia secondary to blood loss (chronic) Code(s): D50.9 - Iron deficiency anemia, unspecified Status: Acute (3) PAF (paroxysmal atrial fibrillation): Code(s): I48.0 - Paroxysmal atrial fibrillation Status: Acute History of Present Illness Consult details Consult date: 11/30/24 Reason for consult: other (transverse colon polyp) Requesting physician: Jose Phelan MD Narrative: This is a 79-year-old woman who presented to the emergency department yesterday with symptomatic anemia. I have seen the patient and was originally scheduling surgery next week for a transverse colon polyp. The lower blood count was noted on her preop labs. She is also having dyspnea on exertion. She was admitted yesterday and received 1 unit of packed red blood cells. Her stool guaiac test is currently negative. I discussed these findings and her workup with Dr. Phelan and she has iron deficiency anemia which is most likely due to chronic blood loss from the large polyp. She is currently hemodynamically stable and will hopefully be discharged soon. Review of Systems Review of Systems: All systems reviewed & are unremarkable except as noted in HPI and below Constitutional: Constitutional: Denies chills, Denies fever(s), Denies headache(s) and Denies weight loss Eyes: Eyes: Denies change in vision ENT: Denies dizziness, Denies headache(s), Denies neck mass and Denies throat swelling Cardiovascular: Cardiovascular: Denies chest pain, Denies lightheadedness and Reports dyspnea on exertion Respiratory: Respiratory: Denies cough and Denies wheezing Gastrointestinal: Gastrointestinal: Denies abdominal pain, Denies change in bowel habits, Denies nausea and Denies vomiting Genitourinary: Genitourinary: Denies hematuria and Denies dysuria Musculoskeletal: Musculoskeletal: Reports as per HPI Integumentary/Breasts: Skin/Breast: Reports as per HPI Neurologic: Denies dizziness and Denies headache(s) Allergic/Immunologic: Allergic/Immunologic: Denies throat swelling and Denies wheezing [facility] Past Medical History Medical History Pulmonary hypertension Preoperative clearance CAD (coronary artery disease) Fibromyalgia Ankylosing spondylitis Cervical osteoarthritis Headache Migraine Congestive heart failure with left ventricular diastolic dysfunction Left shoulder pain Degenerative arthritis of knee, bilateral History of hiatal hernia IBS (irritable bowel syndrome) History of heart attack Headache Arthritis Surgical History Surgical History H/O colonoscopy with polypectomy 01/21/23 Dr. Mark History of rotator cuff surgery History of cataract surgery History of neck surgery History of foot surgery History of hand surgery History of axillary surgery History of tonsillectomy and adenoidectomy Family History Family History Mother Kidney malignancy Father Prostate carcinoma Social History Social History Social History: 08/16/24 very confident with medical forms Smoking packs per day: 0.25 Smoking cigarettes per day: 5.0 Years smoked: 25 Smoking pack-years: 6.25 Smoking status: Former smoker Tobacco type: cigarettes Smoking end date: 11/01/86 Alcohol intake: never Substance use: never Substance use type: does not use Do You Feel Safe in your Home?: Yes Lack of Transportation: No Lack of Food: Never True Current Housing: I Have Housing Concerned About Future Housing: No Difficulty Paying Gas/Electric Bills: No Difficulty Paying for Meds: No Currently Unemployed: No Education: Decline to Answer Difficulty w/ Childcare or Family Care: No Living arrangements: with family Additional living arrangements comments: Occupation/Education: retired Gender identity (if verbalized by the patient): Female Sexual Orientation (if Verbalized by the Patient): Straight or Heterosexual Spiritual care concerns: Yes (Mosque) Meds Home Medications and Allergies Home Medications ?Medication ?Instructions ?Recorded ?Confirmed ?Type valacyclovir 500 mg tablet 500 mg PO BID 10/07/22 11/29/24 History multivitamin 1 tablet PO DAILY 04/06/23 11/29/24 History amiodarone 200 mg tablet 200 mg PO DAILY #90 tabs 07/10/24 11/29/24 Rx amitriptyline 10 mg tablet 10 mg PO QHS #90 tabs 07/10/24 11/29/24 Rx apixaban 5 mg tablet (Eliquis) 5 mg PO BID #180 tabs 07/10/24 11/29/24 Rx furosemide 20 mg tablet 20 mg PO DAILY #90 tabs 07/10/24 11/29/24 Rx metoprolol succinate 25 mg 25 mg PO DAILY #180 tabs 07/10/24 11/29/24 Rx tablet,extended release 24 hr budesonide-formoterol HFA 160 2 puff inhalation Q12H #10.2 grams 09/26/24 11/29/24 Rx mcg-4.5 mcg/actuation aerosol inhaler (Symbicort) albuterol sulfate 90 mcg/actuation 2 inh inhalation Q4H PRN shortness 10/02/24 11/29/24 Rx aerosol inhaler of breath or wheezing #8.5 grams pravastatin 10 mg tablet 10 mg PO DAILY #90 tabs 10/02/24 11/29/24 Rx estradiol 1 mg tablet 1 mg PO DAILY #30 tabs 11/14/24 11/29/24 Rx pantoprazole 40 mg tablet,delayed See Rx Instructions .Route 11/23/24 11/29/24 Rx release .COMPLEX #180 tabs acetaminophen 325 mg capsule 325 mg PO ONCE PRN pain 11/28/24 11/29/24 History (Tylenol) baclofen 10 mg tablet 10 mg PO TID PRN muscle spasm 11/29/24 11/29/24 History benzonatate 100 mg capsule 100 mg PO TID PRN cough 11/29/24 11/29/24 History ciprofloxacin HCl 500 mg tablet See Rx Instructions .Route 11/30/24 Rx .COMPLEX #1 tablet metronidazole 500 mg tablet See Rx Instructions .Route 11/30/24 Rx .COMPLEX #3 tabs Allergies Allergy/AdvReac Type Severity Reaction Status Date / Time Opioids - Morphine Analogues Allergy Severe Swelling Verified 11/29/24 23:40 tramadol (From Ultracet) AdvReac Severe Itching Verified 11/29/24 23:40 ubrogepant (From Ubrelvy) AdvReac Severe Headache Verified 11/29/24 23:40 atogepant (From Qulipta) AdvReac Intermediate Headache Verified 11/29/24 23:40 Vital Signs Vital Signs - 24 hr 11/29/24 20:51 11/29/24 21:31 11/29/24 21:57 Temperature Pulse Rate 60 60 Respiratory Rate 17 18 21 H Blood Pressure 140/57 L 136/63 Pulse Oximetry 100 100 99 Oxygen Delivery 11/29/24 23:19 11/29/24 23:30 11/30/24 00:00 Temperature 98.2 F Pulse Rate 56 L 62 Respiratory Rate 18 18 Blood Pressure 131/53 L 109/55 L Pulse Oximetry 96 100 Oxygen Delivery Room Air 11/30/24 00:00 11/30/24 00:00 11/30/24 02:00 Temperature 98.2 F Pulse Rate 59 L 62 60 Respiratory Rate 18 Blood Pressure 109/55 L Pulse Oximetry 100 Oxygen Delivery 11/30/24 02:45 11/30/24 03:03 11/30/24 04:00 Temperature 97.9 F 97.9 F 98.0 F Pulse Rate 60 59 L 60 Respiratory Rate 16 16 16 Blood Pressure 109/40 L 111/32 L 120/66 Pulse Oximetry 98 98 97 Oxygen Delivery 11/30/24 04:00 11/30/24 04:00 11/30/24 04:03 Temperature 98.0 F Pulse Rate 61 60 Respiratory Rate 16 Blood Pressure 120/66 Pulse Oximetry 97 Oxygen Delivery Room Air 11/30/24 05:03 11/30/24 05:40 11/30/24 06:00 Temperature 98.0 F 97.9 F Pulse Rate 58 L 65 65 Respiratory Rate 16 16 Blood Pressure 123/44 L 129/43 L Pulse Oximetry 98 98 Oxygen Delivery 11/30/24 08:00 11/30/24 08:00 11/30/24 08:03 Temperature 98.8 F Pulse Rate 71 71 63 Respiratory Rate 16 Blood Pressure 132/45 L Pulse Oximetry 98 98 Oxygen Delivery Room Air 11/30/24 08:03 11/30/24 08:54 11/30/24 10:00 Temperature Pulse Rate 71 69 63 Respiratory Rate 20 Blood Pressure Pulse Oximetry Oxygen Delivery 11/30/24 11:17 11/30/24 12:00 11/30/24 12:00 Temperature 99.1 F Pulse Rate 66 71 73 Respiratory Rate 18 Blood Pressure 111/51 L Pulse Oximetry 99 98 Oxygen Delivery Room Air 11/30/24 14:00 Temperature Pulse Rate 68 Respiratory Rate Blood Pressure Pulse Oximetry Oxygen Delivery Exam Const: General: no acute distress and alert Orientation/consciousness: patient oriented x3 HENMT: Head: normocephalic and atraumatic Ears: hearing grossly normal bilaterally Face/Nose/Sinus: Normal nares present Mouth: Yes Normal oral and palatal mucosa present Eyes: Periorbital: periorbital findings normal Sclera: sclerae normal EOM: EOMs intact bilaterally Neck: Neck: normal visual inspection, no lymphadenopathy and trachea midline Chest: Chest palpation & inspection: normal inspection of the chest Resp: Effort & Inspection: normal respiratory effort Auscultation: clear to auscultation bilaterally Cardio: Jugular venous distension: no JVD Rate: regular rate Rhythm: regular rhythm Heart sounds: S1 normal heart sound present and S2 normal heart sound present Peripheral pulses: Peripheral pulses 2+ throughout GI: Inspection: normal to inspection GI Palp: Yes Soft to palpation, No Tenderness to palpation present (GI), No Guarding due to palpation present (GI) and No Rebound tenderness present Percussion: Yes normal to percussion Auscultation: normal bowel sounds : General: Yes no CVA tenderness Back/Spine/Pelvis: Back: no CVA tenderness Neuro: General: patient oriented x3, no focal motor deficits and CN's II-XI intact bilaterally Cognition (Neuro): normal cognition Speech: normal speech Motor exam (neuro): 5/5 motor strength present throughout Extrem: General: capillary refill normal and no clubbing, cyanosis or edema Results Labs 11/30/24 13:29 11/29/24 13:45 Labs: Abnormal lab results 11/29/24 11/29/24 11/29/24 Range/Units 13:45 21:27 22:46 Hgb 6.8 L* (12.0-15.0) g/dL Hct 22.6 L (37.0-47.0) % Immature Retic Fraction 28.2 H (3.0-15.9) % Retic Hgb Content 24.3 L (28.2-36.6) pg Iron 31 L (37-170) ug/dL TIBC 502 H (261-462) ug/dL % Saturation 6 L (20-50) % Ferritin 7.67 L (11.1-264) ng/mL Folate > 20.0 H (2.76->20) ng/mL TSH (Reflex) 4.940 H (0.465-4.68) uIU/mL Leukocyte Esterase Rfl 2+ H (Negative) BRIAN/UL Urine WBC 11-20 H (0-3) /hpf Crossmatch See Detail 11/30/24 11/30/24 Range/Units 07:47 13:29 Hgb 8.0 L 8.5 L (12.0-15.0) g/dL Hct 25.9 L 27.8 L (37.0-47.0) % Immature Retic Fraction (3.0-15.9) % Retic Hgb Content (28.2-36.6) pg Iron (37-170) ug/dL TIBC (261-462) ug/dL % Saturation (20-50) % Ferritin (11.1-264) ng/mL Folate (2.76->20) ng/mL TSH (Reflex) (0.465-4.68) uIU/mL Leukocyte Esterase Rfl (Negative) BRIAN/UL Urine WBC (0-3) /hpf Crossmatch Pituitary panel 11/29/24 Range/Units 13:45 Total T3 1.28 (0.97-1.69) NG/ML All other labs normal.
[2024-11-30 18:58] LABS: Hematocrit 26.6 % (37.0-47.0)
[2024-11-30] MEDS: AMITRIPTYLINE HCL 10 MG TABLET PO (21:30)
[2024-11-30] MEDS: BENZONATATE 100 MG CAPSULE PO (21:30)
[2024-11-30] MEDS: MELATONIN 3 MG TABLET PO (21:31)
[2024-12-01] VITALS (16 sets, daily range): BP systolic 117–127; BP diastolic 40–69; PULSE 63–72; RESP 15–18; TEMP 36.6–36.8; O2SAT 96–100
[2024-12-01 00:25] LABS: Hematocrit 24.8 % (37.0-47.0); Hemoglobin 7.6 g/dL (12.0-15.0)
[2024-12-01 01:58] LABS: Haptoglobin 168 mg/dL (43-212)
[2024-12-01 05:09] LABS: Basophils Absolute Auto 0.1 K/mm3 (0.0-0.1); Basophils Percent Auto 0.9 % (0.2-1.2); Eosinophils Absolute Auto 0.3 K/mm3 (0-0.3); Hemoglobin 7.4 g/dL (12.0-15.0); Immature Granulocyte Absolute 0.01 K/mm3 (0.00-0.031); Immature Granulocyte Percent A 0.2 % (0-0.5); Lymphocytes Absolute Auto 2.26 K/mm3 (0.9-3.2); Lymphocytes Percent Auto 35.1 % (18.3-44.2); Mean Corpuscular HGB Conc 30.8 g/dl (32-36); Mean Corpuscular Hemoglobin 25.8 pg (26-34); Mean Corpuscular Volume 83.6 fl (80-100); Mean Platelet Volume 10.7 fl (7.4-10.4); Monocytes Absolute Auto 0.7 K/mm3 (0.1-0.6); Monocytes Percent Auto 11.2 % (2.6-8.5); Neutrophils Absolute Auto 3.1 K/mm3 (1.3-6.7); Neutrophils Percent Auto 48.6 % (45.5-73.1); Platelet Count Result 241 k/mm3 (150-375); Red Blood Count 2.87 M/mm3 (4.2-5.4); Red Cell Distribution Width 16.9 % (11.5-14.5); White Blood Count 6.4 K/mm3 (4.5-10.0)
[2024-12-01 05:24] LABS: Sodium 138 mmol/L (137-145)
[2024-12-01 05:29] LABS: Anion Gap 8 mmol/L (4-12); Blood Urea Nitrogen 20 mg/dL (7-17); Calcium 8.2 mg/dL (8.4-10.2); Carbon Dioxide 23 mmol/L (22-30); Chloride 107 mmol/L (98-107); Estimated CRCL calculation 42 ml/min; Estimated Glomerular Filt Rate 58; Glucose 83 mg/dL (65-110)
[2024-12-01] MEDS: AMIODARONE HCL 200 MG TABLET PO (08:52)
[2024-12-01] MEDS: valACYclovir HCL 500 MG TABLET PO (08:52)
[2024-12-01] MEDS: IRON SUCROSE COMPLEX 100 MG in SODIUM CHLORIDE 0.9% IV 50 ML 220 MG IVPB (08:52)
[2024-12-01] MEDS: estradioL 1 MG TABLET PO (08:52)
[2024-12-01] MEDS: PANTOPRAZOLE 40 MG TABLET BY MOUTH (08:52)
[2024-12-01] MEDS: PRAVASTATIN SODIUM 10 MG TABLET PO (08:52)
[2024-12-01 09:08] LABS: IFOB Positive Control Positive; Immunochemical Fecal Occult Bl Positive (N)
[2024-12-01] MEDS: FLUTICASONE/SALMETEROL 115-21 MCG INHALER 1 PUFF 2 PUFF INHALATION (09:34)
[2024-12-01] MEDS: SODIUM CHLORIDE 0.9% IV 250 ML 30 ML IV CONT (10:25)
--- NOTE | 2024-12-01 14:12 | PM.DS ---
DS: Admitting Diagnosis Discharge Date 12/01/24 Admitting Diagnosis Lightheadedness DS: Discharge Diagnosis Discharge Diagnosis (1) Anemia: Code(s): D64.9 - Anemia, unspecified Status: Acute (2) Congestive heart failure with left ventricular diastolic dysfunction: Code(s): I50.30 - Unspecified diastolic (congestive) heart failure Status: Acute Assessment and Plan: Patient has a hx of CHF. Echo 11/24/24 showing EF 60-65% with grade IV diastolic dysfunction and mild-mod MR. Clinically euvolemic Follow (3) Pulmonary hypertension: Code(s): I27.20 - Pulmonary hypertension, unspecified Status: Acute (4) PAF (paroxysmal atrial fibrillation): Code(s): I48.0 - Paroxysmal atrial fibrillation Status: Acute (5) Colon polyp: Code(s): K63.5 - Polyp of colon Status: Acute (6) Ankylosing spondylitis: Code(s): M45.9 - Ankylosing spondylitis of unspecified sites in spine Status: Acute (7) GERD (gastroesophageal reflux disease): Qualifiers: Esophagitis presence: without esophagitis Qualified Code(s): K21.9 - Gastro-esophageal reflux disease without esophagitis Code(s): K21.9 - Gastro-esophageal reflux disease without esophagitis Status: Acute DS: Summary Hospital Course Reason for hospitalization: 79yo female with pHTN, CAD, CHF and known large colonic polyp here for lightheadedness. Please see H&P for details. Hospital Course: Patient presented with lightheadedness and known anemia. She states Hgb has been low earlier this month to 6.2. Here, Hgb was 7.3. She was guaiac negative. She was iron deficient with TIBC 502, iron 31 with iron sat at 6% and ferritin at 7.7. B12/folate normal. Repeat Hgb dropped to 6.8 and she received 1U PRBC. She tolerated this well. Apixiban was held. Hgb checked serial that peaked at 8.5 before trending down. Spoke with GenSurg but they did not feel necessary for patient to have partial colon resection done at this time but did recommend keeping the upcoming appoint for surgical resection on Dec 06. Source of iron deficiency was unclear. Consider dietary, chronic blood loss (could be GI blood loss if intermittent), celiac and/or PPI treatment. Celiac panel ordered. Patient has a hx of CHF. Echo 11/24/24 showing EF 60-65% with grade IV diastolic dysfunction and mild-mod MR. Clinically remained euvolemic. Echo also showed severe pHTN with PASP 61mmHg, mod-severe TR and trace pulmonic regurg. Normal appearing RV. CXR showing ILD. She remained on room air. EKG showing sinus bradycardia (56) with 1st degree AVB. She is on Amiodarone for rate and rhythm control. Eliquis was on hold. UA noted. UCx collected but was negative. She did not receive abx. Stool guaiac was repeated and was positive. She had mentioned straining and having bright red blood per rectum so could be from hemorrhoids vs colon polyp.. She was started on IV iron. Hgb trended down to 7.4 so PRBC x 1U ordered. Plan for her to discharge home and remain off Eliquis until surgery in 5 days. Explained the risk for CVA although she remained in sinus rhythm here and she voices understanding of the risk. Hopefully with the PRBC today and hold Eliquis, that her Hgb will remain stable for the partial colon resection in 5 days. She overall did well and was able to be discharged home on 12/01/24. Status at Discharge Cognitive/behavioral status at discharge: Stable Time Spent with Patient Time attestation: Total time spent providing and/or coordinating discharge services: 35 minutes Time spent: Greater than 30 minutes Exam Narrative: AF 98.3 123/49 67 18 98% ra Gen - NARD Chest - CTA bilaterally, nml RR CV - RRR S1/S2. Tele showing no acute findings. Abd - Soft, NT/ND, Positive BS Ext - No pedal edema Psych - Nml mood and affect Skin - Warm and dry DS: Data Data Completed and Pending Labs on day of discharge: Labs from last 24 hours 12/01/24 12/01/24 12/01/24 08:51 04:24 00:15 WBC 6.4 RBC 2.87 L Hgb 7.4 L 7.6 L Hct 24.0 L 24.8 L MCV 83.6 MCH 25.8 L D MCHC 30.8 L RDW 16.9 H Plt Count 241 MPV 10.7 H Immature Gran % (Auto) 0.2 Neut % (Auto) 48.6 Lymph % (Auto) 35.1 Beaver % (Auto) 11.2 H Eos % (Auto) 4.0 Baso % (Auto) 0.9 Lymph # (Auto) 2.26 Beaver # (Auto) 0.7 H Eos # (Auto) 0.3 Baso # (Auto) 0.1 Abs Immat Gran (auto) 0.01 Absolute Neuts (auto) 3.1 Absolute Nucleated RBC 0.000 Nucleated RBC % 0.0 Haptoglobin Sodium 138 Potassium 4.0 Chloride 107 Carbon Dioxide 23 Anion Gap 8 BUN 20 H Creatinine 0.94 Estim Creat Clear Calc 42 Estimated GFR 58 L Glucose 83 Calcium 8.2 L Stl Occult Blood (IFOB) Positive H IgA Pending Tiss Transglut IgA Comm Pending Anti-Gliadin IgG Deam Pending Celiac Disease Interp Pending Blood Type Antibody Screen Crossmatch 11/30/24 11/29/24 11/29/24 18:34 22:46 13:45 WBC RBC Hgb 8.0 L Hct 26.6 L MCV MCH MCHC RDW Plt Count MPV Immature Gran % (Auto) Neut % (Auto) Lymph % (Auto) Beaver % (Auto) Eos % (Auto) Baso % (Auto) Lymph # (Auto) Beaver # (Auto) Eos # (Auto) Baso # (Auto) Abs Immat Gran (auto) Absolute Neuts (auto) Absolute Nucleated RBC Nucleated RBC % Haptoglobin 168 Sodium Potassium Chloride Carbon Dioxide Anion Gap BUN Creatinine Estim Creat Clear Calc Estimated GFR Glucose Calcium Stl Occult Blood (IFOB) IgA Tiss Transglut IgA Comm Anti-Gliadin IgG Deam Celiac Disease Interp Blood Type A Positive Antibody Screen Negative Crossmatch See Detail Discharge Plan Discharge Attending physician on discharge: Jose [place] Consulting providers: Dilshad Cardona; Gera Miranda Discharging Clinician: Jose [place] Anticipated Discharge Date/Time: 12/01/24 14:23 Patient Disposition: Home, Self-Care Activity: as tolerated Diet: regular Discharge Instructions: Take precautions to avoid falls. Rise slowly from a lying or sitting position. Pause before standing or walking. Contact your doctor or call 911 and come to the Emergency Room if you have blood from the rectum, lightheadedness with standing or other worrisome symptoms. Avoid NSAIDs (ibuprofen, naproxen, Aleve). Tylenol is safe to take. Follow-up with your primary care provider in 1-2 weeks. Please call for appointment. Follow-up on Dec 06 for planned partial colon resection with Dr Miranda Thank you for using [facility] for your health care needs. Patient Instructions: Antibiotic Form, Heart Failure (GEN) Patient Language: Ivorian Stand Alone Forms: General Discharge Information Follow-up/Referrals: Maria Allen APN-C [Primary Care Provider] - Call for Appointment Gera Miranda DO [Physician] - Keep Reg. Scheduled Appt. Discharge Medications: Continued multivitamin Tablet 1 tablet PO DAILY metoprolol succinate 25 mg tablet extended release 24 hr 25 mg PO DAILY Qty: 180 1RF furosemide 20 mg tablet 20 mg PO DAILY Qty: 90 2RF amiodarone 200 mg tablet 200 mg PO DAILY Qty: 90 1RF amitriptyline 10 mg tablet 10 mg PO QHS Qty: 90 2RF budesonide-formoterol [Symbicort] 160-4.5 mcg/actuation HFA aerosol inhaler 2 puff inhalation Q12H Qty: 10.2 3RF Rx Instructions: Rinse mouth and spit after each use valacyclovir 500 mg tablet 500 mg PO BID baclofen 10 mg tablet 10 mg PO TID PRN (Reason: muscle spasm) benzonatate 100 mg capsule 100 mg PO TID PRN (Reason: cough) acetaminophen [Tylenol] 325 mg capsule 325 mg PO ONCE PRN (Reason: pain) pravastatin 10 mg tablet 10 mg PO DAILY Qty: 90 1RF albuterol sulfate 90 mcg/actuation HFA aerosol inhaler 2 inh inhalation Q4H PRN (Reason: shortness of breath or wheezing) Qty: 8.5 0RF estradiol 1 mg tablet 1 mg PO DAILY Qty: 30 1RF pantoprazole 40 mg tablet,delayed release (DR/EC) See Rx Instructions .ROUTE .COMPLEX Qty: 180 1RF Dose Instruction: TAKE 1 TABLET BY MOUTH TWICE A DAY Rx Instructions: TAKE 1 TABLET BY MOUTH TWICE A DAY ciprofloxacin HCl 500 mg tablet See Rx Instructions .Route .COMPLEX Qty: 1 0RF Rx Instructions: Take 1 tablet by mouth at 2:00 PM the day prior to surgery.; metronidazole 500 mg tablet See Rx Instructions .Route .COMPLEX Qty: 3 0RF Rx Instructions: Take 1 tablet by mouth at 1:00PM, 2:00PM, and 11:00PM the day prior to surgery.; Held Eliquis 5 mg tablet 5 mg PO BID Qty: 180 1RF Hold Instructions: HOLD - Resume when okay with Dr Miranda Date of admission: 11/29/24 22:08 Primary Care Provider: Maria Allen Admitting Provider: Cinthya Nicolas V. Attending physician on admission: Cinthya Nicolas V. Condition: Stable Hospitalist MIPS Heart Failure (Exclusion) Patient has history of Heart Transplant or Left Ventricular Assistive Device?: No IF YES, STOP HERE Heart Failure (Qualifier) Patient has current or prior documentation of LVEF less than or equal to 40%, or mod/servere depressed LVSF?: No IF NO, STOP HERE
[2024-12-04 18:54] LABS: Immunoglobulin A 381 mg/dL (70-320); TTG IGA AB <1.0 U/mL
== END 2024-12-01 15:15 | disposition home or self-care (01) ==
LOC: ANHED 20:49 → ANHIMU 11-30 00:46
PROVIDERS: Emergency Medicine; Physician Assistant; Admitting Provider Internal Medicine; Emergency Provider Physician Assistant; PCP Nurse Practitioner Family; Visit Provider Internal Medicine
DX: D50.0 Iron deficiency anemia secondary to blood loss (chronic) (principal); R19.5 Other fecal abnormalities; D12.3 Benign neoplasm of transverse colon; I50.32 Chronic diastolic (congestive) heart failure; I27.20 Pulmonary hypertension, unspecified; I48.0 Paroxysmal atrial fibrillation; K44.9 Diaphragmatic hernia without obstruction or gangrene; K29.30 Chronic superficial gastritis without bleeding; K21.00 Gastro-esophageal reflux disease with esophagitis, without bleeding; K58.9 Irritable bowel syndrome, unspecified; J43.9 Emphysema, unspecified; I25.10 Atherosclerotic heart disease of native coronary artery without angina pectoris; I35.1 Nonrheumatic aortic (valve) insufficiency; I25.2 Old myocardial infarction; M79.7 Fibromyalgia; M47.812 Spondylosis without myelopathy or radiculopathy, cervical region; M45.9 Ankylosing spondylitis of unspecified sites in spine; E78.5 Hyperlipidemia, unspecified; G43.909 Migraine, unspecified, not intractable, without status migrainosus; Z87.891 Personal history of nicotine dependence; Z79.01 Long term (current) use of anticoagulants; Z79.51 Long term (current) use of inhaled steroids; Z79.899 Other long term (current) drug therapy
CPT/HCPCS: 36415; 36430; 71046; 80048; 80053; 81001; 82274; 82607; 82728; 82746; 82784; 83010; 83540; 83550; 83615; 83690; 83880; 84439; 84443; 84466; 84480; 84484; 85014; 85018; 85025; 85046; 85610; 85730; 86364; 86850; 86900; 86901; 86920; 86923; 87086; 93005; 94640; 96374; 99285; A9270; G0378; J1756; J7050; P9016

== ENCOUNTER 2024-12-06 14:22 | Inpatient (IN) | payer MEDICARE, SELFPAY ==
[2024-11-27 10:41] VITALS: PULSE 61; RESP 16; TEMP 36.6; O2SAT 100
[2024-11-28 10:19] VITALS: BMI 26.2
--- NOTE | 2024-11-28 10:39 | PC.NURSE ---
Report to the Outpatient Waiting Room, entrance under the green pavilion located off [facility], at time _0700am on date __12/06/24 . Planned Procedure Time: ____0900am____.? Time changes happen often and if your time is changed the preop area will call you the afternoon before. - You and your visitor will be asked to self-screen and do not enter if you have any COVID symptoms. Please call surgeon if you need to reschedule. - A mask is optional within the hospital at this time. Patients may have clear liquids Day before (water, carbonated beverages, clear teas, apple juice)- BY Mouth PREP per Dr Miranda Protocol w Meds/Instructions- pt has them until time of surgery and no smoking. This includes no chewing gum, candy or mints. Take only the following medications with a SIP of water on the morning of surgery: Antibiotics preop as prescribed, Metoprolol, Valcyclovoir,_Albuteral & Budesonide Ihhaler as needed, Tyelenol as needed. DO NOT STOP ANY OF YOUR OTHER PRESCRIPTION MEDICATIONS PRIOR TO SURGERY EXCEPT THE FOLLOWING Medications to discontinue per physician ____HOLD ELIQUIS per Dr Miranda instructions, office to call pt - I notified them of pt Anticoag. Date to take last dose__per Dr Miranda. Any Body Prep/Scrub per Dr Miranda. Please no make-up, nail [place], hairspray, perfume, deodorant, or body powder the day of surgery.? No jewelry (including any body piercings) or valuables the day of surgery, leave them at home.? Please take a shower or bath the night before, or the morning of, surgery with an antibacterial soap.? Wear comfortable, loose fitting clothing.? - Jewelry must be removed prior to entering the operating room.? Rings and piercings that are not removed may be cut off. - The hospital will not accept responsibility for valuables.? - Please leave all valuables, including medications, at home the day of surgery. If you are going home after surgery, a licensed pile driver must drive you home.? - NO public transportation without another adult if you receive anesthesia. - We recommend that an adult stay with you for 24 hours following discharge. - We also recommend that you do not drive, make important decision, drink alcoholic beverages, or take any drugs that were not prescribed by your health care provider for at least 24 hours after your discharge time. For Pediatric surgeries, we recommend two adults accompany the child home. Hold all vitamins and supplements for 3 days per anesthesiologist. Follow any additional instructions given to you from your surgeon. Telephone instructions given to ___Patient & and asked if any additional questions and then verbalized understanding. Patient advised to call surgeon office or pre surgery nurse liaison [phone] if any additional questions.
--- NOTE | 2024-11-28 11:36 | SUR.PREOP ---
Addendum entered by Pura Wharton RN 12/01/24 16:06: CALLED PATIENT TO REVIEW PRE-OP INSTRUCTIONS POST HOSPITALIZATION FOR ANEMIA. PT WAS DISCHARGED TODAY AFTER BEING IN HOSPITAL FROM WEDNESDAY UNTIL TODAY AND RECEIVING BLOOD 3 TIMES DURING THAT PERIOD. SHE STATES THAT SHE WAS ADVISED BY MD WHILE HOSPITALIZED TO HOLD ELIQUIS UNTIL AFTER BOWEL RESECTION ON 12/06/24, SHE IS DOING THAT. ALL PRE-OP INSTRUCTIONS WERE REVIEWED WITH PATIENT AND SHE RELAYS UNDERSTANDING. INSTR HER TO GO TO ER IF SHE HAS GI BLEEDING OR FOR SYMPTOMS OF WEAKNESS, DIZZINESS, SHORTNESS OF BREATH. SHE RELAYS UNDERSTANDING. Original Note: Dr Miranda office notified per Dr Burns of critical Hgb 6.8 they will follow up with surgeon to see if any additional orders. This RN called the patient to advise to go to ER if needed or call 911. Patient states feeling weak for several days but getting around ok. I advised her office will be calling with follow up needs.
[2024-12-06] VITALS (12 sets, daily range): BP systolic 113–146; BP diastolic 45–73; PULSE 50–61; RESP 12–16; TEMP 36.3–36.4; O2SAT 94–100; BMI 26.2
--- OUTSIDE RECORDS SUMMARY | 2024-12-06 02:32 | XMS_ITS | Referral Summary ---
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 Gender Identity Not on file Sexual Orientation Not on file Last Filed Vital Signs Vital Sign Reading Time Taken Comments Blood Pressure 122/64 06/13/2024 1:18 PM CDT Pulse 56 06/13/2024 1:18 PM CDT Temperature - - Respiratory Rate - - Oxygen Saturation 99% 10/12/2023 1:02 PM SHAFTING CLEANER Inhaled Oxygen Concentration - - Weight 68 kg (150 lb) 06/13/2024 1:18 PM CDT Height 170.2 cm (5' 7 ) 06/13/2024 1:18 PM CDT Body Mass Index 23.49 06/13/2024 1:18 PM CDT Plan of Treatment Not on file Insurance MEDICARE SOLUTIONS MEDICARE SOLUTIONS MEDICARE SOLUTIONS Member Subscriber Plan / Payer (Ef fective 2023-Present) Name:Ivet Walton Relation to Subscriber:Self Name:Ivet Walton Payer ID:[id number] (NAIC) Type:[facility] MEDIC[facility] Address: [place] [phone] MEDICARE SOLUTIONS MEDICARE SOLUTIONS Care Teams Ice Platform Supervisor Relationship Specialty Start Date End Date Fei Esquivel MD [address] [place] [id number] PCP - General Family Medicine 09/28/22
--- OUTSIDE RECORDS SUMMARY | 2024-12-06 02:32 | XMS_ITS | Clinical Summary ---
Author Organization [facility] Address [facility] [place] [address] Care Team Providers Care Botany Professor Name Role Phone Maria Allen Primary Care Provider [phone] Allergies Active Allergy Reactions Criticality Noted Date [...] (01/13/2023): Added automatically from request for surgery [id number] Family hx of colon cancer 01/13/2023 Overview (01/13/2023): Added automatically from request for surgery [id number] Screening for colon cancer 01/13/2023 Overview (01/13/2023): Added automatically from request for surgery [id number] Hx of adenomatous colonic polyps 01/13/2023 Overview (01/13/2023): Added automatically from request for surgery [id number] Family History Medical History Relation Comments Colon Cancer Cousin None Father Alzheimers Mother Kidney Disease Mother Colon Cancer Paternal Uncle Breast Cancer Neg Hx Relation Status Comments Cousin Alive Father Mother Paternal Uncle Social History Tobacco Use Types Packs/Day Years Used Date Smoking Tobacco: Former Cigarettes 1 - 1986 Smokeless Tobacco: Never Tobacco Cessation:Counseling Given: [...] Comments Blood Pressure 123/69 12/20/2023 9:20 AM HAND ZIPPER TRIMMER Pulse 89 12/20/2023 9:20 AM HAND ZIPPER TRIMMER Temperature 36.7 ??C (98 ??F) 12/20/2023 7:50 AM HAND ZIPPER TRIMMER Respiratory Rate 18 12/20/2023 9:20 AM HAND ZIPPER TRIMMER Oxygen Saturation 97% 12/20/2023 9:20 AM HAND ZIPPER TRIMMER Inhaled Oxygen Concentration - - Weight 68.5 kg (151 lb) 12/20/2023 7:51 AM HAND ZIPPER TRIMMER Height 170.2 cm (5' 7 ) 12/20/2023 7:51 AM HAND ZIPPER TRIMMER Body Mass Index 23.65 12/20/2023 7:51 AM HAND ZIPPER TRIMMER Plan of Treatment Health Maintenance Due Date Last Done Comments Hepatitis C 1963 DTaP, Tdap and Td Vaccines ( 1 - Tdap) 1965 Annual Medicare Wellness Visit 2011 Dexa Scan (General) 2011 Pneumococcal Vaccine: 65+ Years (1 of 1 - PCV) 2011 RSV Immunization or 60+ Years (1 - 1-dose 75+ series) 2021 PHQ-2 (Physician [employer]) 02/05/2024 02/04/2023 COVID-19 Vaccine ( - 2023-2 5 season) 2024 Influenza Adult (#1) 2024 PHQ-2 (Physician [employer]) 11/01/2024 02/04/2023 Zoster Vaccines Completed 08/24/2022, 06/25/2022 [...] this topic Medical Devices Implanted Type Area Implementation Analyst Device Identifier Shelf Expiration Date Model / Serial / Lot Ocular Lens Implanted:Qty: 1 on 12/20/2023 by Dharmesh Johns MD at [facility] KIRST[facility] Left: Eye [id number] 11/10/2025 [id number] / [id number] / Procedures Procedure Name Priority Date/Time Associated Diagnosis Comments COLONOSCOPY Routine 01/21/2023 6:58 AM CDT from Last 3 Months or Most Recently Relevant to Health Maintenance Insurance [facility] Care Teams Botany Professor Relationship Specialty Start Date End Date Maria Allen FNP [address] [place] [id number] PCP - General Nurse Practitioner Family 08/08/24
--- OUTSIDE RECORDS SUMMARY | 2024-12-06 02:32 | XMS_ITS | Clinical Summary ---
Author Organization [facility] Address [address] [place] [address] Care Team Providers Care Barometers Calibrator Name Role Phone Fei Esquivel MD Primary Care Provider [phone] Allergies Active Allergy Reactions Criticality Noted Date [...] (10/12/2023): Added automatically from request for surgery [id number] Surgical History Surgery Date Site/Laterality Comments EYE SURGERY CATARACT EXTRACTION Medical History Medical History Date Comments Ankylosing spondylitis (HCC) Neuritis Neuropathy (CMS/HCC) Herpes zoster Social History Tobacco Use Types Packs/Day Years Used Date Smoking Tobacco: Never Smokeless Tobacco: Never Comments Unknown Sex and Gender Information Value Date Recorded Sex Assigned at Not on file Legal 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 Gender Identity Not on file Sexual Orientation Not on file Obstetrics History Last Filed Vital Signs Vital Sign Reading Time Taken Comments Blood Pressure 122/64 06/13/2024 1:18 PM CDT Pulse 56 06/13/2024 1:18 PM CDT Temperature - - Respiratory Rate - - Oxygen Saturation 99% 10/12/2023 1:02 PM ORNAMENT STAPLER Inhaled Oxygen Concentration - - Weight 68 [...] Completed 08/24/2022, 06/25/2022 Insurance MEDICARE SOLUTIONS MEDICARE Privatext MEDICARE SOLUTIONS MEDICARE Privatext MEDICARE Privatext Care Teams Barometers Calibrator Relationship Specialty Start Date End Date Fei Esquivel MD [address] [place] [id number] PCP - General Family Medicine 09/28/22
--- OUTSIDE RECORDS SUMMARY | 2024-12-06 02:32 | XMS_ITS | Data Portability ---
Author Organization [place] - [place] - Ronald garciaMARYANN_NMG_[place] Address [address] [place] [address] Care Team Providers Care Cold Patcher Name Role Phone DEAN WILSON Primary Care Provider [phone] DEAN WILSON Referring Provider [phone] Assessment Encounter Date Assessment Date Assessment LastModified by Organization Details LastModified Time 02/01/2018 02/01/2018 CT scan shows postoperative change with some osteophytosis at C3-4. I have gone ahead and scheduled her for an MRI. We will make further plans after reviewing the study. cc: Dean Wilson MD Not available 02/02/2018 07:15:56 05/05/2018 05/05/2018 I feel her next best mode of treatment would be epidural steroid injections. This would be performed at [facility]. I will see her back in two months in followup. cc: Dean Wilson MD Not available 05/06/2018 12:46:23 Plan of Treatment Reminders Order Date Submit Date Provider Last Modified By Organization Details Last Modified Time Details Appointments None recorded . Lab None recorded . Referral physical therapis t referral - Location : Patient' s choice 2017 018 [email or web address] Not available 8 06:41:25 Procedures epidural steroid injectio n, cervical (PROC) - Cervical ESIs x3 2017 018 [facility], [address], [address], [place], [address], 8 07:45:10 Surgeries None recorded . Imaging MRI, cervical spine, w/o contrast - MRI C Spine without PLESA E MAIL A DISC TO US 2017 018 BRITTNEY [facility], [address] [address], [place], [address], 8 12:10:05 Medication Orders None recorded . Patient TargetsNo targets recorded. Patient InstructionsNo instructions recorded. Reason for Referral Location: Patient's choice Referring Physician: Luis F Valle, Neurosurgery, Encounter Date: 05/05/2018 Results Created Date Observation Date Name Description Value Unit Range Abnormal Flag Note LastModifiedBy Organization Detail LastModifiedTime 02/03/20 18 01/12/2018 CT, cervi eddie spine , w/o contr ast No observ ation record ed. BARCODE Not Available 2017 15:41:03 02/12/20 18 02/04/2018 MRI, cervi eddie spine , w/o contr ast No observ ation record ed. [email or web address] Not Available 01/30 14:39:53 02/12/20 18 02/04/2018 MRI, cervi eddie spine , w/o contr ast No observ ation record ed. TORY [facility] [address] [address], [place], [address], 02/11/2018 12:10:05 02/29/20 18 02/24/2018 nerve condu ction study /EMG (PROC ) No observ ation record ed. [email or web address] Not Available 11/2017 08:15:00 09/28/20 18 09/27/2018 XR, cervi eddie spine , 2 or 3 view No observ ation record ed. [email or web address] [facility] (Radiology Scheduling) [address], [place], [address], 09/30/2018 12:19:06 Result Notes None recorded. Procedures Surgical History Date Name Laterality Status Provider Name and Address Organization Details Recorded Time Cholecystectomy completed [facility] 02/02/2018 07:11:40 Cataract Surgery completed [facility] 02/02/2018 07:12:03 Hernia Repair completed Jud Holbrook [place] - [place] [facility] 02/02/2018 07:12:26 Tonsillectomy/Adeno idectomy completed Jud Holbrook [place] - [facility] 02/02/2018 07:12:51 Carpal Tunnel Surgery completed Jud Holbrook [place] [facility] 02/02/2018 07:13:29 Hysterectomy completed Jud Holbrook [place] [facility] 02/02/2018 07:13:47 Shoulder Surgery completed Jud Holbrook [place] [facility] 02/02/2018 07:14:31 Spinal Surgery completed Jud Holbrook [place] [facility] 02/02/2018 07:15:02 Gallbladder Surgery completed Soumya Mills [facility] 06/24/2018 14:47:08 Rotator Cuff completed Jorge Mills [facility] 06/24/2018 14:47:08 Cervical Fusion completed Jorge Mills [facility] 06/24/2018 14:47:08 Imaging Results Imaging Date Name Status LastModified by Organiz ation Details LastModified Time 01/12/2018 CT, cervical spine, w/o contrast completed [facility] Information not available 02/02/2018 15:41:03 02/04/2018 MRI, cervical spine, w/o contrast completed Information not available 02/11/2018 14:39:53 02/04/2018 MRI, cervical spine, w/o contrast completed [facility] [address] [facility] [address], [place], [address], 02/11/2018 12:10:05 02/24/2018 nerve conduction study/EMG (PROC) completed Information not available 03/01/2018 08:15:00 09/27/2018 XR, cervical spine, 2 or 3 view completed [email or web address] [facility] (Radiology Scheduling) [address] [facility] [place], [address], 09/30/2018 12:19:06 Procedure Notes None recorded. Medical Equipment None Reported. Allergies Allergen ID Allergen Name Allergen Category Reaction Reaction Severity Criticality Documentation Date Start Date Code Code System Note Provider Name and Address Organization Details Recorded Time 114740 morphine medicatio n hives itching other Not available Not available Not available Not available 02/02/2018 7052 RxNorm Jud Holbrook null, [place] - [place] - [place] 8 07:05:49 Medications Name Sig Start Date Stop Date Status Note LastModified by Organization Details LastModified Time atorvastatin 40 mg tablet active Not Available Not Available No t Available prednisone 10 mg tablet active Not Available Not Available Not Available Neurontin 300 mg capsule Take 1 capsule (s) twice a day by oral route as needed. active Not Available Not Available No t Available clindamycin HCl 300 mg capsule active Not Available Not Availab le Not Available azithromycin 250 mg tablet active Not Available Not Available No t Available meloxicam 15 mg tablet active Not Available Not Available Not Available sucralfate 1 gram tablet active Not Available Not Available Not Available tramadol 50 mg tablet Take 1 tablet every 8 hours by oral route as needed. active Not Available Not Available No t Available tolterodine 2 mg tablet active Not Available Not Available Not Available meclizine 25 mg tablet active Not Available Not Available Not Available cephalexin 500 mg capsule active Not Available Not Available N ot Available esomeprazole magnesium 40 mg capsule,delayed release active Not Available Not Available Not Available lansoprazole 30 mg capsule,delayed release active Not Available Not Available Not Available fluorometholone 0.1 % eye drops,suspension active Not Available Not Avail able Not Available polymyxin B sulfate 10,000 unit-trimethopri m 1 mg/mL eye drops active Not Available Not Available Not Available polyethylene glycol 3350 17 gram/dose oral powder active Not Available Not Available Not Available levofloxacin 500 mg tablet active Not Available Not Available No t Available oxycodone-acetam inophen 7.5 mg-325 mg tablet active Not Available Not Avail able Not Available methylprednisolo ne 4 mg tablets in a dose pack active Not Available Not Availab le Not Available Vitamin D2 1,250 mcg (50,000 unit) capsule active Not Available Not Availabl e Not Available cefdinir 300 mg capsule active Not Available Not Available Not Available nitrofurantoin monohydrate/macr ocrystals 100 mg capsule active Not Available Not Available Not Available duloxetine 30 mg capsule,delayed release active Not Available Not Available Not Available duloxetine 60 mg capsule,delayed release active Not Available Not Available Not Available estradiol active Not Available Not Lorena ilable Not Available ProAir HFA 90 mcg/actuation aerosol inhaler active Not Available Not Availa ble Not Available Vitals Date Recorded Body height Body mass index (BMI) Body weight Heart rate Body temperature Systolic blood pressure Diastolic blood pressure Provider Name and Address Organization Details Last Updated DateTime 8 172.72 cm 28.6 kg/m2 69293.3 7 g 76 /min 99.1 [degF] 127 mm[Hg] 71 mm[Hg] Antonellacody Carr [facility] 8 12:38:48 Date Recorded Body height Body mass index (BMI) Body weight Heart rate Body temperature Systolic blood pressure Diastolic blood pressure Provider Name and Address Organization Details Last Updated DateTime 8 172.72 cm 28.6 kg/m2 51848.3 7 g 81 /min 97.6 [degF] 133 mm[Hg] 75 mm[Hg] [facility] 8 15:34:28 Social History Question Answer Notes LastModified by Organizat ion Details LastModified Time Tobacco Smoking Status Former Smoker Jud Holbrook [facility] 02/02/2018 07:09:46 What Is Your Level Of Alcohol Consumption? None [email or web address] Information not available 06/24/2018 Auto Related Injury? No [email or web address] Information not available 06/24/2018 Are You Currently Employed? No [email or web address] Information not available 06/24/2018 Education 12 [email or web address] Information n ot available 06/24/2018 What Was The Date Of Your Most Recent Tobacco Screening? 02/02/2018 Information n ot available 05/26/2019 Work Related Injury? No [email or web address] Information not available 06/24/2018 Sex: Unknown Functional Status None recorded. Mental Status None recorded. Family History Relationship Description Onset Age of this Age Resolved Age Notes LastModified by Organization Details LastModified Time Mother Family history of malignant neoplasm [email or web address] Not available 06/02 14:46:28 Notes:Positive for cancer. Medical History Condition Response multiple sclerosis N HIV or AIDS N asthma N ulcers N COPD N diabetes mellitus N head trauma N sleep apnea N deep vein thrombosis N anxiety disorder N arthritis N depression N high blood pressure N osteoporosis N peripheral arterial disease N kidney disease N prostate N liver disease N heart disease N pulmonary embolism N addiction N pacemaker N bleeding disorder N aneurysm N seizures N kidney stones N other N anemia N high cholesterol N cancer N heart attack ([place]) N blood clots N fibromyalgia Y anesthesia complications N urinary tract infection Y stroke N Gynecological HistoryNo gynecological history recorded. Obstetrics History GPAL:G 0 P 0 0 0 0 Past Encounters Encounter ID Performer Location Encounter Start Date Encounter Closed Date Diagnosis/Indication Diagnosis SNOMED-CT Code Diagnosis ICD10 Code Diagnosis Note [id number] Luis F Valle MD [facility] [address] [address] 02/01/2018 11:18:09 02/01/2018 13:06:11 Cervical disc disorder with radiculopathy 613868118 M50.120 M54.12 [id number] Luis F Valle MD [facility] [address] [address] 05/05/2018 14:51:39 05/05/2018 15:32:53 Cervical disc disorder with radiculopathy 122535147 M50.120 R20.0 Health Concerns Section Related Observation LastModified by Organization Detai ls LastModified Time None Recorded Concern Status LastModified by Organization Details LastModified Time None Recorded Advance Directives Directive None Recorded Payers Encounter Date Sequence Insurance Name Policy Number Policy Carlos Covered Member ID Carlos Member ID Guarantor Name 02/01/2018 1 [employer] (MEDICARE REPLACEMENT PPO) [id number] Ivet Vergara MEBNPSLJ Tyrone Guadalupe Ursula 05/05/2018 1 [employer] (MEDICARE REPLACEMENT PPO) [id number] Ivet Vergara MEBNPSLJ Tyrone Guadalupe Ursula Notes Date Note Type Note Provider Name and Address Organization Details Recorded Time 02/01/2018 text/html Ms. Ivet Vergara i s a 72-year-old, white female, well known to me having undergone an anterior cervical discectomy and fusion C4 to C7 on 07/31/2009. For the last six to eight weeks, she has had numbness down her left arm. This began atraumatically. She notes numbness in her left third, fourth and fifth digits. She has no right-sided symptomatology. She now seeks my advice. Luis F Valle MD [address] [place] [address], [place], [address], [facility] 02/02/2018 14:20:33 05/05/2018 text/html Ms. Ivet Vergara returns. She has found physical therapy helpful, though she does continue to have some numbness and tingling in the left third, fourth and fifth digits. Her EMG was normal. Luis F Valle MD [address] [place] [address], [place], [address], [facility] 05/06/2018 14:30:00 OBGyn Episode No OBEpisode recorded.
[2024-12-06] MEDS: LACTATED RINGERS 1,000 ML 30 ML IV CONT ×2 (08:05→12:51)
[2024-12-06] MEDS: ACETAMINOPHEN 500 MG TABLET 1000 MG PO ×3 (08:16→23:53)
[2024-12-06 08:23] LABS: Hematocrit 34.7 % (37.0-47.0); Hemoglobin 10.9 g/dL (12.0-15.0)
[2024-12-06] MEDS: KETOROLAC 15 MG/ML VIAL (*BKC) IV PUSH (08:32)
--- NOTE | 2024-12-06 08:43 | WPDHPUPDATE1 ---
History and Physical Update Update Date/Time: 12/06/24 08:43 History and Physical has been reviewed, including an updated exam of the patient. There are NO changes in the patient's condition. Risks, benefits, and alternatives have been discussed and questions answered. Patient agrees to proceed with procedure.
--- NOTE | 2024-12-06 08:45 | P.HP_ITS ---
H&P: HPI History of Present Illness Date/Time: 12/06/24 08:45 Chief Complaint: Transverse colon polyp Narrative: This is a 79-year-old woman who presented with a recent finding of a large transverse colon polyp on colonoscopy. The area was biopsied and tattooed and biopsies showed evidence of tubular adenoma. She recently was admitted to the hospital for significant anemia. She was found to have iron deficient anemia which was suspicious for chronic blood loss from the polyp. She received 1 unit of packed red blood cells and has remained hemodynamically stable since then. Her hemoglobin this morning is at 10.9. She had also received iron infusions during her hospitalization. Review of Systems Review of Systems: All systems reviewed & are unremarkable except as noted in HPI and below Constitutional: Constitutional: Denies chills, Denies fever(s), Denies headache(s) and Denies weight loss Eyes: Eyes: Denies change in vision ENT: Denies dizziness, Denies headache(s), Denies neck mass and Denies throat swelling Cardiovascular: Cardiovascular: Denies chest pain, Denies lightheadedness and Denies dyspnea Respiratory: Respiratory: Denies cough, Denies dyspnea and Denies wheezing Gastrointestinal: Gastrointestinal: Denies abdominal pain, Denies change in bowel habits, Denies nausea and Denies vomiting Genitourinary: Genitourinary: Denies hematuria and Denies dysuria Musculoskeletal: Musculoskeletal: Reports as per HPI Integumentary/Breasts: Skin/Breast: Reports as per HPI Neurologic: Denies dizziness and Denies headache(s) Allergic/Immunologic: Allergic/Immunologic: Denies throat swelling and Denies wheezing [facility] Past Medical History Medical History Pulmonary hypertension Preoperative clearance CAD (coronary artery disease) Fibromyalgia Ankylosing spondylitis Cervical osteoarthritis Headache Migraine Congestive heart failure with left ventricular diastolic dysfunction Left shoulder pain Degenerative arthritis of knee, bilateral History of hiatal hernia IBS (irritable bowel syndrome) History of heart attack Headache Arthritis Surgical History Surgical History H/O colonoscopy with polypectomy 01/21/23 Dr. Mark History of rotator cuff surgery History of cataract surgery History of neck surgery History of foot surgery History of hand surgery History of axillary surgery History of tonsillectomy and adenoidectomy Family History Family History Mother Kidney malignancy Father Prostate carcinoma Social History Social History Social History: 08/16/24 very confident with medical forms Smoking packs per day: 0.25 Smoking cigarettes per day: 5.0 Years smoked: 20 Smoking pack-years: 5.00 Smoking status: Former smoker Tobacco type: cigarettes Smoking end date: 11/01/86 Alcohol intake: never Substance use: never Substance use type: does not use Do You Feel Safe in your Home?: Yes Lack of Transportation: No Lack of Food: Never True Current Housing: I Have Housing Concerned About Future Housing: No Difficulty Paying Gas/Electric Bills: No Difficulty Paying for Meds: No Currently Unemployed: No Education: Decline to Answer Difficulty w/ Childcare or Family Care: No Living arrangements: with family Additional living arrangements comments: Occupation/Education: retired Gender identity (if verbalized by the patient): Female Sexual Orientation (if Verbalized by the Patient): Straight or Heterosexual Spiritual care concerns: Yes ([place]ze) Meds Home Medications and Allergies Home Medications ?Medication ?Instructions ?Recorded ?Confirmed ?Type valacyclovir 500 mg tablet 500 mg PO BID 10/07/22 12/06/24 History multivitamin 1 tablet PO DAILY 04/06/23 12/06/24 History amiodarone 200 mg tablet 200 mg PO DAILY #90 tabs 07/10/24 12/06/24 Rx amitriptyline 10 mg tablet 10 mg PO QHS #90 tabs 07/10/24 12/06/24 Rx apixaban 5 mg tablet (Eliquis) 5 mg PO BID #180 tabs 07/10/24 12/06/24 Rx furosemide 20 mg tablet 20 mg PO DAILY #90 tabs 07/10/24 12/06/24 Rx metoprolol succinate 25 mg 25 mg PO DAILY #180 tabs 07/10/24 12/06/24 Rx tablet,extended release 24 hr budesonide-formoterol HFA 160 2 puff inhalation Q12H #10.2 grams 09/26/24 12/06/24 Rx mcg-4.5 mcg/actuation aerosol inhaler (Symbicort) albuterol sulfate 90 mcg/actuation 2 inh inhalation Q4H PRN shortness 10/02/24 12/06/24 Rx aerosol inhaler of breath or wheezing #8.5 grams pravastatin 10 mg tablet 10 mg PO DAILY #90 tabs 10/02/24 12/06/24 Rx estradiol 1 mg tablet 1 mg PO DAILY #30 tabs 11/14/24 12/06/24 Rx pantoprazole 40 mg tablet,delayed See Rx Instructions .Route 11/23/24 12/06/24 Rx release .COMPLEX #180 tabs acetaminophen 325 mg capsule 325 mg PO ONCE PRN pain 11/28/24 12/06/24 History (Tylenol) baclofen 10 mg tablet 10 mg PO TID PRN muscle spasm 11/29/24 12/06/24 History benzonatate 100 mg capsule 100 mg PO TID PRN cough 11/29/24 12/06/24 History ciprofloxacin HCl 500 mg tablet See Rx Instructions .Route 11/30/24 12/06/24 Rx .COMPLEX #1 tablet metronidazole 500 mg tablet See Rx Instructions .Route 11/30/24 12/06/24 Rx .COMPLEX #3 tabs Allergies Allergy/AdvReac Type Severity Reaction Status Date / Time Opioids - Morphine Analogues Allergy Severe Swelling Verified 12/06/24 07:52 tramadol (From Ultracet) AdvReac Severe Itching Verified 12/06/24 07:52 ubrogepant (From Ubrelvy) AdvReac Severe Headache Verified 12/06/24 07:52 atogepant (From Qulipta) AdvReac Intermediate Headache Verified 12/06/24 07:52 Exam Const: General: no acute distress and alert Orientation/consciousness: patient oriented x3 HENMT: Head: normocephalic and atraumatic Ears: hearing grossly normal bilaterally Face/Nose/Sinus: Normal nares present Mouth: Yes Normal oral and palatal mucosa present Eyes: Periorbital: periorbital findings normal Sclera: sclerae normal EOM: EOMs intact bilaterally Neck: Neck: normal visual inspection, no lymphadenopathy and trachea midline Chest: Chest palpation & inspection: normal inspection of the chest Resp: Effort & Inspection: normal respiratory effort Auscultation: clear to auscultation bilaterally Cardio: Jugular venous distension: no JVD Rate: regular rate Rhythm: regular rhythm Heart sounds: S1 normal heart sound present and S2 normal heart sound present Peripheral pulses: Peripheral pulses 2+ throughout GI: Inspection: normal to inspection GI Palp: Yes Soft to palpation, No Tenderness to palpation present (GI), No Guarding due to palpation present (GI) and No Rebound tenderness present Percussion: Yes normal to percussion Auscultation: normal bowel sounds : General: Yes no CVA tenderness Back/Spine/Pelvis: Back: no CVA tenderness Neuro: General: patient oriented x3, no focal motor deficits and CN's II-XI intact bilaterally Cognition (Neuro): normal cognition Speech: normal speech Motor exam (neuro): 5/5 motor strength present throughout Extrem: General: capillary refill normal and no clubbing, cyanosis or edema H&P: Results Labs Labs: Short CBC 12/06/24 Range/Units 08:13 Hgb 10.9 L D (12.0-15.0) g/dL Hct 34.7 L (37.0-47.0) % Assessment and Plan Assessment and plan (1) Adenomatous polyp of transverse colon: Code(s): D12.3 - Benign neoplasm of transverse colon Status: Acute Assessment and Plan: * I have recommended laparoscopic transverse colectomy, da Elif assisted. I have discussed the procedure, risks, benefits, and alternatives with the p atient. All questions answered. No changes since last seen in office. (2) HARRIETT (iron deficiency anemia): Qualifiers: Iron deficiency anemia type: chronic blood loss Qualified Code(s): D50.0 - Iron deficiency anemia secondary to blood loss (chronic) Code(s): D50.9 - Iron deficiency anemia, unspecified Status: Acute (3) Pulmonary hypertension: Code(s): I27.20 - Pulmonary hypertension, unspecified Status: Acute
[2024-12-06] MEDS: metroNIDAZOLE 500 MG/ISO 100ML 500 MG/100 ML BAG 100 MG IVPB (08:50)
--- NOTE | 2024-12-06 09:12 | WPDANESEPPF ---
Anes - Initial Pre Proc Eval Procedure: Operation Date: 12/06/24 09:00 Proposed Procedures p Laparoscopic Transverse Colectomy, Davinci Assisted - Gera Miranda DO Date/Time: 12/06/24 09:12 Surgeon: Gera Miranda DO Pre Op Diagnosis: transverse colon polyp Patient Data Age: 79 Gender: F Height: 1.7 m Weight: 75.8 kg Last Vital Signs Temp 97.8 F 11/27/24 10:41 Pulse 61 11/27/24 10:41 Resp 16 11/27/24 10:41 Pulse Ox 100 11/27/24 10:41 O2 Del Method Room Air 11/28/24 10:19 Allergies Allergy/AdvReac Type Severity Reaction Status Date / Time Opioids - Morphine Analogues Allergy Severe Swelling Verified 12/06/24 07:52 tramadol (From Ultracet) AdvReac Severe Itching Verified 12/06/24 07:52 ubrogepant (From Ubrelvy) AdvReac Severe Headache Verified 12/06/24 07:52 atogepant (From Qulipta) AdvReac Intermediate Headache Verified 12/06/24 07:52 Home Medications ?Medication ?Instructions ?Recorded ?Confirmed ?Type valacyclovir 500 mg tablet 500 mg PO BID 10/07/22 12/06/24 History multivitamin 1 tablet PO DAILY 04/06/23 12/06/24 History amiodarone 200 mg tablet 200 mg PO DAILY #90 tabs 07/10/24 12/06/24 Rx amitriptyline 10 mg tablet 10 mg PO QHS #90 tabs 07/10/24 12/06/24 Rx apixaban 5 mg tablet (Eliquis) 5 mg PO BID #180 tabs 07/10/24 12/06/24 Rx furosemide 20 mg tablet 20 mg PO DAILY #90 tabs 07/10/24 12/06/24 Rx metoprolol succinate 25 mg 25 mg PO DAILY #180 tabs 07/10/24 12/06/24 Rx tablet,extended release 24 hr budesonide-formoterol HFA 160 2 puff inhalation Q12H #10.2 grams 09/26/24 12/06/24 Rx mcg-4.5 mcg/actuation aerosol inhaler (Symbicort) albuterol sulfate 90 mcg/actuation 2 inh inhalation Q4H PRN shortness 12/02/24 02/05/25 Rx aerosol inhaler of breath or wheezing #8.5 grams pravastatin 10 mg tablet 10 mg PO DAILY #90 tabs 10/02/24 12/06/24 Rx estradiol 1 mg tablet 1 mg PO DAILY #30 tabs 11/14/24 12/06/24 Rx pantoprazole 40 mg tablet,delayed See Rx Instructions .Route 11/23/24 12/06/24 Rx release .COMPLEX #180 tabs acetaminophen 325 mg capsule 325 mg PO ONCE PRN pain 11/28/24 12/06/24 History (Tylenol) baclofen 10 mg tablet 10 mg PO TID PRN muscle spasm 11/29/24 12/06/24 History benzonatate 100 mg capsule 100 mg PO TID PRN cough 11/29/24 12/06/24 History ciprofloxacin HCl 500 mg tablet See Rx Instructions .Route 11/30/24 12/06/24 Rx .COMPLEX #1 tablet metronidazole 500 mg tablet See Rx Instructions .Route 11/30/24 12/06/24 Rx .COMPLEX #3 tabs Laboratory Tests 12/06/24 08:13 Hgb 10.9 L D g/dL (12.0-15.0) Hct 34.7 L % (37.0-47.0) Blood Type Pending Antibody Screen Pending Patient hx anesthesia problems: none Family hx anesthesia problems: none Results Review: All pre-operative results and documents have been reviewed as part of the pre-operative evaluation. [facility] Past Medical History Medical History Pulmonary hypertension Preoperative clearance CAD (coronary artery disease) Fibromyalgia Ankylosing spondylitis Cervical osteoarthritis Headache Migraine Congestive heart failure with left ventricular diastolic dysfunction Left shoulder pain Degenerative arthritis of knee, bilateral History of hiatal hernia IBS (irritable bowel syndrome) History of heart attack Headache Arthritis Surgical History Surgical History H/O colonoscopy with polypectomy 01/21/23 Dr. Mark History of rotator cuff surgery History of cataract surgery History of neck surgery History of foot surgery History of hand surgery History of axillary surgery History of tonsillectomy and adenoidectomy Family History Family History Mother Kidney malignancy Father Prostate carcinoma Social History Social History Social History: 08/16/24 very confident with medical forms Smoking packs per day: 0.25 Smoking cigarettes per day: 5.0 Years smoked: 20 Smoking pack-years: 5.00 Smoking status: Former smoker Tobacco type: cigarettes Smoking end date: 11/01/86 Alcohol intake: never Substance use: never Substance use type: does not use Do You Feel Safe in your Home?: Yes Lack of Transportation: No Lack of Food: Never True Current Housing: I Have Housing Concerned About Future Housing: No Difficulty Paying Gas/Electric Bills: No Difficulty Paying for Meds: No Currently Unemployed: No Education: Decline to Answer Difficulty w/ Childcare or Family Care: No Living arrangements: with family Additional living arrangements comments: Occupation/Education: retired Gender identity (if verbalized by the patient): Female Sexual Orientation (if Verbalized by the Patient): Straight or Heterosexual Spiritual care concerns: Yes (Spiritism) Anes - Eval Final PreProcedure Day of Procedure 12/06/24 09:12 Patient weight: normal Heart: regular rate and rhythm Lungs: clear to auscultation Airway: Mallampati scale class II Neurological: alert and oriented Last oral intake: >/= 8 hours ASA classification: III Emergent: no Anesthetic plan: proceed Anesthesia type and monitoring: general ETT and standard monitoring Results Review: All pre-operative results and documents have been reviewed as part of the pre-operative evaluation. Informed Consent: The patient's anesthetic plan and its attendant risks and benefits were discussed with the patient/family/POA. Questions were solicited and answers provided to the satisfaction of the patient/family/POA.
[2024-12-06] MEDS: ceFAZolin 2 GM/D5W 50 ML 2 GM/50 ML BAG IVPB (09:21)
[2024-12-06] MEDS: BUPIVACAINE/EPINEPHRINE 0.5% 30 ML VIAL INFILTRATE (10:35)
[2024-12-06] MEDS: INDOCYANINE GREEN 25 MG VIAL WITH DILUENT 3.75 MG IV PUSH (12:11)
--- NOTE | 2024-12-06 12:58 | P.OP_ITS ---
Procedure Note - Detailed Date of Procedure 12/06/24 Pre-op Diagnosis transverse colon polyp Post-op Diagnosis Same Procedure Performed Laparoscopic transverse colectomy with anastomosis, da Elif assisted Surgeon Gera Miranda DO Anesthesia General and Local (0.5% bupivacaine with epi) Indications This is a 79-year-old woman who presented with a large polyp in the transverse colon. She underwent colonoscopy for a history of colon polyps and was found to have a large polyp in the midtransverse colon. This was tattooed and biopsies showed evidence of adenoma. The patient was also noted to be more significantly anemic. Her preoperative labs showed a hemoglobin of 6.8 and she was subsequently admitted for further workup and found to have iron deficient anemia. Her 1st stool occult blood test was negative, but then she had a subsequent 1 which was positive. It was felt that the polyp was possibly the source bleeding. She responded appropriately to 1 unit of packed red blood cells and received iron infusions and was then able to be discharged from the hospital. She now presents for robotic assisted laparoscopic transverse colectomy. Her preoperative hemoglobin this morning was 10.9. Findings Robotic assisted laparoscopic transverse colectomy with anastomosis was performed. The tattooed region was identified on the mid transverse colon. There appeared to be adequate length of transverse colon to perform a segmental resection with anastomosis. A high ligation of the middle colic artery was performed. An end-to-end robotically sewn anastomosis was then performed. The specimen was sent to the lab for pathology. No other intra-abdominal abnormalities were noted. Description of Procedure Procedure as well as risks, benefits, and alternatives were discussed with the patient. Written consent was obtained and placed in chart prior to procedure. Patient was brought back to surgical suite. She was placed supine on operating table. Time-out was done to confirm patient and procedure. She was then intubated by the anesthesia department. Her abdomen was then prepped and draped in sterile fashion using chlorhexidine prep. An 8 mm incision was made in the left subcostal region and a 5 mm Optiview trocar was advanced through the abdominal layers under direct visualization. Once inside the abdominal cavity, carbon dioxide insufflation was used to create a pneumoperitoneum. The camera was inserted in the abdomen was inspected. No mediated abnormalities were identified and the tattooed region of the mid transverse colon was visualized. An 8 mm incision was then made in the infraumbilical midline region and an 8 mm trocar was placed under direct visualization. A 12 mm incision was made in the left lower quadrant and a 12 mm trocar was inserted under direct visualization. An 8 mm incision was made in the left lateral lower abdomen and an 8 mm trocar was inserted under direct visualization. One more 8 mm incision was made in the right lower quadrant and an 8 mm trocar was inserted under direct visualization. The 5 mm port was then removed and this was replaced with an 8 mm AirSeal anesthesiologist assistant certified port. The robotic arms were then brought up to the bedside and secured to the ports. The camera and robotic instruments were then inserted. I then moved over to the robotic console and took control of the camera and instruments. Thorough inspection of the abdominal cavity was performed and then the omentum was reflected cephalad over the stomach. There was 1 omental adhesion in the left lower quadrant to an epiploic appendage and this was taken down using scissors with electrocautery. There were then a few adhesions near where the tattooed region of the colon was and these were also taken down using scissors with electrocautery. I was then able to lift the mid transverse colon anteriorly and identify the middle colic vascular pedicle. The peritoneum over this surface was scored using scissors with electrocautery and careful dissection was then performed within the mesocolon using scissors with electrocautery. I eventually was then able to encircle the middle colic artery. The middle colic artery was then ligated and divided using the vessel sealer. Hemostasis appeared adequate. I then continued my dissection along the mesocolon up towards the proximal transverse colon about 6-8 cm proximal to the tattoo and also continued the dissection towards the distal transverse colon 6-8 cm distal to the tattoo. While doing this I was able to enter into the lesser sac and visualize the stomach and duodenum. The dissection was carried out to our planned resection margins. I then divided the gastrocolic ligament using the vessel sealer and continued this medial and lateral far enough to allow for our segmental resection. I then also divided the omentum in the planned resection locations using the vessel sealer. Once this was completed I then assessed the perfusion to the proximal and distal transverse colon using indocyanine green. Perfusion appeared adequate at both locations. A 60 mm blue load robotic stapler was then advanced across the distal resection margin and clamped and fired. The same was then done to the proximal resection margin. This was then freed up completely and the specimen was placed in the lower abdomen to be extracted at the end of the procedure. The 2 ends of stapled margins were then brought together in the midline. Both ends appeared to come together without any tension. 3-0 Vicryl simple interrupted sutures were placed at the cephalad and caudad edges of the staple line. The staple lines were sewn together using a 3 0 V lock running absorbable suture. A 3 cm colotomy was then made on the anterior surface of each end of the transverse colon. Three 0 V lock running absorbable suture was then used to perform a robotic sewn anastomosis. This was started in the midportion of the posterior side of the anastomosis and run cephalad and caudad. A running Bill suture was then p erformed along the anterior surface of the colon. The 2 sutures were then tied down in the center once they met. Another 3 0 V lock running absorbable suture was then used to perform a 2nd layer closure on the anterior surface of the anastomosis using seromuscular imbricating running suture. The anastomosis was then inspected and appeared secure. Indocyanine green was infused 1 more time to assess perfusion at the anastomosis which appeared excellent. No other intra-abdominal abnormalities were noted and hemostasis appeared adequate. A bowel clamp was then placed on the specimen. The camera and instruments were then removed. The robotic arms were disengaged from the ports. The ports were then removed and the pneumoperitoneum was released. The 12 mm port site was then extended to about 2 cm wide using a 15 blade scalpel. Electrocautery was then used for hemostasis and for dissection down to the anterior rectus fascia. The anterior rectus fascia was then incised vertically to widen the fascial opening. The Dwight wound protector was then inserted. The specimen was then delivered to this incision and the specimen was extracted. The wound protector was then removed. The posterior rectus sheath and peritoneum was then reapproximated using 0 Vicryl [id number] sutures. The anterior rectus sheath was then reapproximated using 0 PDS [id number] sutures. 0.5% b upivacaine with epinephrine was infiltrated locally around each of the incision sites. The skin of the incisions was then approximated using 4-0 Monocryl running subcuticular sutures. Exofin glue was then applied on top. The patient was then awakened from anesthesia, extubated, and transferred to recovery. Estimated Blood Loss 20 Pathology Yes (Transverse colon) Complications No immediate complications Condition Stable Disposition Floor [facility] Billing Surgery - Charge Forward: Surgery Billing
--- NOTE | 2024-12-06 14:33 | ADMGEN ---
This patient, Ivet Walton, was admitted to Medical Room 345-01. Patient/family oriented to hospital policies and general routines including ID bracelet, bed and alarms, visiting hours, pain management, procedures, bathroom and other care routines, personal items, smoking policy, room service/diet, and visiting hours. Information on how to activate the Rapid Response Team has been discussed. Patient/Family are encouraged to report perceived risks to care and to ask questions if they do not understand what they are told or what they should do.
[2024-12-06] MEDS: LACTATED RINGERS 1,000 ML 100 ML IV CONT ×2 (15:45→23:57)
[2024-12-06] MEDS: valACYclovir HCL 500 MG TABLET PO (17:06)
--- NOTE | 2024-12-06 17:36 | PC.NURSE ---
On 12/06/24, the student, Diann Delacruz, provided care and completed [facility] documentation on this patient. I have reviewed the student's documentation and agree with the findings.
[2024-12-06] MEDS: AMITRIPTYLINE HCL 10 MG TABLET PO (20:30)
[2024-12-06] MEDS: PANTOPRAZOLE 40 MG TABLET PO (20:30)
[2024-12-06] MEDS: FLUTICASONE/SALMETEROL 115-21 MCG INHALER 1 PUFF 2 PUFF INHALATION (20:51)
[2024-12-06] MEDS: oxyCODONE HCL (*CRX) 2.5 MG TAB IR PO (21:36)
[2024-12-07 00:06] VITALS: BP 118/46; PULSE 67; RESP 16; TEMP 36.5; O2SAT 96
[2024-12-07] MEDS: oxyCODONE HCL (*CRX) 5 MG TAB IR PO ×3 (02:05→17:06)
[2024-12-07 04:23] VITALS: BP 137/58; PULSE 65; RESP 16; TEMP 36.4; O2SAT 100
[2024-12-07] MEDS: ACETAMINOPHEN 500 MG TABLET 1000 MG PO ×4 (05:04→23:28)
[2024-12-07 06:30] LABS: Hematocrit 33.3 % (37.0-47.0); Hemoglobin 10.1 g/dL (12.0-15.0); Mean Corpuscular HGB Conc 30.3 g/dl (32-36); Mean Corpuscular Hemoglobin 26.8 pg (26-34); Mean Corpuscular Volume 88.3 fl (80-100); Mean Platelet Volume 10.7 fl (7.4-10.4); Platelet Count Result 205 k/mm3 (150-375); Red Blood Count 3.77 M/mm3 (4.2-5.4); Red Cell Distribution Width 20.6 % (11.5-14.5); White Blood Count 10.4 K/mm3 (4.5-10.0)
[2024-12-07 06:37] LABS: Anion Gap 10 mmol/L (4-12); Blood Urea Nitrogen 11 mg/dL (7-17); Calcium 8.4 mg/dL (8.4-10.2); Carbon Dioxide 25 mmol/L (22-30); Chloride 99 mmol/L (98-107); Estimated CRCL calculation 44 ml/min; Estimated Glomerular Filt Rate 60; Glucose 93 mg/dL (65-110); Potassium 3.6 mmol/L (3.4-5.0); Sodium 134 mmol/L (137-145)
--- NOTE | 2024-12-07 08:13 | P.PNGS_ITS ---
Progress Note: A&P Assessment and Plan (1) Adenomatous polyp of transverse colon: Code(s): D12.3 - Benign neoplasm of transverse colon Status: Acute Assessment and Plan: * Advance to full liquids. Stop IV fluids * Increase activity * Await return of bowel function * Final pathology pending (2) HARRIETT (iron deficiency anemia): Qualifiers: Iron deficiency anemia type: chronic blood loss Qualified Code(s): D50.0 - Iron deficiency anemia secondary to blood loss (chronic) Code(s): D50.9 - Iron deficiency anemia, unspecified Status: Acute (3) Pulmonary hypertension: Code(s): I27.20 - Pulmonary hypertension, unspecified Status: Acute Subjective Subjective Date/Time Seen: 12/07/24 08:13 Interval history: Pain control improving, but said she was having a lot of pain last night. No nausea. No flatus or BM. Tolerating clears. Exam GI: Inspection: non-distended and incision (intact with glue) GI Palp: Yes Soft to palpation, Yes Tenderness to palpation present (GI) (incisional) and No Guarding due to palpation present (GI) Auscultation: normal bowel sounds Objective Data Vital Signs Vital Signs: Vital Signs - 24 hr 12/06/24 12:51 12/06/24 13:00 12/06/24 13:15 Temperature 97.3 F L Pulse Rate 51 L 50 L 55 L Respiratory Rate 12 12 14 Blood Pressure 113/55 L 122/53 L 130/53 L Pulse Oximetry 99 100 100 Oxygen Delivery Simple Face Mask Simple Face Mask Simple Face Mask Oxygen Flow Rate 8 8 8 12/06/24 13:30 12/06/24 13:45 12/06/24 14:00 Temperature Pulse Rate 55 L 55 L 55 L Respiratory Rate 16 14 12 Blood Pressure 133/56 L 132/59 L 140/57 L Pulse Oximetry 94 97 99 Oxygen Delivery Room Air Nasal Cannula Nasal Cannula Oxygen Flow Rate 2 2 12/06/24 14:15 12/06/24 14:40 12/06/24 14:55 Temperature 97.4 F L 97.3 F L Pulse Rate 56 L 56 L 52 L Respiratory Rate 12 16 16 Blood Pressure 140/63 138/51 L 146/54 H Pulse Oximetry 98 100 100 Oxygen Delivery Nasal Cannula Oxygen Flow Rate 2 12/06/24 15:25 12/06/24 20:06 12/07/24 00:06 Temperature 97.4 F L 97.3 F L 97.7 F Pulse Rate 55 L 61 67 Respiratory Rate 16 16 16 Blood Pressure 140/46 L 122/45 L 118/46 L Pulse Oximetry 99 97 96 Oxygen Delivery Oxygen Flow Rate 12/07/24 04:23 Temperature 97.6 F Pulse Rate 65 Respiratory Rate 16 Blood Pressure 137/58 L Pulse Oximetry 100 Oxygen Delivery Oxygen Flow Rate Intake/Output Intake/Output: Intake & Output 12/04/24 12/05/24 12/06/24 12/07/24 23:59 23:59 23:59 23:59 Intake Total 1490 300 Balance 1490 300 Meds/Results Medications: Active Medications Generic Name Dose Route Start Last Admin Trade Name Freq PRN Reason Stop Dose Admin Acetaminophen 1,000 mg 12/06/24 18:00 12/07/24 05:04 Acetaminophen 500 Mg Tablet PO 1,000 mg Q6HR [facility] Administration Albuterol 2 puff 12/06/24 14:21 Albuterol Sulfate (*Sp) Aerosol 1 Puff INHALATION Q4H PRN shortness of breath or wheezing Amiodarone HCl 200 mg 12/07/24 09:00 Amiodarone Hcl 200 Mg Tablet PO DAILY [facility] Amitriptyline HCl 10 mg 12/06/24 21:00 12/06/24 20:30 Amitriptyline Hcl 10 Mg Tablet PO 10 mg QHS YUSEF Administration Baclofen 10 mg 12/06/24 14:21 Baclofen 10 Mg Tablet PO TID PRN muscle spasm Benzonatate 100 mg 12/06/24 14:21 Benzonatate 100 Mg Capsule PO TID PRN cough Enoxaparin Sodium 40 mg 12/07/24 09:00 Enoxaparin 40 Mg/0.4 Ml Syringe SUB-Q DAILY [facility] Estradiol 1 mg 12/07/24 09:00 Estradiol 1 Mg Tablet PO DAILY [facility] Metoprolol Succinate 25 mg 12/07/24 09:00 Metoprolol Succinate Ext Rel 25 Mg Tabcr PO DAILY [facility] Naloxone HCl 0.1 mg 12/06/24 14:21 Naloxone Hcl 0.4 Mg/Ml Vial IV PUSH Q2M PRN Opiate Reversal Ondansetron HCl 4 mg 12/06/24 14:21 Ondansetron Inj 4 Mg/2 Ml Vial IV PUSH Q4H PRN Nausea And Vomiting Oxycodone HCl 2.5 mg 12/06/24 14:21 12/06/24 21:36 Oxycodone Hcl (*Crx) 2.5 Mg Tab Ir PO 2.5 mg Q4H PRN Administration Pain Rated 4-6 Oxycodone HCl 5 mg 12/06/24 14:21 12/07/24 05:58 Oxycodone Hcl (*Crx) 5 Mg Tab Ir PO 5 mg Q4H PRN Administration Pain Rated 7-10 Pantoprazole Sodium 40 mg 12/06/24 21:00 12/06/24 20:30 Pantoprazole 40 Mg Tablet PO 40 mg Q12HR YUSEF Administration Pravastatin Sodium 10 mg 12/07/24 09:00 Pravastatin Sodium 10 Mg Tablet PO DAILY YUSEF Fluticasone/Salmeterol 2 puff 12/06/24 20:00 12/06/24 20:51 Fluticasone/Salmeterol 115-21 Mcg Inhaler 1 Puff INHALATION 2 puff Q12HRT YUSEF Administration Valacyclovir HCl 500 mg 12/06/24 17:00 12/06/24 17:06 Valacyclovir Hcl 500 Mg Tablet PO 500 mg BID YUSEF Administration Labs Labs: Laboratory Results - last 24 hr 12/06/24 12/07/24 08:13 05:53 WBC 10.4 H RBC 3.77 L Hgb 10.9 L D 10.1 L Hct 34.7 L 33.3 L MCV 88.3 D MCH 26.8 MCHC 30.3 L RDW 20.6 H Plt Count 205 MPV 10.7 H Sodium 134 L Potassium 3.6 Chloride 99 Carbon Dioxide 25 Anion Gap 10 BUN 11 D Creatinine 0.91 Estim Creat Clear Calc 44 Estimated GFR 60 Glucose 93 Calcium 8.4 Blood Type A Positive Antibody Screen Negative
[2024-12-07 08:23] VITALS: PULSE 65
[2024-12-07] MEDS: PRAVASTATIN SODIUM 10 MG TABLET PO (08:23)
[2024-12-07] MEDS: METOPROLOL SUCCINATE EXT REL 25 MG TABCR PO (08:23)
[2024-12-07] MEDS: estradioL 1 MG TABLET PO (08:23)
[2024-12-07] MEDS: ENOXAPARIN 40 MG/0.4 ML SYRINGE SUB-Q (08:23)
[2024-12-07] MEDS: valACYclovir HCL 500 MG TABLET PO ×2 (08:23→17:06)
[2024-12-07] MEDS: PANTOPRAZOLE 40 MG TABLET PO ×2 (08:23→20:05)
[2024-12-07] MEDS: AMIODARONE HCL 200 MG TABLET PO (08:23)
[2024-12-07] MEDS: FLUTICASONE/SALMETEROL 115-21 MCG INHALER 1 PUFF 2 PUFF INHALATION ×2 (09:21→21:07)
[2024-12-07 09:25] VITALS: PULSE 77; RESP 18
[2024-12-07] MEDS: oxyCODONE HCL (*CRX) 2.5 MG TAB IR PO (12:46)
[2024-12-07 14:00] VITALS: BP 140/72; PULSE 75; RESP 18; TEMP 36.6; O2SAT 100
[2024-12-07] MEDS: AMITRIPTYLINE HCL 10 MG TABLET PO (20:05)
[2024-12-07 20:51] VITALS: BP 106/50; PULSE 58; RESP 16; TEMP 36.8; O2SAT 95
[2024-12-08] MEDS: ACETAMINOPHEN 500 MG TABLET 1000 MG PO ×2 (05:13→11:58)
[2024-12-08 06:00] VITALS: BP 124/44; PULSE 77; RESP 16; TEMP 36.8; O2SAT 94
[2024-12-08 06:21] LABS: Hematocrit 33.3 % (37.0-47.0); Hemoglobin 10.2 g/dL (12.0-15.0); Mean Corpuscular HGB Conc 30.6 g/dl (32-36); Mean Corpuscular Volume 88.1 fl (80-100); Mean Platelet Volume 10.7 fl (7.4-10.4); Platelet Count Result 189 k/mm3 (150-375); Red Blood Count 3.78 M/mm3 (4.2-5.4); Red Cell Distribution Width 21.2 % (11.5-14.5); White Blood Count 7.5 K/mm3 (4.5-10.0)
[2024-12-08 06:47] LABS: Anion Gap 8 mmol/L (4-12); Blood Urea Nitrogen 13 mg/dL (7-17); Calcium 8.3 mg/dL (8.4-10.2); Carbon Dioxide 25 mmol/L (22-30); Chloride 99 mmol/L (98-107); Estimated CRCL calculation 43 ml/min; Estimated Glomerular Filt Rate 58; Glucose 84 mg/dL (65-110); Potassium 4.2 mmol/L (3.4-5.0); Sodium 132 mmol/L (137-145)
[2024-12-08] MEDS: FLUTICASONE/SALMETEROL 115-21 MCG INHALER 1 PUFF 2 PUFF INHALATION (07:26)
[2024-12-08] MEDS: METOPROLOL SUCCINATE EXT REL 25 MG TABCR PO (08:50)
[2024-12-08] MEDS: ENOXAPARIN 40 MG/0.4 ML SYRINGE SUB-Q (08:50)
[2024-12-08] MEDS: PRAVASTATIN SODIUM 10 MG TABLET PO (08:50)
[2024-12-08] MEDS: estradioL 1 MG TABLET PO (08:50)
[2024-12-08] MEDS: PANTOPRAZOLE 40 MG TABLET PO (08:50)
[2024-12-08] MEDS: AMIODARONE HCL 200 MG TABLET PO (08:50)
[2024-12-08] MEDS: valACYclovir HCL 500 MG TABLET PO (08:50)
[2024-12-08] MEDS: oxyCODONE HCL (*CRX) 5 MG TAB IR PO (11:58)
[2024-12-08 14:00] VITALS: BP 131/57; PULSE 67; RESP 18; TEMP 35.9; O2SAT 96
--- NOTE | 2024-12-08 14:50 | P.DS_ITS ---
DS: Admitting Diagnosis Discharge Date 12/08/2024 Admitting Diagnosis Adenomatous polyp of transverse colon, iron deficiency anemia, pulmonary hypertension DS: Discharge Diagnosis Discharge Diagnosis (1) Adenomatous polyp of transverse colon: Code(s): D12.3 - Benign neoplasm of transverse colon Status: Acute (2) Pulmonary hypertension: Code(s): I27.20 - Pulmonary hypertension, unspecified Status: Acute (3) HARRIETT (iron deficiency anemia): Qualifiers: Iron deficiency anemia type: chronic blood loss Qualified Code(s): D50.0 - Iron deficiency anemia secondary to blood loss (chronic) Code(s): D50.9 - Iron deficiency anemia, unspecified Status: Acute DS: Summary Hospital Course Reason for hospitalization: Adenomatous polyp of transverse colon Hospital Course: This is a 79-year-old woman who presented for robotic assisted laparoscopic transverse colectomy on 12/06/2024. She had recently undergone colonoscopy and was found to have a large transverse colon polyp that could not be removed endoscopically. She was also noted to be anemic and did require 1 unit of packed red blood cell transfusion last week. She has remained hemodynamically stable since and her hemoglobin the morning of surgery was 10.9. She was admitted to the hospital after undergoing robotic assisted laparoscopic transverse colectomy. Surgery was uncomplicated. She was started on clear liquid diet postoperatively. Diet and activity were gradually advanced as tolerated. On postop day 1 she was tolerating clear liquids and advanced to a full liquid diet. She had multiple bowel movements on postoperative day 1 and day 2. She was advanced to a soft low-fiber diet on postop day 2. She tolerated this well and was remaining hemodynamically stable. She was discharged on 12/08/2024. Pathology showed evidence of tubular adenoma and no evidence of malignancy. Status at Discharge Functional status at discharge: independent ambulation Overall status at discharge: patient is progressing back to baseline Time Spent with Patient Time attestation: Total time spent providing and/or coordinating discharge services: Time spent: Less than 30 minutes Exam Const: General: comfortable and no acute distress Orientation/consciousness: patient oriented x3 Resp: Effort & Inspection: normal respiratory effort Auscultation: clear to auscultation bilaterally Cardio: Rate: regular rate Rhythm: regular rhythm Heart sounds: S1 normal heart sound present and S2 normal heart sound present GI: Inspection: non-distended and incision (Intact with glue) GI Palp: Yes Soft to palpation and Yes Tenderness to palpation present (GI) (Minimal incision) Auscultation: normal bowel sounds DS: Data Data Completed and Pending Completed studies during hospitalization: Pending at discharge 12/06/24 12:29 Surgical [PTH] Routine Final Diagnosis Large intestine, transverse colon, transverse colectomy: - Three tubular adenomas, largest 3.2 cm - Margins negative for tubular adenoma - Four benign lymph nodes Reviewed and Electronically Signed by: Donte Perkins MD 12/08/24 1126 Labs on day of discharge: Labs from last 24 hours 12/08/24 06:05 WBC 7.5 RBC 3.78 L Hgb 10.2 L Hct 33.3 L MCV 88.1 MCH 27.0 MCHC 30.6 L RDW 21.2 H Plt Count 189 MPV 10.7 H Sodium 132 L Potassium 4.2 Chloride 99 Carbon Dioxide 25 Anion Gap 8 BUN 13 Creatinine 0.93 Estim Creat Clear Calc 43 Estimated GFR 58 L Glucose 84 Calcium 8.3 L Discharge Plan Discharge Attending physician on discharge: Gera Miranda Discharging Clinician: Gera Miranda Patient Disposition: Home, Self-Care Activity: other - see discharge instructions Diet: low fiber Wound Care Instructions: other - see discharge instructions Discharge Instructions: Postoperative instructions * No lifting greater than 10 lb for the next 6 weeks * Okay to shower, no bathing or soaking underwater for 2 weeks * May drive in 1 week if no longer taking narcotic pain meds * Take OTC MiraLax or milk of magnesia as needed for constipation * Maintain a soft, low-fiber diet for the next week, then may resume regular diet without restrictions * Call office for increasing pain, fevers, or problems with incisions Patient Instructions: Antibiotic Form, Heart Failure (DC) Patient Language: Croatian Stand Alone Forms: General Discharge Information Follow-up/Referrals: Gera Miranda DO [Physician] - 12/22/24 9:15 am Discharge Medications: New oxycodone-acetaminophen [Endocet] 5-325 mg tablet 0.5 - 1 tablet PO Q4H PRN (Reason: pain) Qty: 15 0RF Continued multivitamin Tablet 1 tablet PO DAILY metoprolol succinate 25 mg tablet extended release 24 hr 25 mg PO DAILY Qty: 180 1RF furosemide 20 mg tablet 20 mg PO DAILY Qty: 90 2RF Eliquis 5 mg tablet 5 mg PO BID Qty: 180 1RF amiodarone 200 mg tablet 200 mg PO DAILY Qty: 90 1RF amitriptyline 10 mg tablet 10 mg PO QHS Qty: 90 2RF budesonide-formoterol [Symbicort] 160-4.5 mcg/actuation HFA aerosol inhaler 2 puff inhalation Q12H Qty: 10.2 3RF Rx Instructions: Rinse mouth and spit after each use valacyclovir 500 mg tablet 500 mg PO BID baclofen 10 mg tablet 10 mg PO TID PRN (Reason: muscle spasm) benzonatate 100 mg capsule 100 mg PO TID PRN (Reason: cough) acetaminophen [Tylenol] 325 mg capsule 325 mg PO ONCE PRN (Reason: pain) pravastatin 10 mg tablet 10 mg PO DAILY Qty: 90 1RF albuterol sulfate 90 mcg/actuation HFA aerosol inhaler 2 inh inhalation Q4H PRN (Reason: shortness of breath or wheezing) Qty: 8.5 0RF estradiol 1 mg tablet 1 mg PO DAILY Qty: 30 1RF pantoprazole 40 mg tablet,delayed release (DR/EC) See Rx Instructions .ROUTE .COMPLEX Qty: 180 1RF Dose Instruction: TAKE 1 TABLET BY MOUTH TWICE A DAY Rx Instructions: TAKE 1 TABLET BY MOUTH TWICE A DAY ciprofloxacin HCl 500 mg tablet See Rx Instructions .Route .COMPLEX Qty: 1 0RF Rx Instructions: Take 1 tablet by mouth at 2:00 PM the day prior to surgery.; metronidazole 500 mg tablet See Rx Instructions .Route .COMPLEX Qty: 3 0RF Rx Instructions: Take 1 tablet by mouth at 1:00PM, 2:00PM, and 11:00PM the day prior to surgery.; Date of admission: 12/06/24 14:22 Primary Care Provider: Maria Allen Admitting Provider: Gera Miranda Attending physician on admission: Gera Miranda Condition: Improved
== END 2024-12-08 15:19 | disposition home or self-care (01) | DRG 331 ==
LOC: ANH3MED 14:24
PROVIDERS: Anesthesiology; Admitting Provider Surgery; PCP Nurse Practitioner Family; Visit Provider Surgery
PROC: 0DTF4ZZ Resection of Right Large Intestine, Percutaneous Endoscopic Approach (ICD-10-PCS; principal; 2024-12-06 09:00)
DX: D12.3 Benign neoplasm of transverse colon (principal); D50.0 Iron deficiency anemia secondary to blood loss (chronic); I27.20 Pulmonary hypertension, unspecified; I25.10 Atherosclerotic heart disease of native coronary artery without angina pectoris; Z87.891 Personal history of nicotine dependence
CPT/HCPCS: 36415; 80048; 85014; 85018; 85027; 86850; 86900; 86901; 88309; 94640; A9270; J0690; J1100; J1171; J1650; J1836; J1885; J2003; J2405; J2704; J3010; J7120

== ENCOUNTER 2025-07-17 14:41 | Outpatient (CLI) | payer MEDICARE, SELFPAY ==
--- NOTE | ~2025-07-17 | CT_ITS ---
EXAMINATION: CT brain wo andrea, 07/17/2025 14:45 CDT HISTORY: Headache, unspecified COMPARISON: No comparisons available. Technique: Axial images obtained of the brain without contrast. One or more of the following dose reduction techniques were used: automated exposure control, adjustment of the mA and/or kV according to patient size, use of iterative reconstruction technique. Findings: No acute infarct or parenchymal hemorrhage. No abnormal mass or mass effect. No midline shift. No extra-axial fluid collections. No hydrocephalus. Mastoid air cells unremarkable. Sinuses and orbits unremarkable. No acute fracture. No significant facial or scalp soft tissue swelling evident. No radiopaque foreign body is seen. Impression: 1.No acute intracranial abnormality. Reviewed, dictated and finalized at location A. Impression: 1.No acute intracranial abnormality.
== END 2025-07-17 14:42 | disposition home or self-care (01) ==
LOC: MICIMG 14:42
PROVIDERS: PCP Nurse Practitioner Family; Visit Provider Nurse Practitioner Adult Health
DX: R51.9 Headache, unspecified (principal); Z91.81 History of falling
CPT/HCPCS: 70450

== ENCOUNTER 2025-08-28 11:09 | Outpatient (CLI) | payer MEDICARE, SELFPAY ==
--- OUTSIDE RECORDS SUMMARY | 2010-10-21 05:10 | XMS_ITS | Continuity of Care Document ---
Author Organization [facility] Address [address] [address] Phone Care Team Providers Care Personal Lines Account Manager Name Role Phone Chantal Marie MD Unavailable [...] OFFICE/OUTPAT IENT VISIT, EST [facility], [address] [place] [address], [id number], [place] tel:[phone] [place] [facility] No Information 0 Jorge Cornejo. [address] [place] [address], [id number], [place]. tel:[phone] OFFICE/OUTPAT IENT VISIT, EST [facility], [address] [place] [address], [id number], [place] tel:[phone] [place] [facility] No Information 0 Klippenstei n Chantal. [address] [place] [address], [address], [place], [place], [id number], [place]. tel:[phone] Referring Provider: Quan Prabhakar, [address] [facility] [address], [place], [address]. tel:[phone] [facility], [address] [place], [place] [address]ite 100, [place], [place], [id number], [place] tel:[phone] [place] [facility] No Information 0-201 0 Klippenstei n Chantal. [address] [place] [address], [address], [place], [place], [id number], [place]. tel:[phone] Referring Provider: Quan Prabhakar, [address] [facility] [address], [place], [address]. tel:[phone] [facility], [address] [place] [address] 100, [place], [place], [id number], [place] tel:[phone] [facility] [place] No Information 0 Nathantei n Chantal. [address] [place] [address], [address], [place], [place], [id number], [place]. tel:[phone] Referring Provider: Quan Prabhakar, [address] [facility] [address], [place], [address]. tel:[phone] [facility], [address] [place] [address] 100, [place], [place], [id number], [place] tel:[phone] [facility] No Information 0 [facility]. [address] [place] [address], [address], [place], [place], [id number]. tel:[phone] Referring Provider: Chantal Syed, [address] [place] [address] [address], [place], [address]. tel:[phone] [facility], [address] [place] [address] 100, [place], [place], [id number], [place] tel:[phone] [facility] No Information 0 Klippenstei n Chantal. [address] [place] [address], [facility] 100, [place], [place], [id number], [place]. tel:[phone] Referring Provider: Quan Prabhakar, [facility]0 [facility] [address], [place], [address]. tel:[phone] [facility], [address] [place] [address] 100, [place], [place], [id number], [place] tel:[phone] [facility] No Information 0 [facility]. [address] [place] [address], [address], [place], [place], [id number]. tel:[phone] Referring Provider: Chantal Syed, [address] [place] [address] 100, [place], [address]. tel:[phone] OFFICE CONSULTATION [facility], [address] [place] [address] 100, [place], [place], [id number], [place] tel:[phone] [facility] No Information 0 Klippenstei n Chantal. [address] [place] [address], [facility] 100, [place], [place], [id number], [place]. tel:[phone] Referring Provider: Quan Prabhakar, [facility]0 [facility] Suite [facility], [place], [address]. tel:[phone] [facility], [address] [place] [address], [place], [id number], [place] tel:[phone] [facility] No Information 0 Louisippenstei n Chantal. [address] [place] [address], [facility] [address], [place], [id number], [place]. tel:[phone] Referring Provider: Quan Prabhakar, [address] [facility] [address], [place], [address]. tel:[phone] Family History Family Member Type Diagnosis Age At Onset No Information Payers Payer name Insurance type Covered constitution party ID Authoryoandy morelos(s) [facility] [id number] Social History Type Description Quantity Date Captured [...]
--- OUTSIDE RECORDS SUMMARY | 2025-08-28 15:07 | XMS_ITS | Clinical Summary ---
Author Organization [facility] Address [address] [place] [address] Care Team Providers Care Buy Boat Operator Name Role Phone Fei Esquivel MD Primary Care Provider [phone] Allergies Active Allergy Reactions Criticality Noted Date Comments Morphine Swelling,Hives,Itchi ng,Other (See comments) High 04/19/2021 Medications sucralfate (CARAFATE) 1 gram tablet Take 1 tablet (1 g total) by mouth 3 (three) times a day 08/13/[address] (PROTONIX) 40 mg EC tablet Take 1 tablet (40 mg total) by mouth 2 (two) times a day 08/13/20 22 Active estradioL (ESTRACE) 1 mg tablet TAKE 1 & 1/2 TABLETS BY MOUTH EVERY DAY 09/10/20 22 Active ergocalciferol (VITAMIN D) 50,000 unit capsule 04/15/20 21 Active amoxicillin (AMOXIL) 875 mg tablet Take 1 tablet (875 mg total) by mouth every 12 (twelve) hours 09/29/20 23 Active amoxicillin-cl avulanate (AUGMENTIN) 875-125 mg per tablet Take 1 tablet by mouth 2 (two) times a day 08/28/20 23 Active guaiFENesin-co deine (GUAITUSS AC) liquid 100-10 mg/5 mL TAKE 1-2 TEASPOONFUL BY MOUTH EVERY 6 HOURS NEEDED FOR COUGH 09/29/20 23 Active famotidine (PEPCID) 20 mg tablet Take 1 tablet (20 mg total) by mouth 2 (two) times a day 07/06/20 23 Active pravastatin (PRAVACHOL) 10 mg tablet Take 1 tablet (10 mg total) by mouth daily 08/05/20 23 Active predniSONE (DELTASONE) 20 mg tablet 09/03/20 23 Active aspirin 81 mg enteric coated tablet Take 1 tablet (81 mg total) by mouth as needed Active ciprofloxacin (CILOXAN) 0.3 % ophthalmic solution INSTILL 1 DROP 3 TIMES PER DAY STARTING 2 DAYS PRIOR TO SURGERY, CONTINUE FOR 1 WEEK AFTER SURGERY 12/14/19 24 Active doxycycline 100 mg tablet Take 1 tablet/capsule (100 mg total) by mouth 2 (two) times a day 01/05/20 24 Active traMADoL (ULTRAM) 50 mg tablet TAKE 1 OR 2 TABS BY MOUTH EVERY 6 HOURS NEEDED FOR PAIN 12/16/19 24 Active ketorolac (ACULAR) 0.5 % ophthalmic solution INSTILL 1 DROP 3 TIMES A DAY STARTING 2 DAYS BEFORE SURGERY, CONTINUING FOR 2 WEEKS AFTER SURGERY 12/14/19 24 Active ibuprofen 200 mg tab/cap Take 1 tablet/capsule (200 mg total) by mouth every 6 (six) hours as needed Active meloxicam (MOBIC) 15 mg tablet Active polyethylene glycol (MIRALAX) 17 gram/dose bulk powder Active prednisoLONE acetate (PRED FORTE) 1 % ophthalmic suspensionIndi cations: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 ADMINISTER 1 DROP INTO THE RIGHT EYE 4 (FOUR) TIMES A DAY 5 mL 03/30/20 24 Active amiodarone (PACERONE) 200 mg tablet Take 1 tablet (200 mg total) by mouth 2 (two) times a day 05/25/20 24 Active Eliquis 5 mg tablet Take 1 tablet (5 mg total) by mouth 2 (two) times a day 05/30/20 24 Active benzonatate (TESSALON) 100 mg capsule TAKE 1 CAPSULE BY MOUTH THREE TIMES A DAY NEEDED FOR COUGH 05/23/20 24 Active furosemide (LASIX) 20 mg tablet Take 1 tablet (20 mg total) by mouth daily 06/07/20 24 Active metoprolol XL (TOPROL-XL) 25 mg extended release tablet Take 1 tablet (25 mg total) by mouth daily 03/28/20 24 Active amitriptyline (ELAVIL) 10 mg tablet Take 1 tablet (10 mg total) by mouth nightly 30 tablet 06/13/20 24 Active baclofen (LIORESAL) 10 mg tablet Take 1 tablet (10 mg total) by mouth 3 (three) times a day as needed for muscle spasms 60 tablet 11 06/13/20 24 Active valACYclovir (VALTREX) 1 gram tablet TAKE 1 TABLET BY MOUTH TWICE A DAY 60 tablet 08/07/20 25 Active valACYclovir (VALTREX) 1 gram tablet TAKE 1 TABLET BY MOUTH TWICE A DAY 60 tablet 1 01/30/20 25 025 Discontinued Active Problems Problem Noted Date Diagnosed Date Paresthesia 03/22/2024 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 Overview (10/12/2023): Added automatically from request for surgery [id number] Surgical History Surgery Date Site/Laterality Comments EYE SURGERY CATARACT EXTRACTION Medical History Medical History Date Comments Ankylosing spondylitis Neuritis Neuropathy Herpes zoster Social History Tobacco Use Types Packs/Day Years Used Date Smoking Tobacco: Never Smokeless Tobacco: Never Comments Unknown Sex and Gender Information Value Date Recorded Sex Assigned at Not on file 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 Gender Identity Not on file Sexual Orientation Not on file Obstetrics History Last Filed Vital Signs Vital Sign Reading Time Taken Comments Blood Pressure 122/64 06/13/2024 1:18 PM CDT Pulse 56 06/13/2024 1:18 PM CDT Temperature - - Respiratory Rate - - Oxygen Saturation 99% 10/12/2023 1:02 PM SYNTHETIC PLASTERER Inhaled Oxygen Concentration - - Weight 68 kg (150 lb) 06/13/2024 1:18 PM CDT Height 170.2 cm (5' 7) 06/13/2024 1:18 PM CDT Body Mass Index 23.49 06/13/2024 1:18 PM CDT Plan of Treatment Health Maintenance Due Date Last Done Comments Depression Screening 1946 Fall Risk Assessment 1945 Hepatitis C Screening 1945 Osteoporosis Screening-Bone Density Scan 1945 DTaP/Tdap/Td Vaccine (1 - Tdap) 1957 Hepatitis B Screening 1964 Pneumococcal vaccine 65+ (1 of 1 - PCV) 1996 Well Visit 65+ 2011 Influenza Vaccine (#1) 2025 06/25/2022 Zoster Vaccine Completed 08/24/2022, 06/25/2022 Insurance [facility] MEDICARE ADVANTAGE [facility] Address: [place] [address] [employer] MEDICARE ADVANTAGE [facility] Address: [place] [address] [employer] MEDICARE ADVANTAGE [facility] Address: [address] [address] [place] [address] [facility] MEDICARE ADVANTAGE [facility]IC[facility] Address: [address] [address] [place] [address] [facility] MEDICARE ADVANTAGE [facility] Address: [address] [address] [place] [phone] Care Teams Buy Boat Operator Relationship Specialty Start Date End Date Fei Esquivel MD [address] [place] [id number] PCP - General Family Medicine 09/28/22
--- OUTSIDE RECORDS SUMMARY | 2025-10-03 12:48 | XMS_ITS | Clinical Summary ---
Author Organization [facility] Address [facility] [place] [address] Care Team Providers Care Metal Template Maker Name Role Phone Maria England Primary Care Provider [phone] Allergies Active Allergy Reactions Criticality Noted Date [...] (01/13/2023): Added automatically from request for surgery [id number] Family hx of colon cancer 01/13/2023 Overview (01/13/2023): Added automatically from request for surgery [id number] Screening for colon cancer 01/13/2023 Overview (01/13/2023): Added automatically from request for surgery [id number] Hx of adenomatous colonic polyps 01/13/2023 Overview (01/13/2023): Added automatically from request for surgery [id number] Family History Medical History Relation Comments Colon Cancer Cousin None Father Alzheimers Mother Kidney Disease Mother Colon Cancer Paternal Uncle Breast Cancer Neg Hx Relation Status Comments Cousin Alive Father Mother Paternal Uncle Social History Tobacco Use Types Packs/Day Years Used Date Smoking Tobacco: Former Cigarettes 1 1986 Smokeless Tobacco: Never Tobacco Cessation:Counseling Given: [...] - 1-dose 75+ series) 2021 PHQ-2 (Physician [place]) 11/01/2024 COVID-19 Vaccine ( - 2024-2 6 [...] this topic Medical Devices Implanted Type Area Waste Water Plant Operator Device Identifier Shelf Expiration Date Model / Serial / Lot Ocular Lens Implanted:Qty: 1 on 12/20/2023 by Dharmesh Johns MD at [facility] Left: Eye [id number] 11/10/2025 [id number] / [id number] / Procedures Procedure Name Priority Date/Time Associated Diagnosis Comments BONE DENSITY/DEXA Routine 01/18/2025 1:1 0 PM CDT Other specified menopausal and perimenopausal disorders COLONOSCOPY Routine 01/21/2023 6:58 AM CDT from Last 3 Months or Most Recently Relevant to Health Maintenance Results * BONE DENSITY/DEXA (01/18/2025 1:10 PM CDT) [...] 3:23 PM Narrative 01/18/2025 3:25 PM CDT [facility] [address] [facility] [address] [place] [id number] Examination: Bone Density Axial Exam Date/Time: 01/18/2025 [...] Procedure Note Beck Barahona MD - 01/18/2025 [facility] [address] [place] [address] Examination: Bone Density Axial Exam Date/Time: 01/18/2025 [...] Beck Barahona MD, 01/18/2025 3:23 PM Maria England INWEAVER DEXA Final Resul t from Last 3 Months or Most Recently Relevant to Health Maintenance Insurance [facility] MEDICARE [place] [id number] Care Teams Metal Template Maker Relationship Specialty Start Date End Date Maria England FNP [address] [place] [address] PCP - General Nurse Practitioner Family 08/08/24
--- OUTSIDE RECORDS SUMMARY | 2025-10-03 12:48 | XMS_ITS | Clinical Summary ---
Author Organization [facility] Address [address] [place] [address] Care Team Providers Care Hangar Attendant Name Role Phone Fei Esuqivel MD Primary Care Provider [phone] Allergies Active Allergy Reactions Criticality Noted Date [...] predniSONE (DELTASONE) 20 mg tablet 3 Active aspirin 81 mg enteric coated tablet [...] 4 (FOUR) TIMES A DAY 5 mL 4 Active amiodarone (PACERONE) 200 mg tablet [...] total) by mouth nightly 30 tablet 4 Active baclofen (LIORESAL) 10 mg tablet Take 1 tablet (10 mg total) by mouth 3 (three) times a day as needed for muscle spasms 60 tablet 11 4 Active valACYclovir (VALTREX) 1 gram tablet TAKE 1 TABLET BY MOUTH TWICE A DAY 60 tablet 5 Active Active Problems Problem Noted Date Diagnosed Date Paresthesia 03/22/2024 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 Overview (10/12/2023): Added automatically from request for surgery [id number] Surgical History Surgery Date Site/Laterality Comments EYE SURGERY CATARACT EXTRACTION Medical History Medical History Date Comments Ankylosing spondylitis Neuritis Neuropathy Herpes zoster Social History Tobacco Use Types Packs/Day Years Used Date Smoking Tobacco: Never Smokeless Tobacco: Never Comments Unknown Sex and Gender Information Value Date Recorded Sex Assigned at Not on file Legal Sex Female 10:36 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 Gender Identity Not on file Sexual Orientation Not on file Last Filed Vital Signs Vital Sign Reading Time Taken Comments Blood Pressure 122/64 06/13/2024 1:18 PM CDT Pulse 56 06/13/2024 1:18 PM CDT Temperature - - Respiratory Rate - - Oxygen Saturation 99% 10/12/2023 1:02 PM CALL OR CONTACT CENTRE COACH Inhaled Oxygen Concentration - - Weight 68 [...] 06/25/2022 Zoster Vaccine Completed 08/24/2022, 06/25/2022 Insurance [facility] MEDICARE ADVANTAGE UHC MEDICARE ADVANTAGE UHC MEDICARE ADVANTAGE [facility] MEDICARE ADVANTAGE [facility] MEDICARE ADVANTAGE [place] [id number] Care Teams Hangar Attendant Relationship Specialty Start Date End Date Fei Esquivel MD [address] [place] [id number] PCP - General Family Medicine 09/28/22
== END 2025-08-28 13:06 ==
LOC: ANHLAB 10-03 11:09
PROVIDERS: PCP Nurse Practitioner Family; Visit Provider Physician Assistant
DX: R05.3 Chronic cough (principal)
CPT/HCPCS: 87015; 87070; 87116; 87205; 87206

== ENCOUNTER 2025-08-31 12:47 | Outpatient (CLI) | payer MEDICARE, SELFPAY ==
--- OUTSIDE RECORDS SUMMARY | 2010-10-21 05:10 | XMS_ITS | Continuity of Care Document ---
Author Organization [facility] Address [address] [address] Phone Care Team Providers Care Electorate Officer Name Role Phone Chantal Marie MD Unavailable [...] Encounter OFFICE/OUTPAT IENT VISIT, EST [facility], [address] [place] [address], [id number], [place] tel:[phone] [place] [facility] No Information 0 Jorge Cornejo. [address] [place] [address], [id number], [place]. tel:[phone] OFFICE/OUTPAT IENT VISIT, EST [facility], [address] [place] [address], [id number], [place] tel:[phone] [place] [facility] No Information 0 Klippenstei n Chantal. [address] [place] [address], [address], [place], [place], [id number], [place]. tel:[phone] Referring Provider: Quan Prabhakar, [address] [facility] [address], [place], [address]. tel:[phone] [facility], [address] [place], [place] [address]ite 100, [place], [place], [id number], [place] tel:[phone] [place] [facility] No Information 0-201 0 Klippenstei n Chantal. [address] [place] [address], [address], [place], [place], [id number], [place]. tel:[phone] Referring Provider: Quan Prabhakar, [address] [facility] [address], [place], [address]. tel:[phone] [facility], [address] [place] [address] 100, [place], [place], [id number], [place] tel:[phone] [facility] [place] No Information 0 Nathantei n Chantal. [address] [place] [address], [address], [place], [place], [id number], [place]. tel:[phone] Referring Provider: Quan Prabhakar, [address] [facility] [address], [place], [address]. tel:[phone] [facility], [address] [place] [address] 100, [place], [place], [id number], [place] tel:[phone] [facility] [place] No Information 0 [facility]. [address] [place] [address], [address], [place], [place], [id number]. tel:[phone] Referring Provider: Chantal Syed, [address] [place] [address] [address], [place], [address]. tel:[phone] [facility], [address] [place] [address] 100, [place], [place], [id number], [place] tel:[phone] [facility] [place] No Information 0 Klippenstei n Chantal. [address] [place] [address], [facility] 100, [place], [place], [id number], [place]. tel:[phone] Referring Provider: Quan Prabhakar, [facility]0 [facility] [address], [place], [address]. tel:[phone] [facility], [address] [place] [address] 100, [place], [place], [id number], [place] tel:[phone] [facility] [place] No Information 0 [facility]. [address] [place] [address], [address], [place], [place], [id number]. tel:[phone] Referring Provider: Chantal Syed, [address] [place] [address] 100, [place], [address]. tel:[phone] OFFICE CONSULTATION [facility], [address] [place] [address] 100, [place], [place], [id number], [place] tel:[phone] [facility] No Information 0 Klippenstei n Chantal. [address] [place] [address], [facility] 100, [place], [place], [id number], [place]. tel:[phone] Referring Provider: Quan Prabhakar, [facility]0 [facility] Suite [facility], [place], [address]. tel:[phone] [facility], [address] [place] [address], [place], [id number], [place] tel:[phone] [facility] No Information 0 Louisippenstei n Chantal. [address] [place] [address], [facility] [address], [place], [id number], [place]. tel:[phone] Referring Provider: Quan Prabhakar, [address] [facility] [address], [place], [address]. tel:[phone] Family History Family Member Type Diagnosis Age At Onset No Information Payers Payer name Insurance type Covered libertarian ID Authoryoandy morelos(s) [facility] [id number] Social History Type Description Quantity Date Captured [...]
--- NOTE | ~2025-08-31 | CT_ITS ---
Exam: CT chest without contrast Clinical History: [Interstitial pulmonary disease, unspecified ] Comparison: [ CTA chest 06/05/2024] Technique: Multiple axial CT images of the chest without with IV contrast. Sagittal and coronal reformatted images were obtained. FINDINGS: Lungs and pleura: [ Tracheobronchial tree is patent. No pneumothorax. No pleural effusion. No pulmonary mass.] Mild biapical scarring. There are small subpleural reticular and groundglass opacities scattered throughout both lungs. No honeycombing. Mediastinum and pulmonary genna: [ No mass or adenopathy.] Axillary/intramammary and supraclavicular: [ No mass or adenopathy.] Heart and great vessels: [ Normal heart size.[ [ No pericardial effusion.] [ No aneurysm.] Thoracic aorta is moderately calcified. There are coronary artery calcifications. Chest Wall: [ Unremarkable.] Upper Abdomen: Cholecystomy clips. Moderate-sized hiatal hernia. There is a too small to characterize low-attenuation lesion in the liver. Osseous structures: [ No acute fracture lesion.] [ Multilevel degenerative change in the visualized spine.] Cervical hardware is noted. Additional findings: [ None of significance.] The study is slightly limited due to motion artifact. IMPRESSION: 1. There are small subpleural reticular and groundglass opacities scattered throughout both lungs. The findings are similar to the prior study from 06/05/2024. 2. Moderate-sized hiatal hernia. Reviewed, dictated and finalized at location Q. IMPRESSION: 1. There are small subpleural reticular and groundglass opacities scattered thr oughout both lungs. The findings are similar to the prior study from 06/05/2024. 2. Moderate-sized hiatal hernia.
--- OUTSIDE RECORDS SUMMARY | 2025-08-31 12:49 | XMS_ITS | Clinical Summary ---
Author Organization [facility] Address [address] [place] [address] Care Team Providers Care Regional Forester Name Role Phone Fei Esquivel MD Primary Care Provider [phone] Allergies Active Allergy Reactions Criticality Noted Date [...] (10/12/2023): Added automatically from request for surgery [id number] Surgical History Surgery Date Site/Laterality Comments EYE SURGERY CATARACT EXTRACTION Medical History Medical History Date Comments Ankylosing spondylitis Neuritis Neuropathy Herpes zoster Social History Tobacco Use Types Packs/Day Years Used Date Smoking Tobacco: Never Smokeless Tobacco: Never Comments Unknown Sex and Gender Information Value Date Recorded Sex Assigned at Not on file 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 Gender Identity Not on file Sexual Orientation Not on file Obstetrics History Last Filed Vital Signs Vital Sign Reading Time Taken Comments Blood Pressure 122/64 06/13/2024 1:18 PM CDT Pulse 56 06/13/2024 1:18 PM CDT Temperature - - Respiratory Rate - - Oxygen Saturation 99% 10/12/2023 1:02 PM HAT LINING PASTER Inhaled Oxygen Concentration - - Weight 68 [...] 06/25/2022 Zoster Vaccine Completed 08/24/2022, 06/25/2022 Insurance [facility] MEDICARE ADVANTAGE [employer] MEDICARE ADVANTAGE U[employer] MEDICARE ADVANTAGE [facility] MEDICARE ADVANTAGE [facility] MEDICARE ADVANTAGE [place] [id number] Care Teams Regional Forester Relationship Specialty Start Date End Date Fei Esquivel MD [address] [place] [id number] PCP - General Family Medicine 09/28/22
--- OUTSIDE RECORDS SUMMARY | 2025-08-31 12:49 | XMS_ITS | Clinical Summary ---
Author Organization [facility] Address [facility] [place] [address] Care Team Providers Care Scrap Crusher Name Role Phone Maria England Primary Care Provider Allergies Active Allergy Reactions [...] (01/13/2023): Added automatically from request for surgery [id number] Family hx of colon cancer 01/13/2023 Overview (01/13/2023): Added automatically from request for surgery [id number] Screening for colon cancer 01/13/2023 Overview (01/13/2023): Added automatically from request for surgery [id number] Hx of adenomatous colonic polyps 01/13/2023 Overview (01/13/2023): Added automatically from request for surgery [id number] Encounters Date Type Department Care Team Description 06/12/2025 8:37 PM CDT - 06/12/2025 11:42 PM CDT Emergency [facility] Emergency Room [id number] [place] [address] Thanh Squires MD Medical Screening Discharge Disposition: Home or Self Care (Routine Discharge) from Last 3 Months Family History Medical History Relation Comments Colon [...] Information Value Date Recorded Sex Assigned at Female 01/08/2025 11:53 AM CDT Legal Sex Female 11:37 AM CDT Gender Identity Not on file Sexual Orientation Straight 04/09/2023 12 :47 PM CDT Last Filed Vital Signs Vital Sign Reading Time Taken Comments Blood Pressure 162/55 06/12/2025 11:30 PM CDT Pulse 54 06/12/2025 11:30 PM CDT Temperature 36.6 C (97.8 F) 06/12/2025 8:41 PM CDT Respiratory Rate 18 06/12/2025 11:30 PM CDT Oxygen Saturation 97% 06/12/2025 11:30 PM CDT Inhaled Oxygen Concentration - - Weight 68.5 kg (151 lb) 06/12/2025 8:41 PM CDT Height 170.2 cm (5' 7) 06/12/2025 8:41 PM CDT Body Mass Index 23.65 06/12/2025 8:41 PM CDT Plan of Treatment Health Maintenance Due Date Last Done Comments Hepatitis C 1963 DTaP, Tdap and Td Vaccines ( 1 - Tdap) 1965 Pneumococcal Vaccine: 50+ Years (1 of 1 - PCV) 1996 Annual Medicare Wellness Visit 2011 RSV Immunization or 60+ Years (1 - 1-dose 75+ series) 2021 PHQ-2 (Physician [place]) 11/01/2024 COVID-19 Vaccine ( - 2024-2 6 season) 2025 Influenza Adult (#1) 2025 Zoster Vaccines Completed 08/24/2022, 06/25/2022 Colorectal Cancer Screening Colonoscopy (10 Years) Discontinued 01/21/2023, 01/21/2023 Dexa Scan (General) Completed 01/18/2025 Hepatitis A Vaccines Aged Out No long er eligible based on patient's age to complete this topic Meningococcal B Vaccine Aged Out No l onger eligible based on patient's age to complete this topic Meningococcal Vaccine Aged Out No ana jo eligible based on patient's age to complete this topic RSV Immunizations Under 20 Months Aged Out No longer eligible based on patient's age to complete this topic Medical Devices Implanted Type Area Customer Relations Assistant Device Identifier Shelf Expiration Date Model / Serial / Lot Ocular Lens Implanted:Qty: 1 on 12/20/2023 by Dharmesh Johns MD at [facility] Left: Eye [id number] 11/10/2025 [id number] / [id number] / Procedures Procedure Name Priority Date/Time Associated Diagnosis Comments TROPONIN, QUANT STAT 06/12/2025 11:00 PM CDT XR CHEST PORTABLE STAT 06/12/2025 10: 07 PM CDT TROPONIN, QUANT STAT 06/12/2025 9:00 PM CDT COMPREHENSIVE METABOLIC PANEL STAT 06/12/2025 9:00 PM CDT CBC W/DIFF AUTOMATED STAT 06/12/2025 9:00 PM CDT ECG 12-LEAD STAT 06/12/2025 8:46 PM CDT BONE DENSITY/DEXA Routine 01/18/2025 1:1 0 PM CDT Other specified menopausal and perimenopausal disorders COLONOSCOPY Routine 01/21/2023 6:58 AM CDT from Last 3 Months or Most Recently Relevant to Health Maintenance Results * TROPONIN, QUANT (06/12/2025 11:00 PM CDT) Only the most recent of2 resultswithin the time period is included. TROPONIN I HIGH SENSITIVITY 7 0 - 50 ng/L 06/12/2025 11:28 PM CDT [facility] Comment: HIGH DOSES OF BIOTIN, TROPONIN-SPECIFIC AUTOANTIBODIES, AND ANTIBODY THERAPY CONTAINING HAMA MAY INTERFERE WITH THIS TEST RESULT. CORRELATION TO CLINICAL HISTORY AND PRESENTATION RECOMMENDED. 06/12/2025 11:0 0 PM CDT Thanh Squires MD LABORATORY Final Result [facility] [address] [id number], [place] [phone] * XR CHEST PORTABLE (06/12/2025 10:07 PM CDT) Anatomical Region Laterality Modality Chest Radiographic Soumya ging 06/12/2025 10:1 9 PM CDT Impressions 06/12/2025 10:22 PM CDT IMPRESSION: 1. No acute cardiopulmonary process. 2. Mild peripheral interstitial prominence possibly representing fibrosis. Referred By: Interpreted By: Elfego Clayton MD, 06/12/2025 10:19 PM Narrative 06/12/2025 10:22 PM CDT [facility] [address] [facility] [place] [address] INDICATION: chest pain COMPARISON: X-ray chest 08/28/2023 TECHNIQUE: Single AP image of the chest FINDINGS: No focal airspace consolidation. There is mild peripheral interstitial prominence. No pleural effusion or pneumothorax. Cardiomediastinal silhouette and pulmonary vasculature are within normal limits. No acute osseous abnormality. Lower cervical ACDF. Right humeral head surgical anchor. Procedure Note Elfego Clayton, DO - 06/12/2025 [facility] [address] [place] [address] INDICATION: chest pain COMPARISON: X-ray chest 08/28/2023 TECHNIQUE: Single AP image of the chest FINDINGS: No focal airspace consolidation. There is mild peripheral interstitialprominence. No pleural effusion or pneumothorax. Cardiomediastinalsilhouette and pulmonary vasculature are within normal limits. No acuteosseous abnormality. Lower cervical ACDF. Right humeral head surgicalanchor. IMPRESSION: 1. No acute cardiopulmonary process. 2. Mild peripheral interstitial prominence possibly representingfibrosis. Referred By: Interpreted By: Elfego Clayton MD, 06/12/2025 10:19 PM Thanh Squires MD GENERAL IMAGING Final Result * (ABNORMAL) COMPREHENSIVE METABOLIC PANEL (06/12/2025 9:00 PM CDT) GLUCOSE 106(H) 70 - 99 MG/DL 06/12/2025 9:23 PM [facility] BUN 20(H) 7 - 18 MG/DL 06/12/2025 9:23 PM [facility] CREATININE S/P/B 1.30(H) 0.55 - 1.02 MG/DL 06/12/2025 9:23 PM [facility] SODIUM S/P/B 137 136 - 145 MMOL/L 06/12/2025 9:23 PM [facility] POTASSIUM S/P/B 4.2 3.5 - 5.1 MMOL/L 06/12/2025 9:23 PM [facility] CHLORIDE S/P/B 99(L) 100 - 108 MMOL/L 06/12/2025 9:23 PM [facility] CO2 29.5 21 - 32 MMOL/L 06/12/2025 9:23 PM [facility] CALCIUM S/P/B 8.4(L) 8.5 - 10.1 MG/DL 06/12/2025 9:23 PM [facility] BILIRUBIN TOTAL S/P/B 0.2 0.2 - 1.2 MG/DL 06/12/2025 9:23 PM [facility] TOTAL PROTEIN S/P/B 7.7 6.4 - 8.2 G/DL 06/12/2025 9:23 PM [facility] ALBUMIN S/P/B 3.7 3.4 - 5.0 G/DL 06/12/2025 9:23 PM [facility] AST 27 15 - 37 U/L 06/12/2025 9:23 PM [facility] ALT 29 14 - 55 U/L 06/12/2025 9:23 PM CDT [facility] ALKALINE PHOSPHATASE S/P/B 108 50 - 136 U/L 06/12/2025 9:23 PM CDT [facility] ANION GAP 8.5 5 - 15 MMOL/L 06/12/2025 9:23 PM CDT [facility] BUN CREATININE RATIO 15.4 6 - 26 06/12/2025 9:23 PM T [facility] A/G RATIO 0.9(L) 1.0 - 2.0 RATIO 06/12/2025 9:23 PM T [facility] GFR ESTIMATE 42(L) >90 ML/MIN/1.7 3 M2 06/12/2025 9:23 PM T [facility] Comment: NOTE: eGFR is not calculated for patients <18 years of age. This is an estimated GFR calculation using the new CKD EPI creatinine equation without race and so does not require a correction factor for race. This estimated GFR should not be used for calculating drug doses. 06/12/2025 9:00 PM CDT Thanh Squires MD LABORATORY Final Result [facility] [address] [id number], [place] [phone] * (ABNORMAL) CBC W/DIFF AUTOMATED (06/12/2025 9:00 PM CDT) WBC 8.88 4.4 - 11.0 x10'3/uL 06/12/2025 9:09 PM CDT [facility] RBC 3.69(L) 4.50 - 5.10 x10'6/uL 06/12/2025 9:09 PM T [facility] HGB 11.9(L) 12.3 - 15.3 G/DL 06/12/2025 9:09 PM [facility] HCT 35.7(L) 35.9 - 44.6 % 06/12/2025 9:09 PM [facility] MCV 96.7(H) 80.0 - 96.0 FL 06/12/2025 9:09 PM [facility] MCH 32.2(H) 25.3 - 30.9 PG 06/12/2025 9:09 PM [facility] MCHC 33.3 31.0 - 34.1 G/DL 06/12/2025 9:09 PM [facility] RDW 13.9 12.4 - 15.1 % 06/12/2025 9:09 PM [facility] PLT 280 151 - 353 x10'3/uL 06/12/2025 9:09 PM [facility] MPV 10.3 9.6 - 12.0 FL 06/12/2025 9:09 PM [facility] RBC MORPHOLOGY NORMAL 06/12/2025 9:09 PM [facility] PLT MORPH. NORMAL 06/12/2025 9:09 PM [facility] WBC MORPHOLOGY NORMAL 06/12/2025 9:09 PM [facility] LYMPHOCYTES % 41.2 15.8 - 45.0 % 06/12/2025 9:09 PM [facility] NEUTROPHILS % 45.5 42.1 - 71.9 % 06/12/2025 9:09 PM T [facility] MONOCYTES % 9.2 5.7 - 12.5 % 06/12/2025 9:09 PM [facility] EOSINOPHILS 2.7 0.0 - 5.6 % 06/12/2025 9:09 PM [facility] BASOPHILS 0.9 0.0 - 1.3 % 06/12/2025 9:09 PM CDT [facility] ABS. NEUTROPHILS 4.04 1.40 - 6.00 x10'3/uL 06/12/2025 9:09 PM CDT [facility] IMMATURE GRANS % 0.5 0.0 - 0.5 % 06/12/2025 9:09 PM CDT [facility] ABS. 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1945 Requested By: THANH SQUIRES Order Number: [id number] Reading MD: Asad Cabezas Measurements Intervals [place] Rate: 58 P: 72 UT: 250 QRS: 13 QRSD: 82 T: 37 QT: 441 QTc: 434 Interpretive Statements SINUS BRADYCARDIA WITH FIRST DEGREE AV BLOCK Compared to ECG 08/28/2023 14:14:41 First degree AV block now present Sinus rhythm no longer present Procedure Note Asad Cabezas MD - 06/15/2025 [facility] Test Date: 2025-06-12 Pat Name: IVET NINO Department: 85 Room: EXAM 202 Gender: Female [employer] 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1945 Requested By: THANH SQUIRES Order Number: [id number] Reading MD: Asad Cabezas Measurements Intervals [place] Rate: 58 P: 72 UT: 250 QRS: 13 QRSD: 82 T: 37 QT: 441 QTc: 434 Interpretive Statements SINUS BRADYCARDIA WITH FIRST DEGREE AV BLOCK Compared to ECG 08/28/2023 14:14:41 First degree AV block now present Sinus rhythm no longer present us Thanh Squires MD ECG ORDERABLES Final Result [facility] RAD * BONE DENSITY/DEXA (01/18/2025 1:10 PM CDT) Anatomical Region Laterality Modality Bone Bone Density 01/18/2025 3:23 PM CDT Impressions 01/18/2025 3:25 PM CDT IMPRESSION: WHO Classification: Osteopenia of the right hip. Normal bone mineral density of the left hip and lumbar spine. FRAX 10-year fracture risk: Major Osteoporotic Fracture: 9.8% Hip Fracture: 1.5% Referred By: MARIA ENGLAND Interpreted By: Beck Barahona MD, 01/18/2025 3:23 PM Narrative 01/18/2025 3:25 PM CDT [facility] [address] [place] [address] Examination: Bone Density Axial Exam Date/Time: 01/18/2025 12:59 PM Reason For Exam: Post-menopausal screening. Comparison: None Findings: DEXA bone densitometry The bone mineral density (BMD) was determined by dual-energy x-ray absorptiometry, the results are as follows: AP Lumbar Spine L1 through L4 BMD Patient (GM/SQCM): 0.984 T-Score (Standard deviations from young adult peak bone density): -0.6 Left femoral neck: BMD Patient (GM/SQCM): 0.811 T-Score (Standard deviations from young adult peak bone density): -0.3 Total left femur: BMD Patient (GM/SQCM): 0.846 T-Score (Standard deviations from young adult peak bone density): -0.8 Right femoral neck: BMD Patient (GM/SQCM): 0.789 T-Score (Standard deviations from young adult peak bone density): -0.5 Total right femur: BMD Patient (GM/SQCM): 0.805 T-Score (Standard deviations from young adult peak bone density): -1.1 Recommendations: All patients should ensure an adequate intake of dietary calcium and vitamin D. The NOF recommend adults under the age of 50 need 1000 mg of calcium and 400-800 IU of vitamin D daily. Effective therapy for the prevention and treatment of osteoporosis include biphosphonates. Follow-up: People with diagnosed cases of osteoporosis or at high risk for fracture should have regular bone mineral density test. For patients eligible for Medicare, routine testing is allowed once every 2 years. Testing frequency can be increased to one year for patients who have rapidly progressing disease, those who are receiving or discontinuing medical therapy to restore bone mass, or have additional risk factors. Procedure Note Beck Barahona MD - 01/18/2025 [facility] [address] [place] [address] Examination: Bone Density Axial Exam Date/Time: 01/18/2025 12:59 PM Reason For Exam: Post-menopausal screening. Comparison: None Findings: DEXA bone densitometry The bone mineral density (BMD) was determined bydual-energy x-ray absorptiometry, the results are as follows: AP Lumbar Spine L1 through L4 BMD Patient (GM/SQCM): 0.984 T-Score (Standard deviations from young adult peak bonedensity): -0.6 Left femoral neck: BMD Patient (GM/SQCM): 0.811 T-Score (Standard deviations from young adult peak bonedensity): -0.3 Total left femur: BMD Patient (GM/SQCM): 0.846 T-Score (Standard deviations from young adult peak bonedensity): -0.8 Right femoral neck: BMD Patient (GM/SQCM): 0.789 T-Score (Standard deviations from young adult peak bonedensity): -0.5 Total right femur: BMD Patient (GM/SQCM): 0.805 T-Score (Standard deviations from young adult peak bonedensity): -1.1 Recommendations: All patients should ensure an adequate intake of dietary calcium andvitamin D. The NOF recommend adults under the age of 50 need 1000 mg ofcalcium and 400-800 IU of vitamin D daily. Effective therapy for theprevention and treatment of osteoporosis include biphosphonates. Follow-up: People with diagnosed cases of osteoporosis or at high risk for fractureshould have regular bone mineral density test. For patients eligible forMedicare, routine testing is allowed once every 2 years. Testing frequencycan be increased to one year for patients who have rapidly progressingdisease, those who are receiving or discontinuing medical therapy torestore bone mass, or have additional risk factors. IMPRESSION: WHO Classification: Osteopenia of the right hip. Normal bone mineraldensity of the left hip and lumbar spine. FRAX 10-year fracture risk: Major Osteoporotic Fracture: 9.8% Hip Fracture: 1.5% Referred By: MARIA ENGLAND Interpreted By: Beck Barahona MD, 01/18/2025 3:23 PM Maria RIVAS DEXA Final Resul t from Last 3 Months or Most Recently Relevant to Health Maintenance Insurance Care Teams Scrap Crusher Relationship Specialty Start Date End Date Maria England FNP [address] [place] [id number] PCP - General Nurse Practitioner Family 08/08/24
== END 2025-08-31 12:48 | disposition home or self-care (01) ==
PROVIDERS: PCP Nurse Practitioner Family; Visit Provider Internal Medicine Critical Care Medicine
DX: J84.9 Interstitial pulmonary disease, unspecified (principal); R05.3 Chronic cough; K44.9 Diaphragmatic hernia without obstruction or gangrene
CPT/HCPCS: 71250; 87070; 87205; 87206

== ENCOUNTER 2025-08-31 13:38 | Emergency (ER) | payer MEDICARE, SELFPAY ==
--- OUTSIDE RECORDS SUMMARY | 2010-10-21 05:10 | XMS_ITS | Continuity of Care Document ---
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 [address] [place] [address], [id number], [place]. tel:[phone] OFFICE/OUTPAT IENT VISIT, EST [facility], [address] [place] [address], [id number], [place] tel:[phone] [place] [facility] No Information 0 Klippenstei n Chantal. [address] [place] [address], [address], [place], [place], [id number], [place]. tel:[phone] Referring Provider: Quan Prabhakar, [address] [facility] [address], [place], [address]. tel:[phone] [facility], [address] [place], [place] [address]ite [address], [place], [place], [id number], [place] tel:[phone] [place] [facility] No Information 0-201 0 Klippenstei n Chantal. [address] [place] [address], [address], [place], [place], [id number], [place]. tel:[phone] Referring Provider: Quan Prabhakar, [address] [facility] [address], [place], [address]. tel:[phone] [facility], [address] [place] [address] 100, [place], [place], [id number], [place] tel:[phone] [facility] [place] No Information 0 Nathantei n Chantal. [address] [place] [address], [address], [place], [place], [id number], [place]. tel:[phone] Referring Provider: Quan Prabhakar, [address] [facility] [address], [place], [address]. tel:[phone] [facility], [address] [place] [address] 100, [place], [place], [id number], [place] tel:[phone] [facility] [place] No Information 0 [facility]. [address] [place] [address], [address], [place], [place], [id number]. tel:[phone] Referring Provider: Chantal Syed, [address] [place] [address] [address], [place], [address]. tel:[phone] [facility], [address] [place] [address] 100, [place], [place], [id number], [place] tel:[phone] [facility] [place] No Information 0 Klippenstei n Chantal. [address] [place] [address], [facility] 100, [place], [place], [id number], [place]. tel:[phone] Referring Provider: Quan Prabhakar, [facility]0 [facility] [address], [place], [address]. tel:[phone] [facility], [address] [place] [address] 100, [place], [place], [id number], [place] tel:[phone] [facility] [place] No Information 0 [facility]. [address] [place] [address], [address], [place], [place], [id number]. tel:[phone] Referring Provider: Chantal Syed, [address] [place] [address] 100, [place], [address]. tel:[phone] OFFICE CONSULTATION [facility], [address] [place] [address] 100, [place], [place], [id number], [place] tel:[phone] [facility] No Information 0 Klippenstei n Chantal. [address] [place] [address], [facility] 100, [place], [id number], [place]. tel:[phone] Referring Provider: Quan Prabhakar, [facility]0 [facility] Suite [facility], [place], [address]. tel:[phone] [facility], [address] [place] [address], [place], [id number], [place] tel:[phone] [facility] No Information 0 Louisippenstei n Chantal. [address] [place] [address], [facility] [address], [place], [id number], [place]. tel:[phone] Referring Provider: Quan Prabhakar, [address] [facility] [address], [place], [address]. tel:[phone] Family History Family Member Type Diagnosis Age At Onset No Information Payers Payer name Insurance type Covered libertarian ID Authoryoandy morelos(s) [facility] [id number] Social History Type Description Quantity Date Captured Comments Sex Female Smoking Status No Information Chief Complaint And Reason For Visit No Information Reason For Referral Reason For Referral No Information History Of Present Illness Encounter Date Complaint History Of Prese nt Illness No Information Functional Status Date Functional Assessmen t No Information Instructions Date Instruction Additional Infor mation No Information Assessments Type Assessment Date No Information Patient Care Teams Name Effective Dates (start - stop) Status Members No Information
--- OUTSIDE RECORDS SUMMARY | 2025-08-31 13:40 | XMS_ITS | Clinical Summary ---
Author Organization [facility] Address [facility] [place] [address] Care Team Providers Care Carry All Driver Name Role Phone Maria England Primary Care [...] (01/13/2023): Added automatically from request for surgery [id number] Family hx of colon cancer 01/13/2023 Overview (01/13/2023): Added automatically from request for surgery [id number] Screening for colon cancer 01/13/2023 Overview (01/13/2023): Added automatically from request for surgery [id number] Hx of adenomatous colonic polyps 01/13/2023 Overview (01/13/2023): Added automatically from request for surgery [id number] Encounters Date Type Department Care Team Description 06/12/2025 8:37 PM CDT - 06/12/2025 11:[address] [facility] Emergency Room [id number] [place] [address] Thanh Squires MD Medical Screening Discharge Disposition: [...] - 1-dose 75+ series) 2021 PHQ-2 (Physician [place]) 11/01/2024 COVID-19 Vaccine ( - 2024-2 6 [...] this topic Medical Devices Implanted Type Area Rfp Writer Device Identifier Shelf Expiration Date Model / Serial / Lot Ocular Lens Implanted:Qty: 1 on 12/20/2023 by Dharmesh Johns MD at [facility] Left: Eye [id number] 11/10/2025 [id number] / [id number] / Procedures Procedure Name Priority Date/Time Associated [...] - 50 ng/L 06/12/2025 11:28 PM CDT [facility] Comment: HIGH DOSES OF BIOTIN, TROPONIN-SPECIFIC AUTOANTIBODIES, AND ANTIBODY THERAPY CONTAINING HAMA MAY INTERFERE WITH THIS TEST RESULT. CORRELATION TO CLINICAL HISTORY AND PRESENTATION RECOMMENDED. 06/12/2025 11:0 0 PM CDT Thanh Squires MD LABORATORY Final Result [facility] [address] [id number], [place] [phone] * XR CHEST PORTABLE (06/12/2025 10:07 PM CDT) Anatomical Region Laterality Modality Chest Radiographic Soumya ging 06/12/2025 10:1 9 PM CDT Impressions 06/12/2025 10:22 PM CDT IMPRESSION: 1. No acute cardiopulmonary process. 2. Mild peripheral interstitial prominence possibly representing fibrosis. Referred By: Interpreted By: Elfego Clayton MD, 06/12/2025 10:19 PM Narrative 06/12/2025 10:22 PM CDT [facility] [address] [facility] [place] [address] INDICATION: chest pain COMPARISON: X-ray chest 08/28/2023 TECHNIQUE: Single AP image of the chest FINDINGS: No focal airspace consolidation. There is mild peripheral interstitial prominence. No pleural effusion or pneumothorax. Cardiomediastinal silhouette and pulmonary vasculature are within normal limits. No acute osseous abnormality. Lower cervical ACDF. Right humeral head surgical anchor. Procedure Note Elfego Clayton, DO - 06/12/2025 [facility] [address] [place] [address] INDICATION: chest pain COMPARISON: X-ray chest 08/28/2023 [...] 70 - 99 MG/DL 06/12/2025 9:23 PM [facility] BUN 20(H) 7 - 18 MG/DL 06/12/2025 9:23 PM [facility] CREATININE S/P/B 1.30(H) 0.55 - 1.02 MG/DL 06/12/2025 9:23 PM [facility] SODIUM S/P/B 137 136 - 145 MMOL/L 06/12/2025 9:23 PM [facility] POTASSIUM S/P/B 4.2 3.5 - 5.1 MMOL/L 06/12/2025 9:23 PM [facility] CHLORIDE S/P/B 99(L) 100 - 108 MMOL/L 06/12/2025 9:23 PM [facility] CO2 29.5 21 - 32 MMOL/L 06/12/2025 9:23 PM [facility] CALCIUM S/P/B 8.4(L) 8.5 - 10.1 MG/DL 06/12/2025 9:23 PM [facility] BILIRUBIN TOTAL S/P/B 0.2 0.2 - 1.2 MG/DL 06/12/2025 9:23 PM [facility] TOTAL PROTEIN S/P/B 7.7 6.4 - 8.2 G/DL 06/12/2025 9:23 PM [facility] ALBUMIN S/P/B 3.7 3.4 - 5.0 G/DL 06/12/2025 9:23 PM [facility] AST 27 15 - 37 U/L 06/12/2025 9:23 PM [facility] ALT 29 14 - 55 U/L 06/12/2025 9:23 PM CDT [facility] ALKALINE PHOSPHATASE S/P/B 108 50 - 136 U/L 06/12/2025 9:23 PM CDT [facility] ANION GAP 8.5 5 - 15 MMOL/L 06/12/2025 9:23 PM CDT [facility] BUN CREATININE RATIO 15.4 6 - 26 06/12/2025 9:23 PM T [facility] A/G RATIO 0.9(L) 1.0 - 2.0 RATIO 06/12/2025 9:23 PM T [facility] GFR ESTIMATE 42(L) >90 ML/MIN/1.7 3 M2 06/12/2025 9:23 PM T [facility] Comment: NOTE: eGFR is not calculated for patients <18 years of age. This is an estimated GFR calculation using the new CKD EPI creatinine equation without race and so does not require a correction factor for race. This estimated GFR should not be used for calculating drug doses. 06/12/2025 9:00 PM CDT Thanh Squires MD LABORATORY Final Result [facility] [address] [id number], [place] [phone] * (ABNORMAL) CBC W/DIFF AUTOMATED (06/12/2025 9:00 PM CDT) WBC 8.88 4.4 - 11.0 x10'3/uL 06/12/2025 9:09 PM CDT [facility] RBC 3.69(L) 4.50 - 5.10 x10'6/uL 06/12/2025 9:09 PM T [facility] HGB 11.9(L) 12.3 - 15.3 G/DL 06/12/2025 9:09 PM [facility] HCT 35.7(L) 35.9 - 44.6 % 06/12/2025 9:09 PM [facility] MCV 96.7(H) 80.0 - 96.0 FL 06/12/2025 9:09 PM [facility] MCH 32.2(H) 25.3 - 30.9 PG 06/12/2025 9:09 PM [facility] MCHC 33.3 31.0 - 34.1 G/DL 06/12/2025 9:09 PM [facility] RDW 13.9 12.4 - 15.1 % 06/12/2025 9:09 PM [facility] PLT 280 151 - 353 x10'3/uL 06/12/2025 9:09 PM [facility] MPV 10.3 9.6 - 12.0 FL 06/12/2025 9:09 PM [facility] RBC MORPHOLOGY NORMAL 06/12/2025 9:09 PM [facility] PLT MORPH. NORMAL 06/12/2025 9:09 PM [facility] WBC MORPHOLOGY NORMAL 06/12/2025 9:09 PM [facility] LYMPHOCYTES % 41.2 15.8 - 45.0 % 06/12/2025 9:09 PM [facility] NEUTROPHILS % 45.5 42.1 - 71.9 % 06/12/2025 9:09 PM T [facility] MONOCYTES % 9.2 5.7 - 12.5 % 06/12/2025 9:09 PM [facility] EOSINOPHILS 2.7 0.0 - 5.6 % 06/12/2025 9:09 PM [facility] BASOPHILS 0.9 0.0 - 1.3 % 06/12/2025 9:09 PM CDT [facility] ABS. NEUTROPHILS 4.04 1.40 - 6.00 x10'3/uL 06/12/2025 9:09 PM CDT [facility] IMMATURE GRANS % 0.5 0.0 - 0.5 % 06/12/2025 9:09 PM CDT [facility] ABS. LYMPHOCYTES 3.66 0.80 - 4.70 x10'3/uL 06/12/2025 9:09 PM CDT [facility] 06/12/2025 9:00 PM CDT Thanh Squires MD LABORATORY Final Result Performing Organization Address City/State/[facility] Co de Phone Number [facility] [address] [place] [address], * ECG 12 lead (06/12/2025 8:46 PM CDT) 06/12/2025 8:46 PM CDT Narrative [facility] RAD - 06/15/2025 9:51 AM CDT [facility] Test Date: 2025-06-12 Pat Name: IVET NINO Department: 85 Room: EXAM 202 Gender: Female Director Business Travel: : 1945 Requested By: THANH SQUIRES Order Number: [id number] Reading MD: Asad Cabezas Measurements Intervals [place] Rate: 58 P: 72 MO: 250 QRS: 13 QRSD: 82 T: 37 QT: 441 QTc: 434 Interpretive Statements SINUS BRADYCARDIA WITH FIRST DEGREE AV BLOCK Compared to ECG 08/28/2023 14:14:41 First degree AV block now present Sinus rhythm no longer present Procedure Note Asad Cabezas MD - 06/15/2025 [facility] Test Date: 2025-06-12 Pat Name: IVET NINO Department: 85 Room: EXAM 202 Gender: Female Director Business Travel: : 1945 Requested By: THANH SQUIRES Order Number: [id number] Reading MD: Asad Cabezas Measurements Intervals [place] Rate: 58 P: 72 MO: 250 QRS: 13 QRSD: 82 T: 37 QT: 441 QTc: 434 Interpretive Statements SINUS BRADYCARDIA WITH FIRST DEGREE AV BLOCK Compared to ECG 08/28/2023 14:14:41 First degree AV block now present Sinus rhythm no longer present us Thanh Squires MD ECG ORDERABLES Final Result [facility] * BONE DENSITY/DEXA (01/18/2025 1:10 PM [...] 3:23 PM Narrative 01/18/2025 3:25 PM CDT [facility] [address] [place] [address] Examination: Bone Density Axial Exam Date/Time: 01/18/2025 [...] Procedure Note Beck Barahona MD - 01/18/2025 [facility] [address] [place] [address] Examination: Bone Density Axial Exam Date/Time: 01/18/2025 [...] Relevant to Health Maintenance Insurance Care Teams Carry All Driver Relationship Specialty Start Date End Date Maria England FNP [address] [place] [address] PCP - General Nurse Practitioner Family 08/08/24
--- OUTSIDE RECORDS SUMMARY | 2025-08-31 13:40 | XMS_ITS | Clinical Summary ---
Author Organization [facility] Address [address] [place] [address] Care Team Providers Care Special Education Professional Name Role Phone Fei Esquivel MD Primary Care Provider [phone] Allergies Active Allergy Reactions Criticality Noted Date [...] (10/12/2023): Added automatically from request for surgery [id number] Surgical History Surgery Date Site/Laterality Comments EYE SURGERY CATARACT EXTRACTION Medical History Medical History Date Comments Ankylosing spondylitis Neuritis Neuropathy Herpes zoster Social History Tobacco Use Types Packs/Day Years Used Date Smoking Tobacco: Never Smokeless Tobacco: Never Comments Unknown Sex and Gender Information Value Date Recorded Sex Assigned at Not on file Legal 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 Gender Identity Not on file Sexual Orientation Not on file Obstetrics History Last Filed Vital Signs Vital Sign Reading Time Taken Comments Blood Pressure 122/64 06/13/2024 1:18 PM CDT Pulse 56 06/13/2024 1:18 PM CDT Temperature - - Respiratory Rate - - Oxygen Saturation 99% 10/12/2023 1:02 PM STRATEGIC ACCOUNT MANAGER Inhaled Oxygen Concentration - - Weight [...] 06/25/2022 Zoster Vaccine Completed 08/24/2022, 06/25/2022 Insurance [facility] MEDICARE [facility] Address: [place] [address] [employer] MEDICARE AD[facility]ANTAGE [facility] Address: [place] [address] [employer] MEDICARE AD[facility]ANTAGE [facility] Address: [address] [address] [place] [address] [facility] MEDICARE AD[facility]AGE [facility] Address: [address] [address] [place] [address] [facility] MEDICARE AD[facility]AGE [facility] Address: [address] [address] [place] [phone] Care Teams Special Education Professional Relationship Specialty Start Date End Date Fei Esquivel MD [address] [place] [id number] PCP - General Family Medicine 09/28/22
[2025-08-31 14:26] VITALS: BP 120/66; PULSE 60; RESP 16; TEMP 36.4; O2SAT 97
--- NOTE | 2025-08-31 15:11 | PC.NURSE ---
Pt reported to the intake desk and said that she was going to be leaving since she did not want to wait any longer. Pt was advised of the risk about not being seen in the ED. Pt was informed of the s/sx that she should report back to the ED for. Pt ambulated out of the hospital with a steady gait.
== END 2025-08-31 15:19 | disposition left against medical advice (07) ==
PROVIDERS: PCP Nurse Practitioner Family
DX: R03.0 Elevated blood-pressure reading, without diagnosis of hypertension (principal)
CPT/HCPCS: 99199

== ENCOUNTER 2025-09-24 09:15 | Outpatient (RCR) | payer MEDICARE, SELFPAY ==
--- NOTE | 2025-07-18 08:02 | PTOPEVAL1 ---
Assessment and note entered by Milana Fofana, PT Evaluation Information Assessment Status Evaluation Diagnosis Cervicalgia, Dorsalgia ICD-10 Condition Codes (PT) Cervicalgia M54.2,Pain in low back M54.50 Subjective Information Pt reports she fell about 2.5 weeks ago when she was trying to clean her tub. Fell backwards and hit her head on the wall. Feels like she twisted her back, had difficulty getting up because her knees are bad. Reports hurts in the shoulders, up into the neck and and the low back is sore. Back is achey Twisting and activity, bending to put dishes or ending to get under sink hurts her back. Has some help 3 days a week for 3 hours each day for bed making, laundry, vacuuming, washing floors. Neck area stiff, all the way up to the occipital area, states sore in all the muscles Sleeping, will have a spot that grabs when she is turning. Generally an ache. Has been using biofreeze but hasn't today Reported Pain Level Pain Score 2,4: Self Report Assessment PT Clinical Summary Pt presents with c/o neck and back pain after a fall recently. 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 Pt demonstrates decreased ROM cervical spine consistent with her fusion though right lateral flexion is less than left. Demonstrates decreased lumbar ROM with flexion especially due to discomfort and decreased overall thoracic ROM. Multiple areas of increased tone in the upper trapezius and cervical paraspinals present, abnormal sitting postures and alignment, and poor core strength. It was also found today she has one leg that is longer than the other and has been provided education and a hand out for this. 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 Plan of Care Interventions Electrical Stimulation,Hot Pack/Cold Pack,Manual Therapy,Neuro Re-education,Patient/Caregiver Education,Therapeutic Activities,Therapeutic Exercise,Self-Care/Home Management,Other Other Interventions Taping, bracing PT Services Indicated Yes Treatment Frequency and 2x weekly x 20 visits Duration These treatments will address the objective and functional deficits as defined above. The patient will be advanced safely and appropriately in order for the patient to progress towards his/her prior level of function. Additional exercises will be introduced and as well as a comprehensive home exercise program upon discharge, if needed, ?to ensure carryover of functional gains achieved in the clinic. This treatment plan has been reviewed and agreement upon by the patient.
--- NOTE | 2025-07-18 08:03 | OPREHPOC ---
Outpatient Therapy Plan of Care This is a Multidisciplinary Plan of Care that may contain components documented by all disciplines (PT, OT, and ST.) PT Problem 1 PT Problem #1 Knowledge Deficit PT Goal 1 Goal / Goal Update Pt will be independent in HEP Pt will verbalize understanding of diagnosis and prognosis Target Visit 10 PT Problem 2 PT Problem #2 Pain PT Goal 1 Goal / Goal Update Pt will report lowest pain rating at 0/10 to show improvement in overall discomfort Target Visit 10 PT Goal 2 Goal / Goal Update Pt will report greatest pain level at 3/10 or less to improve ADLs and activities Target Visit 20 PT Problem 3 PT Problem #3 Impaired Range of Motion PT Goal 1 Goal / Goal Update Pt will demonstrate full lumbar ROM without pain Target Visit 20 PT Problem 4 PT Problem #4 Impaired Strength PT Goal 1 Goal / Goal Update Pt will demo core strength of 3+/5 of the TRAM to improve lumbopelvic stability Target Visit 10 PT Goal 2 Goal / Goal Update Pt will demo 4/5 or greater strength in BLE to improve knee stability and kinematics with activities Target Visit 20
--- NOTE | 2025-08-21 12:00 | PTOPPROG ---
Assessment and note entered by Milana Fofana, PT Evaluation Information Assessment Status Progress Diagnosis Cervicalgia, Dorsalgia ICD-10 Condition Codes (PT) Cervicalgia M54.2,Pain in low back M54.50 Subjective Information Pt reports with sleeping the grabbing in the neck is less frequent, left side is more often with turning in bed. Back is positional. As long as I behave is doing good. Getting under sink, mopping is still hard for the back when she does this between help days. Reports when back is bad will lay down about 15 minutes and will be better. Neck improvement: 35% Back improvement: 40% Assessment PT Clinical Summary Pt has attended therapy consistently for neck and back pain after a fall. She has a history of cervical fusion C4-7 limiting her ROM and likely cause of some of her chronic postural issues. She does report feeling less grabbing in her neck and reduced pain overall in neck and back. Also demonstrates improved ROM in neck and back today and improvement in overall strength. Cont to require cueing on performing activities appropriately to prevent back and neck pain flare ups. Pt will benefit from continued therapy to continue improvement and reinforce activity modifications to reduce flare ups. Plan of Care Interventions Electrical Stimulation,Hot Pack/Cold Pack,Manual Therapy,Neuro Re-education,Patient/Caregiver Education,Therapeutic Activities,Therapeutic Exercise,Self-Care/Home Management,Other Other Interventions Taping, bracing PT Services Indicated Yes Treatment Frequency and Cont POC 1-2x weekly x 10 visits Duration These treatments will address the objective and functional deficits as defined above. The patient will be advanced safely and appropriately in order for the patient to progress towards his/her prior level of function. Additional exercises will be introduced and as well as a comprehensive home exercise program upon discharge, if needed, ?to ensure carryover of functional gains achieved in the clinic. This treatment plan has been reviewed and agreement upon by the patient.
--- NOTE | 2025-08-30 11:10 | PCPTNOTE ---
Pt called to cx scheduled physical therapy appointment this date due to having high BP.
--- NOTE | 2025-09-10 15:41 | PTOPPROG ---
Assessment and note entered by Milana Fofana, PT Evaluation Information Assessment Status Progress Diagnosis Cervicalgia, Dorsalgia ICD-10 Condition Codes (PT) Cervicalgia M54.2,Pain in low back M54.50 Subjective Information Reports had to reach into her oven to clean it and caused some of the increased neck pain today. Pt state is iffy with sleeping, states will still get a catch in the neck, goes up to a 6/10 trying to turn over in bed. Improvement Neck 30% Back 20% improvement Still feels her back is weak. Is more conscious of her back Assessment PT Clinical Summary Pt has attended therapy consistently for 14 visits . She reports feeling minimally improved overall though she does report lower pain scores overall. She also shows improved ROM in cervical spine, and improved ROM in lumbar spine without pain. 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 She continues to have deficits in her strength, these exercises were progressed today as well. She also appears limited in progression due to poor carry over at times from session to advice for home setting. Pt will benefit from continued therapy to continue progressing strength, and reduce pain and improve function. Plan of Care Interventions Electrical Stimulation,Hot Pack/Cold Pack,Manual Therapy,Neuro Re-education,Patient/Caregiver Education,Therapeutic Activities,Therapeutic Exercise,Self-Care/Home Management,Other Other Interventions Taping, bracing PT Services Indicated Yes Treatment Frequency and 1-2 x week x 10 visits Duration These treatments will address the objective and functional deficits as defined above. The patient will be advanced safely and appropriately in order for the patient to progress towards his/her prior level of function. Additional exercises will be introduced and as well as a comprehensive home exercise program upon discharge, if needed, ?to ensure carryover of functional gains achieved in the clinic. This treatment plan has been reviewed and agreement upon by the patient.
--- NOTE | 2025-09-24 10:00 | PTOPDC ---
Assessment and note entered by Milana Fofana, PT Evaluation Information Assessment Status Discharge Diagnosis Cervicalgia, Dorsalgia ICD-10 Condition Codes (PT) Cervicalgia M54.2,Pain in low back M54.50 Subjective Information Pt reports during the night when tossing and turning doesn't think about it. States gets ticks that make her lift her head even when laying still. But is going better with not lifting head with movement at night. Pt states right now her back is pretty good. States hurts with bending forward long periods but is doing better with using a chair for these. States is doing better about having her assist oyster picker heavy objects and heavy cleaning like vacuuming. Improvement Neck: 50% Back: 50% Reported Pain Level Pain Score 1,1: Self Report Assessment PT Clinical Summary Pt has attended therapy consistently 20 visits. She has made slow progress with her lumbar ROM, cervical ROM is at max due to C4-7 fusion. She has show some small improvements in her strength as well. Largest lynn has been carry over and problem solving with applying education in therapy to her ADLs and activities. Has been taught and reinforced multiple sessions modifications to her activities to prevent long periods of bending forward, heavy lifting and carrying, and use of her in home helper that is present 3 days a week x 3 hours for the heavier activities. Pt currently appears to have met max benefit from physical therapy, thus is being discharged at this time. She would likely benefit from further referral to pain management to assist in further progression of her pain redutction. Plan of Care PT Services Indicated No
== END 2025-09-24 13:23 | disposition home or self-care (01) ==
LOC: ANHHIPT 09:15
PROVIDERS: PCP Nurse Practitioner Family; Visit Provider Nurse Practitioner Adult Health
DX: M54.2 Cervicalgia (principal); M54.50 Low back pain, unspecified
CPT/HCPCS: 97014; 97110; 97112; 97140; 97162; 97530; 97750; G0283

== ENCOUNTER 2025-10-08 10:33 | Emergency (ER) | payer MEDICARE, SELFPAY ==
--- NOTE | ~2025-10-08 | XR_ITS ---
EXAMINATION: XR chest 2V, 10/08/2025 12:30 BILL BOARD POSTER HISTORY: CHEST PAIN, HX CHF, CHEST PAIN X 2 DAYS COMPARISON: No comparisons available. Technique: 2 views obtained. Findings: Minimal pulmonary venous congestion No pneumothorax. Heart is normal size. Mediastinal and hilar contours are within normal limits. Bony thorax no acute abnormality. Impression: No acute cardiopulmonary abnormality. Reviewed, dictated and finalized at location P. BOARD POSTER Impression: No acute cardiopulmonary abnormality.
--- NOTE | 2025-10-08 10:34 | ECG_ITS ---
Test Date: 2025-10-08 10:40:13 Measurements Intervals [place] Rate: 62 P: 89 TX: 221 QRS: 28 QRSD: 96 T: 51 QT: 403 QTc: 410 Interpretive Statements SINUS RHYTHM WITH FIRST DEGREE AV BLOCK VOLTAGE CRITERIA FOR LVH CANNOT R/O SEPTAL INFARCT, AGE INDETERMINATE BASELINE ARTIFACT- I, II, III, AVR, AVL, AVF ABNORMAL ECG Compared to ECG 11/29/2024 14:43:47 HEART RATE HAS INCREASED Electronically Signed On 10-08-2025 11:34:37 GAME MODERATOR by Raudel De La Torre D.O.
[2025-10-08 10:37] VITALS: BP 130/56; PULSE 67; RESP 20; TEMP 36.8; O2SAT 100
[2025-10-08 11:00] LABS: Hematocrit 35.8 % (37.0-47.0); Hemoglobin 11.5 g/dL (12.0-15.0); Immature Granulocyte Percent A 0.4 % (0-0.5); Lymphocytes Absolute Auto 2.15 K/mm3 (0.9-3.2); Mean Corpuscular HGB Conc 32.1 g/dl (32-36); Mean Corpuscular Hemoglobin 31.3 pg (26-34); Mean Corpuscular Volume 97.3 fl (80-100); Nucleated Red Blood Cells Absolute Auto 0.000 K/mm3 (0.0-0.012); Nucleated Red Blood Cells Perc 0.0 % (0.0-0.2); Platelet Count Result 266 k/mm3 (150-375); Red Blood Count 3.68 M/mm3 (4.2-5.4); White Blood Count 9.8 K/mm3 (4.5-10.0)
[2025-10-08 11:09] LABS: INR 1.1; Prothrombin Time 14.4 Seconds (11.1-14.7)
[2025-10-08 11:10] LABS: Partial Thromboplastin Time 32.8 Seconds (22.3-36.8)
[2025-10-08 11:16] LABS: Alanine Aminotransferase 21 U/L (6-35); Albumin Level 4.3 g/dL (3.5-5.1); Alkaline Phosphatase 88 U/L (38-126); Anion Gap 7 mmol/L (4-12); Aspartate Amino Transferase 34 U/L (14-36); Bilirubin,Total 0.4 mg/dL (0.2-1.3); Blood Urea Nitrogen 19 mg/dL (7-17); Calcium 8.8 mg/dL (8.4-10.2); Carbon Dioxide 24 mmol/L (22-30); Chloride 103 mmol/L (98-107); Estimated CRCL calculation 35 ml/min; Estimated Glomerular Filt Rate 46; Glucose 83 mg/dL (65-110); Lipase 83 U/L (23-300); Potassium 4.3 mmol/L (3.4-5.0); Sodium 134 mmol/L (137-145); Total Protein 7.8 g/dL (6.3-8.2)
[2025-10-08 11:23] LABS: NT Pro B Type Natriuretic Pept 1030 pg/mL (19.9-100); Troponin I < 0.012 ng/mL (0.000-0.034)
[2025-10-08 12:11] VITALS: BP 121/58; PULSE 64; RESP 16; O2SAT 99
[2025-10-08 12:19] VITALS: BP 139/55; PULSE 66; RESP 16; O2SAT 98
[2025-10-08 12:37] LABS: Alanine Aminotransferase 21 U/L (6-35); Albumin Level 4.0 g/dL (3.5-5.1); Alkaline Phosphatase 88 U/L (38-126); Anion Gap 6 mmol/L (4-12); Aspartate Amino Transferase 28 U/L (14-36); Bilirubin,Total 0.4 mg/dL (0.2-1.3); Blood Urea Nitrogen 20 mg/dL (7-17); Calcium 9.1 mg/dL (8.4-10.2); Carbon Dioxide 27 mmol/L (22-30); Chloride 102 mmol/L (98-107); Estimated CRCL calculation 36 ml/min; Estimated Glomerular Filt Rate 48; Glucose 84 mg/dL (65-110); Lipase 96 U/L (23-300); Potassium 4.4 mmol/L (3.4-5.0); Sodium 135 mmol/L (137-145); Total Protein 7.2 g/dL (6.3-8.2)
[2025-10-08 12:54] LABS: Troponin I < 0.012 ng/mL (0.000-0.034)
[2025-10-08] MEDS: AZITHROMYCIN 500 MG TABLET PO (13:06)
[2025-10-08] MEDS: FUROSEMIDE 40 MG TABLET PO (13:06)
[2025-10-08 13:25] VITALS: PULSE 57; RESP 19
[2025-10-08] MEDS: IPRATROPIUM 0.5 MG/ALBUTEROL SULFATE 2.5 MG (BASE) AMPUL.NEB 3 ML INHALATION (13:25)
--- NOTE | 2025-10-08 14:31 | ED.CHESTPAIN ---
HPI - Chest Pain General Chief Complaint: Chest Pain Stated Complaint: CHEST PAIN X3D Time Seen by Provider: 10/08/25 12:18 History of Present Illness HPI narrative: For last few days, patient has had more productive cough, and some chest pain with coughing. She took her 's antibiotic yesterday and this morning already feels much better. She does have history of interstitial lung disease, possible CHF, has been taking her medications as prescribed. No swelling to her legs, no difficulty breathing unless she is laying flat. Related Data Home Medications ?Medication ?Instructions ?Recorded ?Confirmed ?Last Taken ?Type valacyclovir 500 mg tablet 500 mg PO BID 10/07/22 09/07/25 12/02/24 History acetaminophen 325 mg capsule 325 mg PO ONCE PRN pain 11/28/24 09/07/25 12/02/24 History (Tylenol) Allergies Allergy/AdvReac Type Severity Reaction Status Date / Time Opioids - Morphine Analogues Allergy Severe Swelling Verified 10/08/25 10:33 tramadol (From Ultracet) AdvReac Severe Itching Verified 10/08/25 10:33 ubrogepant (From Ubrelvy) AdvReac Severe Headache Verified 10/08/25 10:33 atogepant (From Qulipta) AdvReac Intermediate Headache Verified 10/08/25 10:33 Review of Systems Review of Systems: All systems reviewed & are unremarkable except as noted in HPI and below PMFSH Past Medical History Medical History Pulmonary hypertension CAD (coronary artery disease) Fibromyalgia Ankylosing spondylitis Cervical osteoarthritis Headache Migraine Congestive heart failure with left ventricular diastolic dysfunction Left shoulder pain Degenerative arthritis of knee, bilateral History of hiatal hernia IBS (irritable bowel syndrome) History of heart attack Headache Arthritis Surgical History Surgical History H/O colectomy 12/06/24 Laparoscopic transverse colectomy with anastomosis, da Elif assisted Dr. Miranda H/O colonoscopy with polypectomy 01/21/23 Dr. Mark History of rotator cuff surgery History of cataract surgery History of neck surgery History of foot surgery History of hand surgery History of axillary surgery History of tonsillectomy and adenoidectomy Family History Family History Mother Kidney malignancy Father Prostate carcinoma Social History Social History Social History: 07/05/25- very confident with medical forms Smoking packs per day: 0.25 Smoking cigarettes per day: 5.0 Years smoked: 20 Smoking pack-years: 5.00 Smoking status: Former smoker Alcohol intake: never Substance use: never Substance use type: does not use Lack of Transportation: No Lack of Food: Never True Current Housing: I Have Housing Concerned About Future Housing: No Difficulty Paying Gas/Electric Bills: No Difficulty Paying for Meds: No Currently Unemployed: No Education: High School Diploma/GED Difficulty w/ Childcare or Family Care: No Living arrangements: with family Additional living arrangements comments: Occupation/Education: retired Gender identity (if verbalized by the patient): Female Sexual Orientation (if Verbalized by the Patient): Straight or Heterosexual Spiritual care concerns: Yes (Mormon) Exam Narrative: EXAMINATION OF ORGAN SYSTEMS/BODY AREAS: Constitutional: Vital signs per nursing GENERAL:[No acute distress, non-toxic appearing.] HEAD: Normal with no signs of head trauma. EYES: EOMI, conjunctiva normal ENT: Hearing grossly intact LUNGS: Nonlabored breathing. Some diminished breath sounds/crackles, at bases. Speaking full sentences HEART: [Regular rate and rhythm] ABD: [Soft], [nontender to palpation] EXT: Normal range of motion SKIN: [No rashes or lesions.] NEURO: [Alert. No gross focal sensory or strength deficits.] PSYCH: Normal affect Course Vital Signs Vital signs: Vital Signs Temperature 98.2 F 10/08/25 10:37 Pulse Rate 67 10/08/25 10:37 Respiratory Rate 20 10/08/25 10:37 Blood Pressure 130/56 L 10/08/25 10:37 Pulse Oximetry 100 10/08/25 10:37 Oxygen Delivery Room Air 10/08/25 10:37 Temperature 98.2 F 10/08/25 10:37 Pulse Rate 57 L 10/08/25 13:25 Respiratory Rate 19 10/08/25 13:25 Blood Pressure 139/55 L 10/08/25 12:19 Pulse Oximetry 98 10/08/25 12:19 Oxygen Delivery Room Air 10/08/25 12:21 [facility] MDM Narrative Medical decision making narrative: Patient presents here with chest pain and shortness of breath, worse if she lays flat, ongoing for last 2 days. Appearing on exam, some diminished lung sounds and crackles in both lungs. EKG done in triage negative for acute ischemic changes. Cardiac workup is initiated. EKG: Performed in triage and interpreted by me. Normal sinus rhythm. Rate 62. Normal axis. IL 221. QRS duration normal. QTc normal. No pathologic Q waves. No ST segment elevation or depression to suggest acute ischemia. No RV strain pattern. HEART score is 3 with no acute ischemic changes on EKG and negative troponin making ACS unlikely. Patient without DVT symptoms and is already on blood thinners, so PE very unlikely. Presentation not consistent with dissection or aneurysm without radiation of pain or pulse deficits. CXR negative for mediastinal widening. No abdominal pain or signs of sepsis that would be concerning for esophageal perforation or mediastinitis. No cardiomegaly or JVD to suggest pericardial effusion/tamponade. Will try some breathing treatments, steroids for her interstitial lung disease, her chest x-ray is showing some signs of extra fluid so I did give her a few extra tabs of Lasix. Patient is having a productive cough and says that her the antibiotics seem to help her feel better so I will give her short course and have her follow-up with her silk blocker with return precautions. On repeat evaluation just prior to discharge, the patient is no acute distress. I had a long discussion with the patient and with shared decision making, she is comfortable with outpatient management. She was given clear return instructions by myself in person as well as on discharge paperwork. Differential Diagnosis Differential Diagnosis: Pneumonia, CHF exacerbation, COPD exacerbation, ACS Lab Data 10/08/25 10:49 10/08/25 10:49 Labs: Lab Results 10/08/25 10/08/25 10/08/25 Range/Units 10:49 10:49 10:49 WBC 9.8 (4.5-10.0) K/mm3 RBC 3.68 L (4.2-5.4) M/mm3 Hgb 11.5 L (12.0-15.0) g/dL Hct 35.8 L (37.0-47.0) % MCV 97.3 (80-100) fl MCH 31.3 (26-34) pg MCHC 32.1 (32-36) g/dl RDW 14.5 (11.5-14.5) % Plt Count 266 (150-375) k/mm3 MPV 10.5 H (7.4-10.4) fl Immature Gran % (Auto) 0.4 (0-0.5) % Neut % (Auto) 63.4 (45.5-73.1) % Lymph % (Auto) 22.0 (18.3-44.2) % [place] % (Auto) 10.7 H (2.6-8.5) % Eos % (Auto) 2.6 (0-4.4) % Baso % (Auto) 0.9 (0.2-1.2) % Lymph # (Auto) 2.15 (0.9-3.2) K/mm3 [place] # (Auto) 1.1 H (0.1-0.6) K/mm3 Eos # (Auto) 0.3 (0-0.3) K/mm3 Baso # (Auto) 0.1 (0.0-0.1) K/mm3 Abs Immat Gran (auto) 0.04 H (0.00-0.031) K/mm3 Absolute Neuts (auto) 6.2 (1.3-6.7) K/mm3 Absolute Nucleated RBC 0.000 (0.0-0.012) K/mm3 Nucleated RBC % 0.0 (0.0-0.2) % PT 14.4 (11.1-14.7) Seconds INR 1.1 APTT 32.8 (22.3-36.8) Seconds Sodium 135 L 134 L (137-145) mmol/L Potassium 4.4 4.3 (3.4-5.0) mmol/L Chloride 102 (98-107) mmol/L Carbon Dioxide (22-30) mmol/L Anion Gap (4-12) mmol/L BUN (7-17) mg/dL Creatinine (0.7-1.0) mg/dL Estim Creat Clear Calc ml/min Estimated GFR (59 - ) Glucose (65-110) mg/dL Calcium (8.4-10.2) mg/dL Total Bilirubin (0.2-1.3) mg/dL AST (14-36) U/L ALT (6-35) U/L Alkaline Phosphatase (38-126) U/L Troponin I (0.000-0.034) ng/mL NT-Pro-B Natriuret Pep (19.9-100) pg/mL Total Protein (6.3-8.2) g/dL Albumin (3.5-5.1) g/dL Lipase (23-300) U/L 10/08/25 10/08/25 10/08/25 Range/Units 10:49 10:49 10:49 WBC (4.5-10.0) K/mm3 RBC (4.2-5.4) M/mm3 Hgb (12.0-15.0) g/dL Hct (37.0-47.0) % MCV (80-100) fl MCH (26-34) pg MCHC (32-36) g/dl RDW (11.5-14.5) % Plt Count (150-375) k/mm3 MPV (7.4-10.4) fl Immature Gran % (Auto) (0-0.5) % Neut % (Auto) (45.5-73.1) % Lymph % (Auto) (18.3-44.2) % [place] % (Auto) (2.6-8.5) % Eos % (Auto) (0-4.4) % Baso % (Auto) (0.2-1.2) % Lymph # (Auto) (0.9-3.2) K/mm3 [place] # (Auto) (0.1-0.6) K/mm3 Eos # (Auto) (0-0.3) K/mm3 Baso # (Auto) (0.0-0.1) K/mm3 Abs Immat Gran (auto) (0.00-0.031) K/mm3 Absolute Neuts (auto) (1.3-6.7) K/mm3 Absolute Nucleated RBC (0.0-0.012) K/mm3 Nucleated RBC % (0.0-0.2) % PT (11.1-14.7) Seconds INR APTT (22.3-36.8) Seconds Sodium (137-145) mmol/L Potassium (3.4-5.0) mmol/L Chloride 103 (98-107) mmol/L Carbon Dioxide 27 24 (22-30) mmol/L Anion Gap 6 7 (4-12) mmol/L BUN 20 H (7-17) mg/dL Creatinine (0.7-1.0) mg/dL Estim Creat Clear Calc ml/min Estimated GFR (59 - ) Glucose (65-110) mg/dL Calcium (8.4-10.2) mg/dL Total Bilirubin (0.2-1.3) mg/dL AST (14-36) U/L ALT (6-35) U/L Alkaline Phosphatase (38-126) U/L Troponin I (0.000-0.034) ng/mL NT-Pro-B Natriuret Pep (19.9-100) pg/mL Total Protein (6.3-8.2) g/dL Albumin (3.5-5.1) g/dL Lipase (23-300) U/L 10/08/25 10/08/25 10/08/25 Range/Units 10:49 10:49 10:49 WBC (4.5-10.0) K/mm3 RBC (4.2-5.4) M/mm3 Hgb (12.0-15.0) g/dL Hct (37.0-47.0) % MCV (80-100) fl MCH (26-34) pg MCHC (32-36) g/dl RDW (11.5-14.5) % Plt Count (150-375) k/mm3 MPV (7.4-10.4) fl Immature Gran % (Auto) (0-0.5) % Neut % (Auto) (45.5-73.1) % Lymph % (Auto) (18.3-44.2) % [place] % (Auto) (2.6-8.5) % Eos % (Auto) (0-4.4) % Baso % (Auto) (0.2-1.2) % Lymph # (Auto) (0.9-3.2) K/mm3 [place] # (Auto) (0.1-0.6) K/mm3 Eos # (Auto) (0-0.3) K/mm3 Baso # (Auto) (0.0-0.1) K/mm3 Abs Immat Gran (auto) (0.00-0.031) K/mm3 Absolute Neuts (auto) (1.3-6.7) K/mm3 Absolute Nucleated RBC (0.0-0.012) K/mm3 Nucleated RBC % (0.0-0.2) % PT (11.1-14.7) Seconds INR APTT (22.3-36.8) Seconds Sodium (137-145) mmol/L Potassium (3.4-5.0) mmol/L Chloride (98-107) mmol/L Carbon Dioxide (22-30) mmol/L Anion Gap (4-12) mmol/L BUN 19 H (7-17) mg/dL Creatinine 1.09 H 1.13 H (0.7-1.0) mg/dL Estim Creat Clear Calc 36 35 ml/min Estimated GFR 48 L (59 - ) Glucose (65-110) mg/dL Calcium (8.4-10.2) mg/dL Total Bilirubin (0.2-1.3) mg/dL AST (14-36) U/L ALT (6-35) U/L Alkaline Phosphatase (38-126) U/L Troponin I (0.000-0.034) ng/mL NT-Pro-B Natriuret Pep (19.9-100) pg/mL Total Protein (6.3-8.2) g/dL Albumin (3.5-5.1) g/dL Lipase (23-300) U/L 10/08/25 10/08/25 10/08/25 Range/Units 10:49 10:49 10:49 WBC (4.5-10.0) K/mm3 RBC (4.2-5.4) M/mm3 Hgb (12.0-15.0) g/dL Hct (37.0-47.0) % MCV (80-100) fl MCH (26-34) pg MCHC (32-36) g/dl RDW (11.5-14.5) % Plt Count (150-375) k/mm3 MPV (7.4-10.4) fl Immature Gran % (Auto) (0-0.5) % Neut % (Auto) (45.5-73.1) % Lymph % (Auto) (18.3-44.2) % [place] % (Auto) (2.6-8.5) % Eos % (Auto) (0-4.4) % Baso % (Auto) (0.2-1.2) % Lymph # (Auto) (0.9-3.2) K/mm3 [place] # (Auto) (0.1-0.6) K/mm3 Eos # (Auto) (0-0.3) K/mm3 Baso # (Auto) (0.0-0.1) K/mm3 Abs Immat Gran (auto) (0.00-0.031) K/mm3 Absolute Neuts (auto) (1.3-6.7) K/mm3 Absolute Nucleated RBC (0.0-0.012) K/mm3 Nucleated RBC % (0.0-0.2) % PT (11.1-14.7) Seconds INR APTT (22.3-36.8) Seconds Sodium (137-145) mmol/L Potassium (3.4-5.0) mmol/L Chloride (98-107) mmol/L Carbon Dioxide (22-30) mmol/L Anion Gap (4-12) mmol/L BUN (7-17) mg/dL Creatinine (0.7-1.0) mg/dL Estim Creat Clear Calc ml/min Estimated GFR 46 L (59 - ) Glucose 84 83 (65-110) mg/dL Calcium 9.1 8.8 (8.4-10.2) mg/dL Total Bilirubin 0.4 (0.2-1.3) mg/dL AST (14-36) U/L ALT (6-35) U/L Alkaline Phosphatase (38-126) U/L Troponin I (0.000-0.034) ng/mL NT-Pro-B Natriuret Pep (19.9-100) pg/mL Total Protein (6.3-8.2) g/dL Albumin (3.5-5.1) g/dL Lipase (23-300) U/L 10/08/25 10/08/25 10/08/25 Range/Units 10:49 10:49 10:49 WBC (4.5-10.0) K/mm3 RBC (4.2-5.4) M/mm3 Hgb (12.0-15.0) g/dL Hct (37.0-47.0) % MCV (80-100) fl MCH (26-34) pg MCHC (32-36) g/dl RDW (11.5-14.5) % Plt Count (150-375) k/mm3 MPV (7.4-10.4) fl Immature Gran % (Auto) (0-0.5) % Neut % (Auto) (45.5-73.1) % Lymph % (Auto) (18.3-44.2) % [place] % (Auto) (2.6-8.5) % Eos % (Auto) (0-4.4) % Baso % (Auto) (0.2-1.2) % Lymph # (Auto) (0.9-3.2) K/mm3 [place] # (Auto) (0.1-0.6) K/mm3 Eos # (Auto) (0-0.3) K/mm3 Baso # (Auto) (0.0-0.1) K/mm3 Abs Immat Gran (auto) (0.00-0.031) K/mm3 Absolute Neuts (auto) (1.3-6.7) K/mm3 Absolute Nucleated RBC (0.0-0.012) K/mm3 Nucleated RBC % (0.0-0.2) % PT (11.1-14.7) Seconds INR APTT (22.3-36.8) Seconds Sodium (137-145) mmol/L Potassium (3.4-5.0) mmol/L Chloride (98-107) mmol/L Carbon Dioxide (22-30) mmol/L Anion Gap (4-12) mmol/L BUN (7-17) mg/dL Creatinine (0.7-1.0) mg/dL Estim Creat Clear Calc ml/min Estimated GFR (59 - ) Glucose (65-110) mg/dL Calcium (8.4-10.2) mg/dL Total Bilirubin 0.4 (0.2-1.3) mg/dL AST 28 34 (14-36) U/L ALT 21 21 (6-35) U/L Alkaline Phosphatase 88 (38-126) U/L Troponin I (0.000-0.034) ng/mL NT-Pro-B Natriuret Pep (19.9-100) pg/mL Total Protein (6.3-8.2) g/dL Albumin (3.5-5.1) g/dL Lipase (23-300) U/L 10/08/25 10/08/25 10/08/25 Range/Units 10:49 10:49 10:49 WBC (4.5-10.0) K/mm3 RBC (4.2-5.4) M/mm3 Hgb (12.0-15.0) g/dL Hct (37.0-47.0) % MCV (80-100) fl MCH (26-34) pg MCHC (32-36) g/dl RDW (11.5-14.5) % Plt Count (150-375) k/mm3 MPV (7.4-10.4) fl Immature Gran % (Auto) (0-0.5) % Neut % (Auto) (45.5-73.1) % Lymph % (Auto) (18.3-44.2) % [place] % (Auto) (2.6-8.5) % Eos % (Auto) (0-4.4) % Baso % (Auto) (0.2-1.2) % Lymph # (Auto) (0.9-3.2) K/mm3 [place] # (Auto) (0.1-0.6) K/mm3 Eos # (Auto) (0-0.3) K/mm3 Baso # (Auto) (0.0-0.1) K/mm3 Abs Immat Gran (auto) (0.00-0.031) K/mm3 Absolute Neuts (auto) (1.3-6.7) K/mm3 Absolute Nucleated RBC (0.0-0.012) K/mm3 Nucleated RBC % (0.0-0.2) % PT (11.1-14.7) Seconds INR APTT (22.3-36.8) Seconds Sodium (137-145) mmol/L Potassium (3.4-5.0) mmol/L Chloride (98-107) mmol/L Carbon Dioxide (22-30) mmol/L Anion Gap (4-12) mmol/L BUN (7-17) mg/dL Creatinine (0.7-1.0) mg/dL Estim Creat Clear Calc ml/min Estimated GFR (59 - ) Glucose (65-110) mg/dL Calcium (8.4-10.2) mg/dL Total Bilirubin (0.2-1.3) mg/dL AST (14-36) U/L ALT (6-35) U/L Alkaline Phosphatase 88 (38-126) U/L Troponin I < 0.012 < 0.012 (0.000-0.034) ng/mL NT-Pro-B Natriuret Pep 1030 H (19.9-100) pg/mL Total Protein 7.2 7.8 (6.3-8.2) g/dL Albumin 4.0 (3.5-5.1) g/dL Lipase (23-300) U/L 10/08/25 10/08/25 Range/Units 10:49 10:49 WBC (4.5-10.0) K/mm3 RBC (4.2-5.4) M/mm3 Hgb (12.0-15.0) g/dL Hct (37.0-47.0) % MCV (80-100) fl MCH (26-34) pg MCHC (32-36) g/dl RDW (11.5-14.5) % Plt Count (150-375) k/mm3 MPV (7.4-10.4) fl Immature Gran % (Auto) (0-0.5) % Neut % (Auto) (45.5-73.1) % Lymph % (Auto) (18.3-44.2) % [place] % (Auto) (2.6-8.5) % Eos % (Auto) (0-4.4) % Baso % (Auto) (0.2-1.2) % Lymph # (Auto) (0.9-3.2) K/mm3 [place] # (Auto) (0.1-0.6) K/mm3 Eos # (Auto) (0-0.3) K/mm3 Baso # (Auto) (0.0-0.1) K/mm3 Abs Immat Gran (auto) (0.00-0.031) K/mm3 Absolute Neuts (auto) (1.3-6.7) K/mm3 Absolute Nucleated RBC (0.0-0.012) K/mm3 Nucleated RBC % (0.0-0.2) % PT (11.1-14.7) Seconds INR APTT (22.3-36.8) Seconds Sodium (137-145) mmol/L Potassium (3.4-5.0) mmol/L Chloride (98-107) mmol/L Carbon Dioxide (22-30) mmol/L Anion Gap (4-12) mmol/L BUN (7-17) mg/dL Creatinine (0.7-1.0) mg/dL Estim Creat Clear Calc ml/min Estimated GFR (59 - ) Glucose (65-110) mg/dL Calcium (8.4-10.2) mg/dL Total Bilirubin (0.2-1.3) mg/dL AST (14-36) U/L ALT (6-35) U/L Alkaline Phosphatase (38-126) U/L Troponin I (0.000-0.034) ng/mL NT-Pro-B Natriuret Pep (19.9-100) pg/mL Total Protein (6.3-8.2) g/dL Albumin 4.3 (3.5-5.1) g/dL Lipase 96 83 (23-300) U/L Imaging Data Radiologist's impression: ITS Impressions Chest X-Ray 10/08/25 12:38 Impression: No acute cardiopulmonary abnormality. Discharge Plan Discharge Clinical Impression: Acute bronchitis, CHF exacerbation, Chest pain Patient Disposition: Home Condition: Stable Instructions: Antibiotic Form, Chest Pain (ED), Acute Bronchitis (ED) Additional Instructions: Please take medications as prescribed, and for the next week, take 1 extra dose of the furosemide (water pill). Try to follow-up with your doctor in the next 2-4 days for repeat evaluation to make sure you are doing better. If your symptoms worsen, especially if you start having more chest pain or difficulty breathing, please come back to the emergency room. Patient Language: Telugu Prescriptions: New estradiol 1 mg tablet 1 mg PO DAILY 21 Days Qty: 21 0RF Rx Instructions: off 1 week; repeat cycle azithromycin 250 mg tablet 250 mg PO DAILY 4 Days Qty: 4 0RF Rx Instructions: start on day 2 of therapy prednisone 20 mg tablet 40 mg PO DAILY 4 Days Qty: 8 0RF furosemide [Lasix] 20 mg tablet 20 mg PO DAILY Qty: 7 0RF No Action budesonide-formoterol [Symbicort] 160-4.5 mcg/actuation HFA aerosol inhaler 2 puff inhalation Q12H Qty: 10.2 3RF Rx Instructions: Rinse mouth and spit after each use metoprolol succinate 25 mg tablet extended release 24 hr 12.5 mg PO DAILY Qty: 45 2RF valacyclovir 500 mg tablet 500 mg PO BID acetaminophen [Tylenol] 325 mg capsule 325 mg PO ONCE PRN (Reason: pain) furosemide 20 mg tablet 20 mg PO DAILY Qty: 90 2RF pravastatin 10 mg tablet 10 mg PO DAILY Qty: 90 1RF albuterol sulfate 90 mcg/actuation HFA aerosol inhaler 2 inh inhalation Q4H PRN (Reason: shortness of breath or wheezing) Qty: 8.5 0RF amiodarone 200 mg tablet See Rx Instructions .ROUTE .COMPLEX Qty: 90 2RF Dose Instruction: TAKE 1 TABLET BY MOUTH EVERY DAY Rx Instructions: TAKE 1 TABLET BY MOUTH EVERY DAY pantoprazole 20 mg tablet,delayed release (DR/EC) 20 mg PO BID Qty: 180 1RF cholecalciferol (vitamin D3) 1,250 mcg (50,000 unit) capsule 1,250 mcg PO WEEKLY Qty: 12 0RF Eliquis 5 mg tablet 5 mg PO BID Qty: 180 1RF estradiol 1 mg tablet 1 mg PO DAILY Qty: 30 1RF Follow-up/Referrals: Maria Allen, [employer] [Primary Care Provider, Family Practice] - 3 Days
== END 2025-10-08 13:51 | disposition home or self-care (01) ==
LOC: ANHED 13:00
PROVIDERS: General Practice; Emergency Provider Emergency Medicine; PCP Nurse Practitioner Family
DX: J20.9 Acute bronchitis, unspecified (principal); I50.9 Heart failure, unspecified; R07.9 Chest pain, unspecified; I27.20 Pulmonary hypertension, unspecified; I25.10 Atherosclerotic heart disease of native coronary artery without angina pectoris; I25.2 Old myocardial infarction; M79.7 Fibromyalgia; M17.0 Bilateral primary osteoarthritis of knee; M47.812 Spondylosis without myelopathy or radiculopathy, cervical region; Z87.891 Personal history of nicotine dependence; Z90.49 Acquired absence of other specified parts of digestive tract; I44.0 Atrioventricular block, first degree
CPT/HCPCS: 36415; 71046; 80053; 83690; 83880; 84484; 85025; 85610; 85730; 93005; 94640; 99284; A9270; J7512